=== PATIENT | female | born 1955 | race Caucasian/White ===

== ENCOUNTER 2017-04-29 12:06 | Outpatient (RCR) | payer SELFPAY | END 2017-05-28 23:59 | LOC: NS 12:06 | PROVIDERS: Family Provider Family Medicine; PCP Family Medicine; Visit Provider Specialist | DX: Z68.42 Body mass index [BMI] 45.0-49.9, adult (principal); Z71.3 Dietary counseling and surveillance | CPT/HCPCS: 97802 ==

== ENCOUNTER 2017-06-23 08:59 | Day surgery (SDC) | payer OTHER, SELFPAY ==
[2017-06-23 09:18] VITALS: BP 150/66; PULSE 63; RESP 16; TEMP 37.1; O2SAT 99; BMI 46.3
[2017-06-23] MEDS: Ciprofloxacin 0.3% 2.5ml Bottle 1 DRP (11:30)
--- NOTE | 2017-06-23 11:35 | PCM.DC.EAR ---
Discharge Diet: No Restrictions Discharge Activity: Return to Normal Activity Additional Activity Instructions:: Keep ears dry. Allergies/Adverse Reactions: Allergies No Known Allergies Allergy (Verified 06/20/17 14:52) Medications to take at Discharge Aspirin [Aspirin, Baby] 81 mg PO DAILY@0800 tab.chew 01/20/15 L.acidoph,Paracasei, B.lactis [Probiotic] 1 each PO DAILY 06/20/17 Multivitamin [Daily Multiple Vitamin] 1 each PO DAILY 06/20/17 Primary Care Physician: Igor Velez MD [Primary Care Provider] - Please Follow Up With: Angel Gaming MD - [phone] When: 1-2 weeks.
[2017-06-23 11:38] VITALS: BP 120/58; BP 150/66; PULSE 65; RESP 18; TEMP 36.6; O2SAT 94
[2017-06-23 11:45] VITALS: BP 114/54; BP 150/66; PULSE 64; RESP 16; O2SAT 94
[2017-06-23 11:58] VITALS: BP 125/62; BP 150/66; PULSE 59; RESP 16; O2SAT 99
[2017-06-23 12:10] VITALS: BP 132/79; BP 150/66; PULSE 57; RESP 16; TEMP 36.2; O2SAT 97
[2017-06-23 12:38] VITALS: BP 150/66
--- NOTE | 2017-06-23 12:46 | PCM.OP.BLANK ---
Operative Report Date of Procedure: 06/23/17 Preoperative diagnosis: Chronic serous otitis media Postoperative diagnosis: Same Procedure: Bilateral myringotomy with tympanostomy tube placement Anesthesia: General per Silvina May CRNA Details of procedure: The patient was transported to the operating room and remained on the critical care nurse cart. After the administration of adequate general mask anesthesia the patient was properly positioned, and the microscope was utilized to examine the left ear. Examination revealed retracted drum. Upon myringotomy in the anterior inferior quadrant very little serous fluid was remaining and was evacuated. Ciprofloxacin drops were rinsed through the middle ear and a parasol tube placed. Attention was then directed to the right ear which was examined and treated in similar fashion. In contrast the right ear had more fluid. Upon myringotomy in the anterior inferior aspect this fluid was evacuated. Ciprofloxacin drops were rinsed through the middle ear and a parasol tube placed. Procedure was then terminated. Patient tolerated the procedure well, did not sustain any intraoperative anesthetic or surgical complication, was taken to the PACU where she was noted to be in satisfactory condition. Angel Gaming MD
--- NOTE | 2017-06-23 12:50 | OP.PCM_ITS ---
Operative Report Date of Procedure: 06/23/17 Preoperative diagnosis: Chronic serous otitis media Postoperative diagnosis: Same Procedure: Bilateral myringotomy with tympanostomy tube placement Anesthesia: General per Silvina May CRNA Details of procedure: The patient was transported to the operating room and remained on the care associate cart. After the administration of adequate general mask anesthesia the patient was properly positioned, and the microscope was utilized to examine the left ear. Examination revealed retracted drum. Upon myringotomy in the anterior inferior quadrant very little serous fluid was remaining and was evacuated. Ciprofloxacin drops were rinsed through the middle ear and a parasol tube placed. Attention was then directed to the right ear which was examined and treated in similar fashion. In contrast the right ear had more fluid. Upon myringotomy in the anterior inferior aspect this fluid was evacuated. Ciprofloxacin drops were rinsed through the middle ear and a parasol tube placed. Procedure was then terminated. Patient tolerated the procedure well, did not sustain any intraoperative anesthetic or surgical complication, was taken to the PACU where she was noted to be in satisfactory condition. Angel Gaming MD
== END 2017-06-23 12:50 | disposition home or self-care (01) ==
LOC: SDC 09:02 → AC 09:03
PROVIDERS: Family Provider Family Medicine; PCP Family Medicine; Visit Provider Otolaryngology Otolaryngology/Facial Plastic Surgery
PROC: (CPT 69436; principal; 2017-06-23 11:00)
DX: H65.23 Chronic serous otitis media, bilateral (principal); H69.83 Other specified disorders of Eustachian tube, bilateral; G47.30 Sleep apnea, unspecified; I69.351 Hemiplegia and hemiparesis following cerebral infarction affecting right dominant side; Z86.2 Personal history of diseases of the blood and blood-forming organs and certain disorders involving the immune mechanism; Z78.0 Asymptomatic menopausal state; Z79.82 Long term (current) use of aspirin
CPT/HCPCS: 00126; 69436; J7120; J2405

== ENCOUNTER → 2017-09-26 10:32 | Outpatient (CLI) | payer OTHER, SELFPAY ==
[2017-09-26 11:44] LABS: Free T3 2.7 pg/mL (2.18-3.98); T4 Free Direct 1.06 ng/dL (0.76-1.46); Thyroid Stim Hormone (TSH) 1.98 uIU/mL (0.358-3.74)
[2017-09-28 09:45] LABS: Anti-Thyroglobulin AB < 1.0 IU/mL (0.0-0.9); Thyroglobulin, Serum Qt. 7.3 ng/mL (1.5-38.5); Thyroid Peroxidase AB 14 IU/mL (0-34)
== END ==
PROVIDERS: Family Provider Family Medicine; PCP Family Medicine
DX: E03.9 Hypothyroidism, unspecified (principal)
CPT/HCPCS: 36415; 84432; 84439; 84443; 84481; 86376; 86800

== ENCOUNTER → 2018-03-13 08:00 | Outpatient (CLI) | payer OTHER, SELFPAY ==
[2018-03-13 09:49] LABS: Hemoglobin A1c 7.3 % (4.2-6.3)
[2018-03-13 10:08] LABS: Cholesterol 153 mg/dL (200); Free T3 2.6 pg/mL (2.18-3.98); High Density Lipoprotein 36 mg/dL; T4 Free Direct 1.13 ng/dL (0.76-1.46); Thyroid Stim Hormone (TSH) 1.46 uIU/mL (0.358-3.74); Triglycerides 112 mg/dL; Very Low Density Lipoprotein 22 mg/dL (5-40)
== END ==
PROVIDERS: Family Provider Family Medicine; PCP Family Medicine
DX: E03.9 Hypothyroidism, unspecified (principal); E11.9 Type 2 diabetes mellitus without complications
CPT/HCPCS: 36415; 80061; 83036; 84439; 84443; 84481

== ENCOUNTER → 2018-07-03 | Outpatient (CLI) | payer OTHER, SELFPAY ==
[2018-07-03 07:45] LABS: Absolute Lymphocyte Count 1.95 X10^3/ul (0.83-4.51); Absolute Neutrophil Count 4.4 X10^3/uL (2.0-7.7); Basophil# 0.03 X10^3/uL; Basophil% 0.4 % (0-1); Eosinophils% 2.8 % (0-5); Hematocrit 40.2 % (37-47); Hemoglobin 12.4 g/dl (12.0-15.0); Lymphocyte # 1.95 X10^3/ul (4.0); Lymphocyte % 27.5 % (19-41); Mean Corp Hgb Conc 30.8 g/gl (32-36); Mean Corpuscular Hgb 24.5 pg (27.0-32.0); Mean Corpuscular Volume 79.4 fL (81-99); Mean Platelet Vol. 10.3 fl (6.2-12.0); Monocyte# 0.47 X10^3/uL; Monocyte% 6.6 % (0-10); Neutrophil # 4.44 X10^3/uL (2.7-7.7); Neutrophil % 62.7 % (47-70); Platelet Count 187 K/mm3 (150-450); RBC Distribution Width CV 16.6 % (11.6-14.6); RBC Distribution Width SD 47.7 fl (35.1-43.9); Red Blood Count 5.06 M/mm3 (4.2-5.4); White Blood Count 7.1 K/mm3 (4.4-11.0)
[2018-07-03 07:49] LABS: POSITIVE COUNT NO; POSITIVE DIFFERENTIAL NO; POSITIVE MORPHOLOGY NO
[2018-07-03 07:59] LABS: Hemoglobin A1c 6.7 % (4.2-6.3)
[2018-07-03 08:08] LABS: AST(SGOT) 14 U/L (15-37); Alanine Aminotransfer ALT/SGPT 22 U/L (13-56); Albumin, Serum 3.4 g/dL (3.2-5.0); Alkaline Phosphatase 80 U/L (45-117); Anion Gap 7 (5-15); BUN 25 mg/dL (7-18); BUN/Creat Ratio 26.1 RATIO (10-20); Calcium,Total 8.8 mg/dL (8.5-10.1); Chloride 109 mmol/L (98-107); Cholesterol 159 mg/dL (200); Creatinine, Serum 0.96 mg/dL (0.55-1.02); EST Glomerular Filtration Rate 63 mL/min (>60); Est Glom Filt Rate - Afr Amer 76 mL/min (>60); Globulin 3.5 g/dL (2.2-4.2); Glucose 158 mg/dL (74-106); High Density Lipoprotein 44 mg/dL; Potassium 4.3 mmol/L (3.5-5.1); Protein, Total 6.9 g/dL (6.4-8.2); Sodium Level 141 mmol/L (136-145); Thyroid Stim Hormone (TSH) 2.72 uIU/mL (0.358-3.74); Triglycerides 101 mg/dL; Very Low Density Lipoprotein 20 mg/dL (5-40)
== END | disposition home or self-care (01) ==
LOC: LAB 06:45
PROVIDERS: Family Provider Family Medicine; PCP Family Medicine; Referring Provider Registered Nurse; Visit Provider Registered Nurse
DX: R53.82 Chronic fatigue, unspecified (principal); E66.9 Obesity, unspecified
CPT/HCPCS: 36415; 80053; 80061; 83036; 84443; 85025

== ENCOUNTER → 2018-10-11 | Outpatient (CLI) | payer OTHER, SELFPAY ==
--- NOTE | 2018-10-11 15:30 | EKG12_ITS ---
Test Reason : FAM HX OF HEART DIS. Blood Pressure : / mmHG Vent. Rate : 052 BPM Atrial Rate : 052 BPM P-R Int : 164 ms QRS Dur : 104 ms QT Int : 482 ms P-R-T Axes : 003 -01 007 degrees QTc Int : 448 ms Sinus bradycardia with sinus arrhythmia Otherwise normal ECG Confirmed by NEEMA KRUEGER ([id number]), film and video editor LINO LEON ([id number]) on 10/12/2018 2:14:44 PM Referred By: OUT DOCTOR Confirmed By:NEEMA KRUEGER
[2018-10-11 15:54] LABS: Absolute Lymphocyte Count 2.25 X10^3/uL (0.83-4.51); Absolute Neutrophil Count 5.2 X10^3/uL (2.0-7.7); Basophil# 0.03 X10^3/uL; Basophil% 0.4 % (0-1); Eosinophil# 0.27 X10^3/uL; Eosinophils% 3.3 % (0-5); Hematocrit 41.7 % (37-47); Hemoglobin 12.7 g/dL (12.0-15.0); Lymphocyte # 2.25 X10^3/ul (4.0); Lymphocyte % 27.3 % (19-41); Mean Corp Hgb Conc 30.5 g/dL (32-36); Mean Corpuscular Volume 81.9 fL (81-99); Mean Platelet Vol. 10.2 fl (6.2-12.0); Monocyte# 0.47 X10^3/uL; Monocyte% 5.7 % (0-10); NRBC Flagged by Analyzer 0 % (0-5); Neutrophil # 5.21 X10^3/uL (2.7-7.7); Neutrophil % 63.1 % (47-70); Platelet Count 207 K/mm3 (150-450); RBC Distribution Width CV 16.5 % (11.6-14.6); RBC Distribution Width SD 49.2 fl (35.1-43.9); Red Blood Count 5.09 M/mm3 (4.2-5.4); White Blood Count 8.3 K/mm3 (4.4-11.0)
[2018-10-11 16:39] LABS: Albumin, Serum 3.7 g/dL (3.2-5.0); BUN 21 mg/dL (7-18); BUN/Creat Ratio 21.5 RATIO (10-20); Creatinine, Serum 0.98 mg/dL (0.55-1.02); EST Glomerular Filtration Rate 61 mL/min (>60); Est Glom Filt Rate - Afr Amer 74 mL/min (>60); Glucose 89 mg/dL (74-106); Protein, Total 7.4 g/dL (6.4-8.2)
[2018-10-11 16:40] LABS: AST(SGOT) 12 U/L (15-37); Alanine Aminotransfer ALT/SGPT 25 U/L (13-56); Alkaline Phosphatase 70 U/L (45-117); Anion Gap 7 (5-15); Calcium,Total 9.2 mg/dL (8.5-10.1); Chloride 106 mmol/L (98-107); Globulin 3.7 g/dL (2.2-4.2); Potassium 3.9 mmol/L (3.5-5.1); Sodium Level 141 mmol/L (136-145); Thyroid Stim Hormone (TSH) 1.83 uIU/mL (0.358-3.74)
== END | disposition home or self-care (01) ==
LOC: LAB 15:03
PROVIDERS: Family Provider Family Medicine; PCP Family Medicine
DX: E66.01 Morbid (severe) obesity due to excess calories (principal); Z82.49 Family history of ischemic heart disease and other diseases of the circulatory system
CPT/HCPCS: 36415; 80053; 84443; 85025; 93005

== ENCOUNTER 2021-07-26 18:51 | Observation (INO) | payer OTHER, SELFPAY ==
[2021-07-26 18:51] VITALS: BP 197/87; BP 207/89; PULSE 78; RESP 16; TEMP 36.9; O2SAT 100; BMI 46.4
--- NOTE | 2021-07-26 19:22 | EKG12_ITS ---
Test Reason : CP Blood Pressure : / mmHG Vent. Rate : 066 BPM Atrial Rate : 066 BPM P-R Int : 160 ms QRS Dur : 094 ms QT Int : 410 ms P-R-T Axes : 045 -19 000 degrees QTc Int : 429 ms Normal sinus rhythm with sinus arrhythmia Normal ECG Confirmed by JOSE RAFAEL DEUTSCH, ANNA ([id number]), department editor JENNIE MCADAMS ([id number]) on 07/28/2021 1:17:46 PM Referred By: BB Confirmed By:ANNA MANTILLA MD
--- NOTE | 2021-07-26 19:24 | EDS_ITS ---
HPI History of Present Illness Chief Complaint: Chest Pain Informant: patient and family Onset/Context/Timing Onset: Weeks (1) Activity at onset: rest Timing: Intermittent and Lasts (1-5 min) Quality: Positive for - (grabbing) Location: Right Parasternal Current Severity: Gone Maximum Severity: Severe Worsened By: Nothing; Not Worsened By Breathing Relieved By: Nothing Associated Symptoms: Positive for Nausea and Dyspnea; Negative for Vomiting, Diaphoresis, Cough, Fever, Lightheadedness and Palpitations Narrative Narrative: Patient presenting with episodic chest pain for the last week. She states episodes have mostly been for 1 or 2 minutes, however today earlier it occurred for about 5 minutes and was more severe. During transportation here to the emergency department by private vehicle by her , she had another episode that lasted 3 minutes or so, it is gone now. Episodes were associated with discomfort down her left arm sometimes, but more often discomfort in her upper back, nausea, feeling warm but not sweaty. She has never had any heart problems before. She had a stress test long ago that was negative, because she was having upper abdominal pain and they wanted to rule out cardiac etiology. She has had a history of stroke and takes aspirin since then, she takes no other medications. It left her with mild weakness throughout her right side, she does not require a cane or a walker to get around and does so relatively well. She has chronic edema in her legs, last few days she has had some pain in the right lateral aspect of her lower leg without any changes in the edema. No history of DVT or PE. She has not checked her blood pressure at home at all, and pr esenting here it is very high. [facility] Medical History (Updated 07/26/21 @ 22:[address] Christopher Guzman MD) Diabetes mellitus type 2 in obese Goiter, nontoxic simple Hypomagnesemia Left pontine CVA Morbid obesity Sleep apnea Home Medications aspirin 81 mg PO DAILY@0800 tab.chew 01/20/15 [Rx Last Taken 01/20/15 08:45] Allergy/AdvReac Type Severity Reaction Status Date / Time No Known Allergies Allergy Verified 07/26/21 18:53 Social History Smoking Status: Never smoker ROS ROS ED Constitutional Constitutional ED: Denies chills or fever(s) Eyes Eyes: Denies change in vision or diplopia ENT ENT ED: Denies rhinorrhea or sore throat Cardiovascular Cardiovascular: Reports chest pain; Denies palpitations Respiratory/Chest Respiratory/Chest: Reports dyspnea; Denies cough Gastrointestinal Gastrointestinal: Reports nausea; Denies abdominal pain, diarrhea or vomiting Genitourinary Genitourinary ED: Denies dysuria or hematuria Musculoskeletal Musculoskeletal: Reports back pain; Denies neck pain Integumentary Denies abscess or rash Neurologic Neurologic: Denies headache(s), paresthesias or weakness Psychiatric Psychiatric: Denies anxiety or suicidal thoughts EXAM Physical Exam Const Vital Signs: 07/26/21 18:51 07/26/21 18:57 07/26/21 19:35 Temperature 98.4 F Temperature Source Temporal Pulse Rate 78 59 L Respiratory Rate 16 16 Respiratory Effort Normal Non-Labored Blood Pressure 197/87 H 151/77 H Blood Pressure Mean 123 101 Pulse Ox 100 96 Oxygen Delivery Method Room Air Room Air 07/26/21 21:44 Temperature Temperature Source Pulse Rate 67 Respiratory Rate 18 Respiratory Effort Blood Pressure 145/59 H Blood Pressure Mean 87 Pulse Ox 95 Oxygen Delivery Method Room Air Positive well nourished and well developed General Appearance ED: well developed and NAD Nutritional Appearance: morbidly obese HEENT Reports moist mucous membranes normocephalic and atraumatic Eyes PERRL and EOMs intact bilaterally Neck full ROM and supple Resp normal respiratory effort and clear to auscultation bilaterally Cardio regular rate, regular rhythm and no murmurs GI non-tender and non-distended Auscultation: normoactive bowel sounds Palpation: soft Back/Spine no CVA tenderness General Back: other FROM Extremity normal to inspection and no calf tenderness Extremity Narrative: Negative Homans bilaterally. No palpable cords. General Extremety ED: Yes edema; Negative for pulses abnormal or tenderness General Extremity: edema bilateral lower extremity Details: severe (symmetric w/ signs of chronic stasis dermatitis); Negative for pulses abnormal Neuro oriented x3, CN's II-XII intact bilaterally and no sensory deficits noted Sensorium / Orientation: awake and alert Motor Exam: strength 5/5 throughout Skin no rashes or lesions noted and no wounds Heart Score History: Highly Suspicious ECG: Normal Age: >/= 65 years Risk Factors: 1 or 2 Risk Factors Troponin: </= Normal Limit Score: 5 MDM MDM MDM Narrative Medical decision making narrative: Patient states on reevaluation she had a fleeting episode of chest discomfort but did not tell anybody. She was given labetalol for her very concerning high blood pressure of 207/89. This came down nicely to 145/59. Her initial troponin is negative and the repeat is also the same 2 hours later. This rules out myocardial damage in the recent times, however does not necessarily rule out unstable angina which I am concerned patient may be having. Plan is for inpatient observation. Of note she does have some discomfort in her right lower leg it is laterally, no palpable cords or signs of DVT which I think is unlikely here, and therefore I do not think she has a PE as well because the symptoms are less consistent with that, is intermittent, sound more like unstable angina, especially in conjunction with her blood pressure. Lab Data Attestation: I reviewed the patient's lab results. Labs: Laboratory Results - last 24 hr 07/26/21 07/26/21 07/26/21 19:30 19:30 19:30 WBC 9.8 RBC 5.51 H Hgb 13.8 Hct 44.0 MCV 79.9 L MCH 25.0 L MCHC 31.4 L RDW Std Deviation 48.0 H RDW Coeff of Adalberto 16.9 H Plt Count 226 MPV 10.1 Immature Gran % (Auto) 0.200 Neut % (Auto) 62.1 Lymph % (Auto) 28.5 Mitchell % (Auto) 6.3 Eos % (Auto) 2.4 Baso % (Auto) 0.5 Absolute Neuts (auto) 6.1 Absolute Lymphs (auto) 2.80 Nucleated RBC % 0 APTT 29.3 Sodium 140 Potassium 4.1 Chloride 106 Carbon Dioxide 28.0 Anion Gap 6 BUN 28 H Creatinine 1.07 H Estim Creat Clear Calc 41.46 Est GFR (MDRD) Af Amer 66 Est GFR (MDRD) Non-Af 55 L BUN/Creatinine Ratio 26.2 H Glucose 127 H Calcium 9.5 Troponin I High Sens 4 07/26/21 21:42 WBC RBC Hgb Hct MCV MCH MCHC RDW Std Deviation RDW Coeff of Adalberto Plt Count MPV Immature Gran % (Auto) Neut % (Auto) Lymph % (Auto) Mitchell % (Auto) Eos % (Auto) Baso % (Auto) Absolute Neuts (auto) Absolute Lymphs (auto) Nucleated RBC % APTT Sodium Potassium Chloride Carbon Dioxide Anion Gap BUN Creatinine Estim Creat Clear Calc Est GFR (MDRD) Af Amer Est GFR (MDRD) Non-Af BUN/Creatinine Ratio Glucose Calcium Troponin I High Sens 4 Radiography Diagnostic Testing: Clinical Impression(s) from Imaging Studies Chest X-Ray 07/26/21 19:40 IMPRESSION: Mild cardiomegaly. Prominent right hilum. Recommend comparison to old chest x-ray. If unavailable recommend chest CT without and with contrast if clinically warranted. Electronically Signed: Rob Segovia MD, ARIEL at 20:14 EDT , Rhythm Strip Rhythm Strip: Sinus Rhythm Rate: 70 Ectopy: None EKG Initial EKG: Attestation: I personally reviewed and interpreted this EKG as follows: Interpretation: Sinus Rhythm and No Acute Injury Pattern Discharge Plan Dx/Rx/DC Orders Clinical Impression: Intermittent chest pain, Hypertensive urgency Disposition Disposition: Acute Care Hospital [facility]
[2021-07-26] MEDS: Aspirin 81 MG TAB.CHEW 162 MG PO (19:27)
[2021-07-26] MEDS: Labetalol (Prefilled) 20 MG/4 ML IV (19:27)
[2021-07-26] MEDS: 0.9% Normal Saline 1,000 ML 150 ML IV (19:28)
[2021-07-26 19:35] VITALS: BP 151/77; PULSE 59; RESP 16; O2SAT 96
--- NOTE | 2021-07-26 19:40 | RAD_ITS ---
STUDY: X-RAY CHEST REASON FOR EXAM: Female, 66 years old. chest pain TECHNIQUE: COMPARISON: None. FINDINGS: The lungs are clear and expanded. There is no demonstrated pleural abnormality. Mild cardiomegaly. Normal mediastinum. Prominent right hilum. Normal visualized pulmonary arteries. Normal visualized aortic arch and descending thoracic aorta. Normal visualized thoracic spine. Normal visualized ribs, clavicles, and shoulders. There is no demonstrated abnormality of the visualized soft tissue structures of the upper abdomen. RAD/Chest 1 View (Portable) IMPRESSION: Mild cardiomegaly. Prominent right hilum. Recommend comparison to old chest x-ray. If unavailable recommend chest CT without and with contrast if clinically warranted. Electronically Signed: Rob Segovia MD, ARIEL at 20:14 EDT ,
[2021-07-26 19:44] LABS: Absolute Neutrophil Count 6.1 X10^3/uL (2.0-7.7); Basophil# 0.05 X10^3/uL; Basophil% 0.5 % (0-1); Eosinophil# 0.24 X10^3/uL; Eosinophils% 2.4 % (0-5); Hemoglobin 13.8 g/dL (12.0-15.0); Lymphocyte % 28.5 % (19-41); Mean Corp Hgb Conc 31.4 g/dL (32-36); Mean Corpuscular Volume 79.9 fL (81-99); Mean Platelet Vol. 10.1 fl (6.2-12.0); Monocyte# 0.62 X10^3/uL; Monocyte% 6.3 % (0-10); NRBC Flagged by Analyzer 0 % (0-5); Neutrophil % 62.1 % (47-70); Platelet Count 226 K/mm3 (150-450); RBC Distribution Width CV 16.9 % (11.6-14.6); Red Blood Count 5.51 M/mm3 (4.2-5.4); White Blood Count 9.8 K/mm3 (4.4-11.0)
[2021-07-26 19:50] LABS: Partial Thromboplast Time 29.3 Seconds (24.1-36.2)
[2021-07-26 19:56] LABS: Anion Gap 6 (5-15); BUN 28 mg/dL (7-18); BUN/Creat Ratio 26.2 RATIO (10-20); Calcium,Total 9.5 mg/dL (8.5-10.1); Chloride 106 mmol/L (98-107); Creatinine, Serum 1.07 mg/dL (0.55-1.02); EST Glomerular Filtration Rate 55 mL/min (>60); Est Glom Filt Rate - Afr Amer 66 mL/min (>60); Estimated Creatinine Clearance 41.46 ml/min; Glucose 127 mg/dL (74-106); Potassium 4.1 mmol/L (3.5-5.1); Sodium Level 140 mmol/L (136-145); Troponin-I HS (w/2H Reflex) 4 pg/mL (3.0-54.0)
[2021-07-26 21:34] LABS: Reflex Troponin-HS? (from REC) Y
[2021-07-26 21:44] VITALS: BP 145/59; PULSE 67; RESP 18; O2SAT 95
[2021-07-26 22:27] LABS: Troponin-I HS 4 pg/mL (3.0-54.0)
--- NOTE | 2021-07-26 23:01 | PCM.HP.STD ---
HPI - General General Date of Admission: 07/26/21 HPI Narrative MARIELENA LUTZ, is a 66 F with a significant history of questionable diabetes; morbid obesity; obstructive sleep apnea and right-sided CVA with some residual weakness who presents with worsening substernal intermittent chest pain that began about a week ago. The chest pain always lasted about 1 to 2 minutes and is of lesser severity but on the day of presentation her chest pain lasted longer and it was more severe; even with a severity of 10 on a scale of 1-10. Earlier on the day of presentation her chest pain lasted about 5 minutes and en-route to the hospital her chest pain lasted about 3 minutes. While at the emergency department she also had another episode of brief chest pain. She described her chest pain as squeezing and grabbing. Associated with her symptoms is shortness of breath; nausea without vomiting; and malaise. Of note patient report that about 35 to 40 years ago she had a stress test while a cardiac etiology of an abdominal pain was being ruled out. Also, Patient reports of chronic bilateral leg swelling and a recent right lateral leg pain of severity 4 on a scale of 1-10. Her right lateral leg pain started about 4 to 7 days prior to presentation [facility] Medical History Diabetes mellitus type 2 in obese Goiter, nontoxic simple Hypomagnesemia Left pontine CVA Morbid obesity Sleep apnea Home Medications aspirin 81 mg PO DAILY@0800 tab.chew 01/20/15 [Rx Last Taken 01/20/15 08:45] Allergy/AdvReac Type Severity Reaction Status Date / Time No Known Allergies Allergy Verified 07/26/21 18:53 Family History Other Diabetes Hypertension Surgical History S/P partial hysterectomy Social History Smoking Status: Never smoker ROS ROS Narrative Pertinent positives and pertinent negatives as noted in HPI. All other systems were reviewed and are negative. Vital Signs Vital Signs Vital Signs: 07/26/21 18:51 07/26/21 18:57 07/26/21 19:35 Temperature 98.4 F Temperature Source Temporal Pulse Rate 78 59 L Respiratory Rate 16 16 Respiratory Effort Normal Non-Labored Blood Pressure 197/87 H 151/77 H Blood Pressure Mean 123 101 Pulse Ox 100 96 Oxygen Delivery Method Room Air Room Air 07/26/21 21:44 Temperature Temperature Source Pulse Rate 67 Respiratory Rate 18 Respiratory Effort Blood Pressure 145/59 H Blood Pressure Mean 87 Pulse Ox 95 Oxygen Delivery Method Room Air Weight Weight: 115.212 kg Body Mass Index (BMI) 46.4 Physical Exam Narrative Physical exam: General: Well-nourished, well-developed. Head: Normocephalic, atraumatic, no tenderness Eyes: Vision is grossly intact. EOMI ENT, no trauma, moist mucous membranes, no rhinorrhea Neck: Nontender, full range of motion, no spinal tenderness, deformities, step-off CVS: Regular rate and rhythm. S1-S2 present. No murmur, gallop or rub. Respiratory : clear to auscultation bilaterally, chest wall nontender, no wheezing Abdomen: Soft, nontender, nondistended, normal bowel sounds, no masses : Deferred Back: Nontender, no CVA tenderness, no midline spinal tenderness, deformities, step-offs Extremities: 1 to 2+ of bilateral leg edema. Nontender full range of motion, no trauma Skin: Erythema of bilateral riggs right worse than left. Abrasion on right riggs. Indentation on left riggs. Neuro: Alert, oriented, cranial nerves II through XII grossly intact. Psychiatry: Normal mood. Normal affect. Not depressed. Not anxious. Results Lab / Micro Data Result Diagrams: 07/26/21 19:30 07/26/21 19:30 Labs: Laboratory Results - last 24 hr 07/26/21 19:30: WBC 9.8, RBC 5.51 H, Hgb 13.8, Hct 44.0, MCV 79.9 L, MCH 25.0 L, MCHC 31.4 L, RDW Std Deviation 48.0 H, RDW Coeff of Adalberto 16.9 H, Plt Count 226, MPV 10.1, Immature Gran % (Auto) 0.200, Neut % (Auto) 62.1, Lymph % (Auto) 28.5, Wilkin % (Auto) 6.3, Eos % (Auto) 2.4, Baso % (Auto) 0.5, Absolute Neuts (auto) 6.1, Absolute Lymphs (auto) 2.80, Nucleated RBC % 0 07/26/21 19:30: APTT 29.3 07/26/21 19:30: Sodium 140, Potassium 4.1, Chloride 106, Carbon Dioxide 28.0, Anion Gap 6, BUN 28 H, Creatinine 1.07 H, Estim Creat Clear Calc 41.46, Est GFR (MDRD) Af Amer 66, Est GFR (MDRD) Non-Af 55 L, BUN/Creatinine Ratio 26.2 H, Glucose 127 H, Calcium 9.5, Troponin I High Sens 4 07/26/21 21:42: Troponin I High Sens 4 Rhythm Strip Rhythm Strip: Sinus Rhythm Rate: 70 Ectopy: None Radiology Impression Chest X-Ray 07/26/21 19:40 IMPRESSION: Mild cardiomegaly. Prominent right hilum. Recommend comparison to old chest x-ray. If unavailable recommend chest CT without and with contrast if clinically warranted. Electronically Signed: Rob Segovia MD, ARIEL at 20:14 EDT , Assessment & Plan Assessment/Plan (1) Intermittent chest pain: (2) Hypertensive urgency: (3) Morbid (severe) obesity due to excess calories: PLAN: Intermittent chest pain Place on a monitored bed at progressive care unit Actual CXR image was independently visualized. I agree with radiologist interpretation of mild cardiomegaly and a prominent right hilum. Previous checks x-ray was visualized: Right hilar prominence was not seen. Will follow with urologist recommendation and get a chest CTA. Actual EKG tracing was independently visualized. EKG tracing showed sinus rhythm with sinus arrhythmia without any ST or T wave 6. ASA 81 mg p.o. daily continue SL NTG 0.4 mg prn as needed for chest pain ordered We will check lipid panel. High since he troponin x2 was unremarkable. Serial cardiac enzymes ordered Stat EKG as needed for chest pain Chemical stress test in the AM if the cardiac enzymes are negative. Treadmill stress test not ordered secondary to history of previous CVA with residual right-sided weakness Hypertensive urgency Highest systolic blood pressure at emergency department was 207. Denies previous history of hypertension. Reported last time he saw PCP was over a year ago. Received labetalol at the emergency department As needed hydralazine ordered. Trend blood pressure and adjust blood pressure medications. History of CVA History of CVA 5 to 6 years ago. Reportedly has statin was discontinued because her CVA was thought to be from sleep apnea. Check lipid panel. Continue aspirin. CKD stage II Stable Trend BMP Morbid Obesity : BMI: 42.6 kg/m?. Complicates care. Lifestyle modification recommended. DVT prophylaxis SCD ordered Charges/Coding Visit Charges OBSV E&M: 12898 Initial observation care L3
--- NOTE | 2021-07-26 23:33 | EKG12_ITS ---
Test Reason : CP ADMIT Blood Pressure : / mmHG Vent. Rate : 055 BPM Atrial Rate : 055 BPM P-R Int : 178 ms QRS Dur : 102 ms QT Int : 464 ms P-R-T Axes : -21 -07 002 degrees QTc Int : 443 ms Sinus bradycardia with marked sinus arrhythmia Low voltage QRS Borderline ECG No previous ECGs available Confirmed by JOSE RAFAEL DEUTSCH, ANNA ([id number]), medical editor LINO LENO ([id number]) on 07/29/2021 12:23:02 PM Referred By: Confirmed By:ANNA MANTILLA MD
[2021-07-26 23:34] VITALS: BMI 42.6
[2021-07-26 23:39] VITALS: BP 172/70; PULSE 56; RESP 18; TEMP 36.7; O2SAT 98
[2021-07-26 23:41] VITALS: BP 149/67; PULSE 67; RESP 16; TEMP 36.7; O2SAT 97
[2021-07-26 23:43] VITALS: PULSE 62
[2021-07-27] VITALS (8 sets, daily range): BP systolic 135–160; BP diastolic 66–117; PULSE 52–68; RESP 14–20; TEMP 36.6–37.1; O2SAT 97–99
--- NOTE | 2021-07-27 | CT_ITS ---
STUDY: CTA CHEST REASON FOR EXAM: Female, 66 years old. Abnormal CXR RADIATION DOSAGE (If Supplied By Facility): CTDIvol = ( 12.67 ) mGy, DLP = ( 565.18 ) mGycm TECHNIQUE: The examination was performed with the intravenous administration of IV 100mL Isovue-370. Post-processing of the angiographic images was performed, with multiplanar reformation and 3D reconstruction. Individualized dose optimization techniques were used for this CT. COMPARISON: None. FINDINGS: No filling defect in the pulmonary arteries to suggest pulmonary embolism. Atherosclerosis of the thoracic aorta noted. Calcified density in the right lobe of the thyroid measuring 1.7 cm. No pleural or pericardial effusion. Borderline cardiomegaly. No adenopathy. No pneumothorax. Platelike atelectasis versus linear scars in the right lower lobe. No pulmonary consolidation, mass, or suspicious nodule. A very small hiatal hernia. Sections through the upper abdomen demonstrate evidence of prior gastric lap band surgery. The band is in vertical orientation, suspicious for slippage. Diffuse hepatic steatosis is seen. Multilevel thoracic spondylosis. CT/CTA Chest W/WO Contrast IMPRESSION: No acute finding the chest with no evidence of pulmonary embolism. Vertical orientation of the gastric lap band, raising suspicion for slippage. Clinical correlation recommended Electronically Signed: Lamberto Presley MD at 1:33 EDT ,
[2021-07-27 01:39] LABS: Absolute Lymphocyte Count 2.79 X10^3/uL (0.83-4.51); Absolute Neutrophil Count 5.6 X10^3/uL (2.0-7.7); Basophil# 0.05 X10^3/uL; Basophil% 0.5 % (0-1); Eosinophil# 0.22 X10^3/uL; Eosinophils% 2.4 % (0-5); Hematocrit 40.7 % (37-47); Hemoglobin 12.5 g/dL (12.0-15.0); Lymphocyte # 2.79 X10^3/ul (0.83-4.51); Mean Corp Hgb Conc 30.7 g/dL (32-36); Mean Corpuscular Volume 81.2 fL (81-99); Mean Platelet Vol. 9.9 fl (6.2-12.0); Monocyte% 6.5 % (0-10); NRBC Flagged by Analyzer 0 % (0-5); Neutrophil # 5.62 X10^3/uL (2.7-7.7); Neutrophil % 60.4 % (47-70); Platelet Count 198 K/mm3 (150-450); RBC Distribution Width SD 49.3 fl (35.1-43.9); Red Blood Count 5.01 M/mm3 (4.2-5.4); White Blood Count 9.3 K/mm3 (4.4-11.0)
[2021-07-27 01:56] LABS: Troponin-I HS 4 pg/mL (3.0-54.0)
[2021-07-27 01:58] LABS: Anion Gap 6 (5-15); BUN 27 mg/dL (7-18); BUN/Creat Ratio 27.2 RATIO (10-20); Calcium,Total 8.6 mg/dL (8.5-10.1); Chloride 111 mmol/L (98-107); Cholesterol 140 mg/dL (200); Creatinine, Serum 0.99 mg/dL (0.55-1.02); EST Glomerular Filtration Rate 60 mL/min (>60); Est Glom Filt Rate - Afr Amer 72 mL/min (>60); Estimated Creatinine Clearance 44.81 ml/min; Glucose 137 mg/dL (74-106); High Density Lipoprotein 34 mg/dL; Potassium 4.2 mmol/L (3.5-5.1); Sodium Level 143 mmol/L (136-145); Triglycerides 133 mg/dL; Very Low Density Lipoprotein 27 mg/dL (5-40)
[2021-07-27] MEDS: Aspirin 81 MG TAB.CHEW PO (08:39)
--- NOTE | 2021-07-27 09:28 | STRESSREP ---
Stress Test Report Pharmacologic myocardial perfusion stress test. 66-year-old lady with a history of chest pain pain Stress protocol: Resting KG demonstrates normal sinus rhythm with a rate of 64 bpm normal intervals are noted. 0.4 mg of regadenoson was infused per usual protocol for the rapid venous saline flush injection continuous EKG monitoring was performed. The maximum heart rate attained was 93 bpm which was 60% of max impacted heart rate the maximum workload was 1 metabolic equivalent. At rest there were no ST or T wave changes noted to suggest abnormal flow reserve and at peak infusion nonspecific ST changes were noted with did not meet the criteria for ischemia. No clinical angina was noted. Myocardial perfusion protocol. 14.8 mCi of technetium 99m sestamibi was injected at rest. 0.4 mg of regadenoson was infused per usual protocol. At peak infusion 44.7 mCi of technetium 99m sestamibi was injected stress images were obtained stress and rest images were reconstructed and compared in the short axis vertical long and horizontal long axis. Gated images were also obtained. Perfusion SPECT analysis: Review of the stress images demonstrate normal uptake of tracer noted in all areas of the myocardium. The resting images similarly demonstrate normal uptake of tracer noted in all areas of the myocardium. No areas of reversibility are noted to suggest ischemia and no previous infarct is noted. Gated SPECT analysis: The gated ejection fraction is 67%. Conclusion: Normal pharmacologic myocardial perfusion stress test. Preserved ejection fraction.
[2021-07-27 10:00] LABS: Hemoglobin A1c 6.8 % (3.8-5.6)
[2021-07-27] MEDS: amLODIPine 5 MG Tablet PO (11:00)
--- NOTE | 2021-07-27 11:33 | PCM.DC ---
Discharge Instructions Diet Discharge Diet: 2000 mg Sodium Diet Activity Discharge Activity: Return to Normal Activity Dressing / Incision Call your doctor if you observe: Shortness of breath, Fainting spells, Swelling in the ankles, Chest pain and Increased palpitations (irregular heartbeat) Follow Up Care Please Follow Up With: Igor Velez MD When: 3-5 days Test Results: Test results from this visit will be discussed in further detail at your follow-up appointment, if applicable. Discharge Plan Admission Admit Date/Time: 07/26/21 22:54 Primary Reason for Your Visit: Hypertension, Chest Pain Attending Provider: Kathy Espinosa Primary Care Provider: Igor Velez Consulting Providers: Uli Dave Discharge Orders/Prescriptions Prescriptions: New amlodipine 5 mg Tablet 5 mg PO DAILY 30 Days Qty: 30 RF: 0 Continued aspirin 81 MG tablet,chewable 81 mg PO DAILY@0800 RF: 0 Referrals / Follow Up: Igor Velez MD [Primary Care Provider] - Disposition Disposition (needs filled in before D/C Order can be placed): Home, Self Care
--- NOTE | 2021-07-27 11:39 | PCM.DC.SUM ---
Documented by User: ADRIA Lopez 07/27/21 12:08 Providers Date of Admission: 07/26/21 Primary Care Physician: Dr. Igor Velez MD Reason For Visit: CHEST PAIN Diagnosis Discharge Diagnosis (1) Intermittent chest pain: Status: Acute Code(s): R07.9 - Chest pain, unspecified (2) Hypertensive urgency: Status: Acute Code(s): I16.0 - Hypertensive urgency (3) Morbid (severe) obesity due to excess calories: Status: Acute Code(s): E66.01 - Morbid (severe) obesity due to excess calories Medications at Discharge Home Medications aspirin 81 mg PO DAILY@0800 tab.chew 01/20/15 amlodipine 5 mg PO DAILY 30 Days #30 tab 07/27/21 Hospital Course Operations None Procedures EKG and Nuclear stress test Summary of Care Provided Minutes Spent on Discharge: 35 Hospital Course: Patient is a 66-year-old female who presented with chest pain and elevated blood pressure. Patient is not currently on anything for hypertension. Patient states that the only thing she takes is an aspirin daily. Patient underwent nuclear stress test which was normal and showed an EF of 67%. Patient initiated on amlodipine 5 mg p.o. daily for blood pressure control as patient was hypertensive upon arrival to ER and received 1 dose of IV labetalol. Patient noted to have an elevated hemoglobin A1c at 6.8. Encourage patient to discuss these findings with her PCP when she follows up with him in 3 to 5 days. Patient also encouraged to get a blood pressure monitor to be able to take her blood pressure at home. Physical Exam Const alert, oriented x3 and no apparent distress General Appearance: cooperative HEENT normocephalic and head/scalp atraumatic Eyes conjunctivae normal and no scleral icterus Neck no lymphadenopathy and supple General: trachea midline Resp normal respiratory effort, normal air movement and clear to auscultation bilaterally Cardio regular rate, regular rhythm, S1 normal heart sound, S2 normal heart sound and peripheral pulses 2+ throughout GI normal to inspection, nondistended, normoactive bowel sounds, soft to palpation and non-tender Extremity normal capillary refill and no clubbing, cyanosis or edema General Extremity: no tenderness to palpation of joints or extremities Skin skin turgor normal General Skin Exam: no breakdown Lesions: no lesions Rashes: no rashes Neuro no focal motor deficits and no sensory deficits noted Speech: speech normal Motor Exam: Negative for general weakness Psych affect normal Appearance: appropriate Weight / BMI Weight Weight: 232 lb 15.999 oz Body Mass Index (BMI) 42.6 ABG / Lab / Microbiology Data Result Diagrams: 07/27/21 01:32 07/27/21 01:32 Laboratory: Laboratory Results - last 24 hr 07/26/21 19:30: WBC 9.8, RBC 5.51 H, Hgb 13.8, Hct 44.0, MCV 79.9 L, MCH 25.0 L, MCHC 31.4 L, RDW Std Deviation 48.0 H, RDW Coeff of Adalberto 16.9 H, Plt Count 226, MPV 10.1, Immature Gran % (Auto) 0.200, Neut % (Auto) 62.1, Lymph % (Auto) 28.5, Esmeralda % (Auto) 6.3, Eos % (Auto) 2.4, Baso % (Auto) 0.5, Absolute Neuts (auto) 6.1, Absolute Lymphs (auto) 2.80, Nucleated RBC % 0 07/26/21 19:30: APTT 29.3 07/26/21 19:30: Sodium 140, Potassium 4.1, Chloride 106, Carbon Dioxide 28.0, Anion Gap 6, BUN 28 H, Creatinine 1.07 H, Estim Creat Clear Calc 41.46, Est GFR (MDRD) Af Amer 66, Est GFR (MDRD) Non-Af 55 L, BUN/Creatinine Ratio 26.2 H, Glucose 127 H, Calcium 9.5, Troponin I High Sens 4 07/26/21 21:42: Troponin I High Sens 4 07/27/21 01:32: WBC 9.3, RBC 5.01, Hgb 12.5, Hct 40.7, MCV 81.2, MCH 25.0 L, MCHC 30.7 L, RDW Std Deviation 49.3 H, RDW Coeff of Adalberto 17.0 H, Plt Count 198, MPV 9.9, Immature Gran % (Auto) 0.200, Neut % (Auto) 60.4, Lymph % (Auto) 30.0, Esmeralda % (Auto) 6.5, Eos % (Auto) 2.4, Baso % (Auto) 0.5, Absolute Neuts (auto) 5.6, Absolute Lymphs (auto) 2.79, Nucleated RBC % 0 07/27/21 01:32: Sodium 143, Potassium 4.2, Chloride 111 H, Carbon Dioxide 26.0, Anion Gap 6, BUN 27 H, Creatinine 0.99, Estim Creat Clear Calc 44.81, Est GFR (MDRD) Af Amer 72, Est GFR (MDRD) Non-Af 60, BUN/Creatinine Ratio 27.2 H, Glucose 137 H, Calcium 8.6, Triglycerides 133, Cholesterol 140, LDL Cholesterol 79, VLDL Cholesterol 27, HDL Cholesterol 34 L 07/27/21 01:32: Troponin I High Sens 4 07/27/21 01:32: Hemoglobin A1c 6.8 H Radiography Diagnostic Testing: Radiology Impression Chest X-Ray 07/26/21 19:40 IMPRESSION: Mild cardiomegaly. Prominent right hilum. Recommend comparison to old chest x-ray. If unavailable recommend chest CT without and with contrast if clinically warranted. Electronically Signed: Rob Segovia MD, ARIEL at 20:14 EDT , Chest CTA 07/27/21 00:00 IMPRESSION: No acute finding the chest with no evidence of pulmonary embolism. Vertical orientation of the gastric lap band, raising suspicion for slippage. Clinical correlation recommended Electronically Signed: Lamberto Presley MD at 1:33 EDT , D/C Instructions Discharge Diet: 2000 mg Sodium Diet Call your doctor if you observe: Shortness of breath, Fainting spells, Swelling in the ankles, Chest pain and Increased palpitations (irregular heartbeat) Please Follow Up With: Igor Velez MD When: 3-5 days Meaningful Use Info Meaningful Use Diagnoses (Choose all that apply): None applicable Discharge Plan Admission Admit Date/Time: 07/26/21 22:54 Primary Reason for Your Visit: Hypertension, Chest Pain Attending Provider: Kathy Espinosa Primary Care Provider: Igor Velez Consulting Providers: Uli Dave Discharge Orders/Prescriptions Prescriptions: New amlodipine 5 mg Tablet 5 mg PO DAILY 30 Days Qty: 30 RF: 0 Continued aspirin 81 MG tablet,chewable 81 mg PO DAILY@0800 RF: 0 Referrals / Follow Up: Igor Velez MD [Primary Care Provider] - Disposition Disposition (needs filled in before D/C Order can be placed): Home, Self Care Documented by User: Dr. Kathy Espinosa MD 07/27/21 15:09 Providers Date of Admission: 07/26/21 Reason For Visit: CHEST PAIN Medications at Discharge Home Medications aspirin 81 mg PO DAILY@0800 tab.chew 01/20/15 amlodipine 5 mg PO DAILY 30 Days #30 tab 07/27/21 ABG / Lab / Microbiology Data Result Diagrams: 07/27/21 01:32 07/27/21 01:32 Discharge Plan Admission Admit Date/Time: 07/26/21 22:54 Primary Reason for Your Visit: Hypertension, Chest Pain Attending Provider: Kathy Espinosa Primary Care Provider: Igor Velez Consulting Providers: Uli Dave Discharge Orders/Prescriptions Prescriptions: New amlodipine 5 mg Tablet 5 mg PO DAILY 30 Days Qty: 30 RF: 0 Continued aspirin 81 MG tablet,chewable 81 mg PO DAILY@0800 RF: 0 Referrals / Follow Up: Igor Velez MD [Primary Care Provider] - Disposition Disposition (needs filled in before D/C Order can be placed): Home, Self Care Charges/Coding Addendum Addendum: Patient seen by Jaylene COVINGTON under my supervision Patient is a 66 y/o female with a PMH as outlined who was admitted via the ED with a complaint of chest pain. Chest pain was substernal, started about a week prior to admission, and with no aggravating or relieving factors. She had associated shortness of breath, nausea but no vomiting, and malaise. She was admitted and managed for chest pain to rule out ACS. She did have a CTA which was negative for any evidence of PE or dissection. CXR showed cardiomegaly and prominent right hilum. EKG showed no acute ST changes. She had a stress test on 07/27/2021 which showed no evidence of ischemia and showed EF of 67%. She remained stable, chest pain didnt recur, and she was discharged home on 07/27/2021. She is to follow up with her PCP in 1-2 weeks. OF note, her BP was markedly elevated on admission, so her chest pain could also have been due to hypertensive emergency. She was started on PO amlodipine, and BP improved. She is to follow up with her PCP within one week. Patient seen and examined prior to discharge. She felt much better and had no active complaints. She had an uneventful night and review of systems was otherwise negative. Labs and vitals reviewed. Home meds reviewed and reconciled. O/E: Const alert, oriented x3 and no apparent distress General Appearance: cooperative HEENT normocephalic, head/scalp atraumatic, hearing grossly normal bilaterally and moist oral mucous membranes Eyes PERRL, EOMs intact bilaterally and conjunctivae normal Neck no lymphadenopathy, supple and no JVD Resp normal respiratory effort and clear to auscultation bilaterally Cardio regular rate, regular rhythm, S1 normal heart sound, S2 normal heart sound and no murmurs GI normal to inspection, nondistended, normoactive bowel sounds and soft to palpation Extremity normal to inspection, full ROM and no clubbing, cyanosis or edema Skin no rashes or lesions noted Neuro oriented x3, CN's II-XII intact bilaterally and moves all extremities Sensorium / Orientation: awake and alert Psych affect normal Plan is for discharge home. Rest as per Jaylene Lala CILNICAL SCIENTIST-C's note, which I have reviewed and endorsed Total time spent on care of the patient: 32 mins: I spent 20 mins on care of the patient today. Visit Charges OBSV E&M: 05893 Observation care discharge
== END 2021-07-27 11:33 | disposition home or self-care (01) ==
LOC: ED 22:48 → PCU 23:18
PROVIDERS: Nurse Practitioner Family; Admitting Provider Hospitalist; Emergency Provider Emergency Medicine; PCP Family Medicine; Visit Provider Student in an Organized Health Care Education/Training Program
DX: R07.89 Other chest pain (principal); I69.351 Hemiplegia and hemiparesis following cerebral infarction affecting right dominant side; E11.22 Type 2 diabetes mellitus with diabetic chronic kidney disease; E66.01 Morbid (severe) obesity due to excess calories; Z68.41 Body mass index [BMI] 40.0-44.9, adult; I51.7 Cardiomegaly; Z79.82 Long term (current) use of aspirin; I16.0 Hypertensive urgency; R06.02 Shortness of breath; M79.604 Pain in right leg; R11.0 Nausea; I12.9 Hypertensive chronic kidney disease with stage 1 through stage 4 chronic kidney disease, or unspecified chronic kidney disease; G47.33 Obstructive sleep apnea (adult) (pediatric); N18.2 Chronic kidney disease, stage 2 (mild)
CPT/HCPCS: 36415; 71045; 71275; 78452; 80048; 80061; 83036; 84484; 85025; 85730; 93005; 93017; 94002; 94762; 96361; 96374; 99218; 99251; 99284; A9500; J7030; Q9967; A4216; G0378; G0463; J2785

== ENCOUNTER → 2022-06-18 | Outpatient (CLI) | payer OTHER, SELFPAY | END | disposition home or self-care (01) | PROVIDERS: PCP Family Medicine; Referring Provider Nurse Practitioner Acute Care; Visit Provider Nurse Practitioner Acute Care | DX: G47.30 Sleep apnea, unspecified (principal) | CPT/HCPCS: 95811 ==

== ENCOUNTER → 2022-07-19 | Outpatient (CLI) | payer OTHER, SELFPAY | END | disposition home or self-care (01) | LOC: SL 07:02 | PROVIDERS: PCP Family Medicine; Referring Provider Nurse Practitioner Acute Care; Visit Provider Nurse Practitioner Acute Care | DX: Z00.00 Encounter for general adult medical examination without abnormal findings (principal) ==

== ENCOUNTER → 2023-09-09 | Outpatient (CLI) | payer MEDICARE, SELFPAY ==
--- NOTE | 2023-09-09 16:10 | RAD_ITS ---
STUDY: X-RAY - PELVIS AND LEFT HIP REASON FOR EXAM: Female, 68 years old. OSTEO, PAIN TECHNIQUE: 3 views of the pelvis and hip. COMPARISON: 10/20/2016 FINDINGS: There is a non-specific bowel gas pattern. Normal visualized soft tissue structures. Normal bilateral iliac wings, sacroiliac joints and visualized sacrum. Normal bilateral superior and inferior pubic rami. Normal pubic symphysis. Normal bilateral ischial tuberosities. Normal visualized femoral head. Normal acetabulum. There is mild articular joint space narrowing of the hip. RAD/HIP, UNI W/ Pelvis 2-3 Views IMPRESSION: Mild arthrosis. Electronically Signed: Donn Cornejo MD at 18:59 EDT ,
== END | disposition home or self-care (01) ==
LOC: MTRAD 16:08
PROVIDERS: PCP Family Medicine
DX: M16.12 Unilateral primary osteoarthritis, left hip (principal)
CPT/HCPCS: 73502

== ENCOUNTER 2025-01-12 09:29 | Emergency (ER) | payer MEDICARE, OTHER, SELFPAY ==
[2025-01-12] VITALS (12 sets, daily range): BP systolic 134–187; BP diastolic 52–78; PULSE 48–78; RESP 14–18; TEMP 36.8–37.1; O2SAT 95–100; BMI 44.8
--- NOTE | 2025-01-12 09:45 | EKG12_ITS ---
Test Reason : Blood Pressure : */* mmHG Vent. Rate : 60 BPM Atrial Rate : 60 BPM P-R Int : 178 ms QRS Dur : 94 ms QT Int : 478 ms P-R-T Axes : 72 2 -19 degrees QTcB Int : 478 ms Sinus rhythm with Premature atrial complexes with Aberrant conduction Low voltage QRS Septal infarct , age undetermined Abnormal ECG Confirmed by JOSE RAFAEL DEUTSCH, ANNA ([id number]), assignment desk editor JENNIE MCADAMS ([id number]) on 01/14/2025 9:09:19 AM Referred By: Confirmed By: ANNA MANTILLA MD
--- NOTE | 2025-01-12 09:45 | CT_ITS ---
PROCEDURE: SINUS/FACIAL BONE 01/12/2025 REASON FOR EXAM: FALL TECHNIQUE: Procedure Code: CTSI Modality: CT Procedure: SINUS/FACIAL BONE Coronal and Sagittal reconstruction series were provided. One or more dose reduction techniques were used (e.g., Automated exposure control, adjustment of the mA and/or kV according to patient size, use of iterative reconstruction technique). RADIATION DOSE SUMMARY: CTDlvol: 27.54 mGy DLP: 4479.44 mGycm COMPARISON: None. FINDINGS: Bones: No acute bony abnormalities. Orbits: No acute intraorbital abnormalities. Paranasal sinuses and mastoids: Clear. Soft tissues: Right frontal scalp hematoma CT/Sinus/Facial Bone IMPRESSION: No acute fractures. Right frontal scalp hematoma. Reading Location: [id number]
--- NOTE | 2025-01-12 09:46 | CT_ITS ---
PROCEDURE: SPINE CERVICAL WITHOUT CONTRAS 01/12/2025 REASON FOR EXAM: TRAUMA TECHNIQUE: Procedure Code: CTSPC Modality: CT Procedure: SPINE CERVICAL WITHOUT CONTRAS Coronal and Sagittal reconstruction series were provided. One or more dose reduction techniques were used (e.g., Automated exposure control, adjustment of the mA and/or kV according to patient size, use of iterative reconstruction technique. RADIATION DOSE SUMMARY: CTDlvol: 27.54 mGy DLP: 543.90 mGycm COMPARISON: None. FINDINGS: Alignment: Normal alignment. Vertebrae: Acute bony abnormalities. Soft Tissues: No soft tissue abnormalities. Calcified goiter in the right thyroid lobe. Disc levels: Multilevel degenerate changes predominantly at C4-C5 where there is uncovertebral hypertrophy causing moderate bilateral foramina stenosis. No significant canal stenosis. CT/Spine Cervical without Contras IMPRESSION: No acute injury to the cervical spine. Reading Location: [id number]
--- NOTE | 2025-01-12 09:46 | CT_ITS ---
PROCEDURE: BRAIN/HEAD WITHOUT CONTRAST 01/12/2025 REASON FOR EXAM: TRAUMA TECHNIQUE: Procedure Code: CTBR Modality: CT Procedure: BRAIN/HEAD WITHOUT CONTRAST Coronal and Sagittal reconstruction series were provided. One or more dose reduction techniques were used (e.g., Automated exposure control, adjustment of the mA and/or kV according to patient size, use of iterative reconstruction technique. RADIATION DOSE SUMMARY: CTDlvol: 27.54 mGy DLP: 4479.44 mGycm COMPARISON: None. FINDINGS: Brain: Low density in the periventricular white matter suggests mild chronic small vessel ischemic changes. No acute territorial infarction. No acute intracranial hemorrhage. No mass-effect or midline shift. A calcified right frontal meningioma. CSF Spaces: Unremarkable Sinuses/Mastoids: Clear. Bones: No acute pulmonary disease. Soft tissues: Right frontal scalp hematoma. CT/Brain/Head without Contrast IMPRESSION: No acute intracranial abnormalities. Right frontal scalp hematoma. Reading Location: [id number]
--- NOTE | 2025-01-12 09:46 | CT_ITS ---
PROCEDURE: CT CHEST, ABD, PEL W/CONTRAST 01/12/2025 REASON FOR EXAM: FALL TECHNIQUE: Chest, abdomen and pelvis CT with intravenous contrast. Coronal and Sagittal reconstruction series were provided. One or more dose reduction techniques were used (e.g., Automated exposure control, adjustment of the mA and/or kV according to patient size, use of iterative reconstruction technique. PATIENT PREPARATION: Per protocol CONTRAST: Isovue 370 VOLUME: 97mL RADIATION DOSE SUMMARY: CTDlvol: 27.54 mGy DLP: 4579.44 mGycm COMPARISON: CTA chest 07/27/2021. FINDINGS: CT CHEST: Hardware: Unremarkable Lymph nodes: No lymphadenopathy. Heart and Vasculature: Large cardiomegaly. No aneurysm. Lungs and Airways: Clear. Pleura: No pleural effusion or pneumothorax. Bones: No acute findings. CT ABDOMEN/PELVIS: Liver: Unremarkable. Gallbladder: Unremarkable. No biliary dilation. Spleen: Unremarkable. Pancreas: Unremarkable. Adrenals: Unremarkable. Kidneys: A 1 mm stone at the right ureteropelvic junction causing moderate right hydronephrosis. No left hydronephrosis. Bladder: Unremarkable Reproductive Organs: Unremarkable. Bowel: Gastric band is in place. No bowel obstruction. Colonic diverticulosis. No bowel wall thickening. Appendix: Normal. Lymph nodes: No lymphadenopathy. Vasculature: No aneurysm. Peritoneum / Retroperitoneum: No free air or free fluid. Bones: No acute bony abnormalities. Abdominal wall: A 2.4 cm fat containing umbilical hernia. No evidence of incarceration. CT/CT Chest, Abd, Pel w/Contrast IMPRESSION: No acute injuries. A 1 mm stone at the right ureteropelvic junction causing moderate right hydrone phrosis. Reading Location: [facility]
--- NOTE | 2025-01-12 09:48 | EDS_ITS ---
HPI History of Present Illness Chief Complaint: Fall Narrative Narrative: Patient is a 69-year-old female with past medical history of CVA, type 2 diabetes who presented to the emergency department chief complaint of fall. Patient states that she tried to kick something this morning and fell landing on her right side states that she is lying on the ground and was unable to get up. states that he found her on the ground called EMS to have her brought here for further evaluation management. Patient denies any blood thinners. States that when she fell she did not pass out. [facility] Medical History Acute otitis externa of left ear Morbid obesity Hypomagnesemia Diabetes mellitus type 2 in obese Left pontine CVA Sleep apnea Goiter, nontoxic simple Home Medications Medication Instructions Recorded Last Taken Type aspirin 81 mg chewable tablet 81 mg PO DAILY@0800 12/3001/20/15 08:45 Rx Advanced Blood Pressure Formula PO 06/03/22 Unknown Hi story ondansetron 4 mg disintegrating 4 mg PO Q6H PRN nausea and 01/12/25 Unknown Rx tablet vomiting #20 tabs oxycodone-acetaminophen 5 mg-325 1 tab PO Q6H PRN pain 3 days #12 01/12/25 Unknown Rx mg tablet (Endocet) tabs Allergy/AdvReac Type Severity Reaction Status Date / Time No Known Allergies Allergy Verified 01/12/25 09:41 Family History Other Diabetes Hypertension Surgical History S/P partial hysterectomy Social History Smoking Status: Never smoker alcohol intake: never ROS ROS ED ROS Narrative Constitutional: Denies any headache, lightness, dizziness, fevers, chills Eyes: Denies change in vision double vision Cardiovascular: Denies chest pain Respiratory: Denies shortness of breath Abdomen: Denies abdominal pain : Denies urinary symptoms Neurological: Denies any new numbness, weakness, tingling Musculoskeletal: Complains of right upper extremity pain and right knee pain Skin: Complains of bleeding from her head EXAM Physical Exam Narrative Exam Narrative: General: Patient lying in bed rest comfortably did not appear to be in acute distress Head: Atraumatic, normocephalic Eyes: PERRL bilaterally, EOMI bilaterally, no conjunctival injection noted Neck: Soft, supple, trachea midline Cardiovascular: Regular rate and rhythm Respiratory: Clear to auscultation bilaterally Abdomen: Soft, nondistended Musculoskeletal: Patient is tender to palpation over the right knee, right elbow/right humerus and right shoulder. All other bony prominences palpated joints taken the full range of motion no pain elicited Extremities: Radial pulses +2/4 in the bilateral extremities Neurological: Patient following commands that she was at [facility] year is 2024 Skin: Warm, dry, patient has ecchymosis noted superiorly to her right eye, abrasions noted to her right eyebrow Const Vital Signs: 01/12/25 09:34 01/12/25 10:29 01/12/25 10:29 Temperature 98.3 F Temperature Source Oral Pulse Rate 55 L Pulse Rate [1 (Initial Baseline)] Pulse Rate [2] Pulse Rate [3] Pulse Rate [4] Pulse Rate [5] Respiratory Rate 18 18 Respiratory Rate [1 (Initial Baseline)] Respiratory Rate [2] Respiratory Rate [3] Respiratory Rate [4] Respiratory Rate [5] Respiratory Effort Normal Respiratory Depth Normal Respiratory Pattern Normal Blood Pressure 187/70 H Blood Pressure [1 (Initial Baseline)] Blood Pressure [3] Blood Pressure [4] Blood Pressure [5] Blood Pressure Mean 109 Baseline BP Pulse Ox 100 98 Oxygen Delivery Method Room Air Room Air Room Air Oxygen Delivery Method [1 (Initial Baseline)] Oxygen Delivery Method [2] Oxygen Delivery Method [3] Oxygen Delivery Method [4] Oxygen Delivery Method [5] Oxygen Flow Rate (L/min) Oxygen Flow Rate (L/min) [3] Oxygen Flow Rate (L/min) [5] EtCo2 - Document during CPR and with ROSC EtCo2 - Document during CPR and with ROSC [1 (Initial Baseline)] EtCo2 - Document during CPR and with ROSC [3] EtCo2 - Document during CPR and with ROSC [4] EtCo2 - Document during CPR and with ROSC [5] 01/12/25 11:24 01/12/25 11:24 01/12/25 11:24 Temperature Temperature Source Pulse Rate Pulse Rate [1 (Initial Baseline)] Pulse Rate [2] Pulse Rate [3] Pulse Rate [4] Pulse Rate [5] Respiratory Rate Respiratory Rate [1 (Initial Baseline)] Respiratory Rate [2] Respiratory Rate [3] Respiratory Rate [4] Respiratory Rate [5] Respiratory Effort Respiratory Depth Respiratory Pattern Blood Pressure 134/78 H Blood Pressure [1 (Initial Baseline)] Blood Pressure [3] Blood Pressure [4] Blood Pressure [5] Blood Pressure Mean 96 Baseline BP Pulse Ox Oxygen Delivery Method Room Air Oxygen Delivery Method [1 (Initial Baseline)] Oxygen Delivery Method [2] Oxygen Delivery Method [3] Oxygen Delivery Method [4] Oxygen Delivery Method [5] Oxygen Flow Rate (L/min) Oxygen Flow Rate (L/min) [3] Oxygen Flow Rate (L/min) [5] EtCo2 - Document during CPR and with ROSC 36 EtCo2 - Document during CPR and with ROSC [1 (Initial Baseline)] EtCo2 - Document during CPR and with ROSC [3] EtCo2 - Document during CPR and with ROSC [4] EtCo2 - Document during CPR and with ROSC [5] 01/12/25 11:24 01/12/25 12:12 01/12/25 12:37 Temperature 98.6 F Temperature Source Pulse Rate 48 L 68 Pulse Rate [1 (Initial Baseline)] 65 Pulse Rate [2] 59 L Pulse Rate [3] 55 L Pulse Rate [4] 56 L Pulse Rate [5] 55 L Respiratory Rate 14 16 Respiratory Rate [1 (Initial Baseline)] 18 Respiratory Rate [2] 18 Respiratory Rate [3] 14 Respiratory Rate [4] 18 Respiratory Rate [5] 16 Respiratory Effort Respiratory Depth Respiratory Pattern Blood Pressure 187/62 H 156/53 H Blood Pressure [1 (Initial Baseline)] 187/62 H Blood Pressure [3] 172/64 H Blood Pressure [4] 152/69 H Blood Pressure [5] 151/52 H Blood Pressure Mean Baseline BP 187/62 Pulse Ox 98 100 Oxygen Delivery Method Room Air Nasal Cannula Oxygen Delivery Method [1 (Initial Baseline)] Nasal Cannula Oxygen Delivery Method [2] Nasal Cannula Oxygen Delivery Method [3] Nasal Cannula Oxygen Delivery Method [4] Nasal Cannula Oxygen Delivery Method [5] Room Air Oxygen Flow Rate (L/min) 5 Oxygen Flow Rate (L/min) [3] 5 Oxygen Flow Rate (L/min) [5] 5 EtCo2 - Document during CPR and with ROSC 44 38 EtCo2 - Document during CPR and with ROSC [1 (Initial Baseline)] 40 EtCo2 - Document during CPR and with ROSC [3] 41 EtCo2 - Document during CPR and with ROSC [4] 35 EtCo2 - Document during CPR and with ROSC [5] 40 01/12/25 12:42 01/12/25 12:47 01/12/25 13:00 Temperature Temperature Source Pulse Rate 54 L 70 76 Pulse Rate [1 (Initial Baseline)] Pulse Rate [2] Pulse Rate [3] Pulse Rate [4] Pulse Rate [5] Respiratory Rate 16 18 14 Respiratory Rate [1 (Initial Baseline)] Respiratory Rate [2] Respiratory Rate [3] Respiratory Rate [4] Respiratory Rate [5] Respiratory Effort Respiratory Depth Respiratory Pattern Blood Pressure 159/53 H 169/68 H 167/78 H Blood Pressure [1 (Initial Baseline)] Blood Pressure [3] Blood Pressure [4] Blood Pressure [5] Blood Pressure Mean 107 Baseline BP Pulse Ox 100 98 Oxygen Delivery Method Nasal Cannula Room Air Oxygen Delivery Method [1 (Initial Baseline)] Oxygen Delivery Method [2] Oxygen Delivery Method [3] Oxygen Delivery Method [4] Oxygen Delivery Method [5] Oxygen Flow Rate (L/min) 2 Oxygen Flow Rate (L/min) [3] Oxygen Flow Rate (L/min) [5] EtCo2 - Document during CPR and with ROSC 38 38 EtCo2 - Document during CPR and with ROSC [1 (Initial Baseline)] EtCo2 - Document during CPR and with ROSC [3] EtCo2 - Document during CPR and with ROSC [4] EtCo2 - Document during CPR and with ROSC [5] 01/12/25 14:00 01/12/25 15:00 01/12/25 16:00 Temperature Temperature Source Pulse Rate 74 78 64 Pulse Rate [1 (Initial Baseline)] Pulse Rate [2] Pulse Rate [3] Pulse Rate [4] Pulse Rate [5] Respiratory Rate 14 16 18 Respiratory Rate [1 (Initial Baseline)] Respiratory Rate [2] Respiratory Rate [3] Respiratory Rate [4] Respiratory Rate [5] Respiratory Effort Respiratory Depth Respiratory Pattern Blood Pressure 160/72 H 161/66 H 148/78 H Blood Pressure [1 (Initial Baseline)] Blood Pressure [3] Blood Pressure [4] Blood Pressure [5] Blood Pressure Mean 101 97 101 Baseline BP Pulse Ox 98 98 Oxygen Delivery Method Room Air Room Air Oxygen Delivery Method [1 (Initial Baseline)] Oxygen Delivery Method [2] Oxygen Delivery Method [3] Oxygen Delivery Method [4] Oxygen Delivery Method [5] Oxygen Flow Rate (L/min) Oxygen Flow Rate (L/min) [3] Oxygen Flow Rate (L/min) [5] EtCo2 - Document during CPR and with ROSC EtCo2 - Document during CPR and with ROSC [1 (Initial Baseline)] EtCo2 - Document during CPR and with ROSC [3] EtCo2 - Document during CPR and with ROSC [4] EtCo2 - Document during CPR and with ROSC [5] MDM MDM MDM Narrative Medical decision making narrative: Patient is a 69-year-old female who presented to the emergency department chief complaint of fall earlier this morning. On the differential diagnose includes but limited to intracranial hemorrhage, cervical spine fracture, maxillofacial injury, skin abrasion, humerus fracture, elbow dislocation, wrist fracture, distal femur fracture, tibial plateau fracture. Patient will given IV fluids morphine Zofran and tetanus shot will be updated. . Patient's CBC reviewed showed no evidence of leukocytosis white blood count was 7.4, he was 14.4, platelet count was noted be 200. Patient's INR normal at 1, PT of 13.1, sodium was 137, potassium normal 4, creatinine 0.84. Patient's AST and ALT are 23 and 26 respectively. Patient urinalysis reviewed showed no evidence of infection. Patient CT face showed no acute fractures right frontal scalp hematoma noted. Patient CT brain showed no acute intracranial abnormalities. Patient CT skull spine showed no acute fracture/listhesis of the cervical spine. Patient CT chest 7 pelvis IV contrast reviewed showed no acute injuries. She has a 1 mm stone at the right ureteropelvic junction causing moderate right hydronephrosis. Patient's x-ray of her elbow reviewed showed a posterior ulnar and radial head dislocation with questionable minimal fragmentation generative changes of the right shoulder as well as right hand no fracture or subluxation. Patient's x- ray of her knee reviewed by myself by radiology which showed no acute fracture or dislocation she has small joint effusion noted. Patient's x-ray of her shoulder reviewed which showed no acute fracture or dislocation of the proximal humerus this was reviewed by myself and by radiology. Patient did undergo procedural sedation and we discussed risks and benefits of this and postreduction x-rays were obtained see procedure note for separate details. After reduction in the room I asked the x-ray to obtain a stat x-ray and this s till did not show anatomic alignment and she was still dislocated therefore attempted to reduce again with a another stat lateral x-ray obtained which showed much improved alignment therefore she was then placed in a posterior long-arm splint and formal x-rays were obtained. Patient remained neurovascular intact after splint application. At 4:10 PM x-rays were officially read after multiple phone calls down to radiology. They read this as limited study however anatomic alignment of the radiocapitellar and ulnar trochlear joint spaces but they are abnormally widened cortical irregularity noted in the proximal radius suggesting nondisplaced osteochondral fracture is noted soft tissue swelling and joint effusion noted which is likely causing the widening in my opinion. Setting is limited by positioning and overlapping of the cast material these were reviewed by myself and by radiology. I reach back out to Dr. Cabello for a second time and after the final reads and ensured that he was still good with the plan which he was. I discussed the results with the patient and she was vies rotate Tylenol and I Profen [id number] as well as use the Endocet and Zofran for severe pain. She advised to not operate anything in the influence of the medication/narcotic. She is encouraged return with worsening symptoms or concerns. She is advised to have her sutures removed in approxi-7 days see procedure note for separate details on this as well. Patient and family member/ at bedside is agreeable all course concerns answered she was discharged home in stable condition. Patient tolerated oral challenge. She was advised to not make any life altering decisions since she received anesthesia today. Procedure note Consent: Written consent obtained (see nursing note) Risks and benefits and alternatives were discussed Consent given by: Patient and/or guardian Patient understanding: Patient/guardian states understanding of the procedure being performed Patient consent: The patient/guardian's understanding the procedure matches given consent. Patient identity confirmed: Verbally with the patient and the armband Timeout: Immediately prior to the procedure a timeout was called to clarify the correct patient, procedure, equipment, research support specialist and site/side marked as required. Medication IV: Propofol 110 mg Complications: Tolerated well without complication. No hypoxic episodes. Time: Total intraservice time with the patient was 20 minutes. Procedure note Procedure name: Laceration repair Indication: Reduce risk of infection Location: Right hypothenar eminence linear laceration 1-1/2 cm Preprocedure diagnosis: Laceration Postprocedure diagnosis: Repaired laceration Informed consent was obtained prior to procedure started. Procedure: The appropriate timeout was taken. The area was prepped and draped in usual sterile fashion. Local anesthesia was achieved using 3 cc of lidocaine 1% without epinephrine. Wound was copiously irrigated. 3 4-0 Ethilon interrupted sutures were placed. Estimated blood loss was less than 0.5 mL. Dressing was applied to the area and anticipatory guidance, as well as standard postprocedure care was explained. Return precautions are given. Patient Toller procedure well without any complications. Follow-up visit for suture removal and evaluation of laceration. Lab Data Labs: Laboratory Results - last 24 hr 01/12/25 01/12/25 09:45 11:29 WBC 7.4 RBC 5.45 H Hgb 14.4 Hct 44.8 MCV 82.2 MCH 26.4 L MCHC 32.1 RDW Std Deviation 41.9 RDW Coeff of Adalberto 14.1 Plt Count 200 MPV 10.2 Immature Gran % (Auto) 0.400 Neut % (Auto) 77.8 H Lymph % (Auto) 16.0 L [place] % (Auto) 4.4 Eos % (Auto) 0.9 Baso % (Auto) 0.5 Absolute Neuts (auto) 5.8 Absolute Lymphs (auto) 1.19 Nucleated RBC % 0 PT 13.1 INR 1.0 APTT 25.7 Sodium 137 Potassium 4.0 Chloride 102 Carbon Dioxide 21.1 Anion Gap 14 BUN 21 H Creatinine 0.84 Estim Creat Clear Calc 75.43 Est GFR (MDRD) Non-Af 76 BUN/Creatinine Ratio 24.8 H Glucose 386 H Calcium 9.5 Total Bilirubin 0.69 Direct Bilirubin 0.29 AST 23 ALT 26 Alkaline Phosphatase 82 Total Creatine Kinase 99 Total Protein 6.7 Albumin 4.0 Globulin 2.8 Urine Color Yellow Urine Clarity Clear Urine pH 7.0 Ur Specific [place] 1.005 Urine Protein 15 H Urine Glucose (UA) 1000 H Urine Ketones 15 H Urine Occult Blood Negative Urine Nitrite Negative Urine Bilirubin Negative Urine Urobilinogen Normal Ur Leukocyte Esterase Negative Urine RBC 0 SEEN Urine WBC 0-5 SEEN Ur Squamous Epith Cells 0 SEEN Urine Bacteria 0 SEEN Urine Mucus 0 SEEN Radiography Diagnostic Testing: Clinical Impression(s) from Imaging Studies Facial/Sinus 01/12/25 09:45 IMPRESSION: No acute fractures. Right frontal scalp hematoma. Reading Location: [id number] Brain CT 01/12/25 09:46 IMPRESSION: No acute intracranial abnormalities. Right frontal scalp hematoma. Reading Location: [id number] Cervical Spine CT 01/12/25 09:46 IMPRESSION: No acute injury to the cervical spine. Reading Location: [id number] Chest/Abdomen/Pelvis CT 01/12/25 09:46 IMPRESSION: No acute injuries. A 1 mm stone at the right ureteropelvic junction causing moderate right hydronephrosis. Reading Location: [id number] Elbow X-Ray 01/12/25 10:54 IMPRESSION: 1. Posterior ulnar and radial head dislocation with questionable minimal fragmentation. 2. Degenerative changes of the right shoulder as well as the right hand. No fracture or subluxation. Reading Location: [facility] Femur X-Ray 01/12/25 10:54 IMPRESSION: Moderate tricompartmental osteoarthritic degenerative changes of the right knee with small right knee effusion in addition to mild degenerative changes of the right hip. No fracture or subluxation. Reading Location: [facility] Forearm X-Ray 01/12/25 10:54 IMPRESSION: 1. Posterior ulnar and radial head dislocation with questionable minimal fragmentation. 2. Degenerative changes of the right shoulder as well as the right hand. No fracture or subluxation. Reading Location: [id number] Hand X-Ray 01/12/25 10:54 IMPRESSION: 1. Posterior ulnar and radial head dislocation with questionable minimal fragmentation. 2. Degenerative changes of the right shoulder as well as the right hand. No fracture or subluxation. Reading Location: [facility] Knee X-Ray 01/12/25 10:54 IMPRESSION: Moderate tricompartmental osteoarthritic degenerative changes of the right knee with small right knee effusion in addition to mild degenerative changes of the right hip. No fracture or subluxation. Reading Location: [facility] Shoulder X-Ray 01/12/25 10:54 IMPRESSION: 1. Posterior ulnar and radial head dislocation with questionable minimal fragmentation. 2. Degenerative changes of the right shoulder as well as the right hand. No fracture or subluxation. Reading Location: [facility] Elbow X-Ray 01/12/25 12:20 IMPRESSION: Persistent dislocation of the elbow joints with soft tissue swelling and joint effusion No clearly demonstrated fracture Reading Location: [facility] Elbow X-Ray 01/12/25 12:25 IMPRESSION: Near anatomic alignment with persistent subluxation and widening of the radiocapitellar and ulnar trochlear joint spaces after a 2nd attempt at reduction. Acute minimally displaced osteochondral fracture of the radial head Triceps insertion spur Soft tissue swelling and joint effusion Study is limited, only 1 lateral view obtained Reading Location: [facility] Elbow X-Ray 01/12/25 12:55 IMPRESSION: Limited study shows anatomic alignment of the radiocapitellar and ulnar trochlear joint spaces but they are abnormally widened. Cortical irregularity noted in the proximal radius suggesting a nondisplaced osteochondral fracture is present Soft tissue swelling and joint effusion Study limited by positioning, and overlapping casting material Reading Location: [facility] Procedures Procedural Sedation 1 (Initial Baseline): Consent Signed: Yes Any Problems With Anesthesia: No You/Your family experience fever (hyperthermia) w/anesthesia: No Sedation medication: Propofol Route: IV Maliampati Score: Class III ASA Classification: III Discharge Plan Triage Chief Complaint: Fall ED Provider: Deric Escamilla Dx/Rx/DC Orders Clinical Impression: Closed dislocation of right elbow, Fall, Laceration of hand, right, Knee pain, right, Ecchymosis of right eye Prescriptions: New oxycodone-acetaminophen [Endocet] 5-325 mg tablet 1 tab PO Q6H PRN (Reason: pain) 3 Days Qty: 12 0RF ondansetron 4 mg tablet,disintegrating 4 mg PO Q6H PRN (Reason: nausea and vomiting) Qty: 20 0RF No Action Advanced Blood Pressure Formula PO aspirin 81 MG tablet,chewable 81 mg PO DAILY@0800 0RF Patient Comments: HEART HEALTH/PREVENTION Primary Care Provider: Bernarda Mora Referrals: Bernarda Mora MD [Primary Care Provider, Family Practice] Albert Cabello MD [Med Staff - Active Staff, Orthopedics] Activity Restrictions/Additional Instructions: Follow-up with the orthopedic surgeon they referred to. Return with worsening symptoms or any concerns. Rotate Tylenol and ibuprofen [id number] when you do this you can take something every 3 hours for pain max dose Tylenol in 24 hours 4000 mg max dose of ibuprofen in 24 hours 3200 mg. Use the Endocet and Zofran for severe pain. Do not operate anything under the influence of Endocet it will make you sleepy and drowsy. Follow-up with your doctor with having your sutures removed in approximately 7 days in your hand do not soak these watch out for signs of infection. Print Language: Persian Disposition Disposition: Home, Self Care
[2025-01-12 10:00] LABS: Hematocrit 44.8 % (37-47); Hemoglobin 14.4 g/dL (12.0-15.0); Immature Granulocytes Count 0.030 X10^3/uL (0.0-0.0); Mean Corp Hgb Conc 32.1 g/dL (32-36); Mean Corpuscular Volume 82.2 fL (81-99); Mean Platelet Vol. 10.2 fl (6.2-12.0); NRBC Flagged by Analyzer 0 % (0-5); Platelet Count 200 K/mm3 (150-450); RBC Distribution Width CV 14.1 % (11.6-14.6); RBC Distribution Width SD 41.9 fl (35.1-43.9); Red Blood Count 5.45 M/mm3 (4.2-5.4); White Blood Count 7.4 K/mm3 (4.4-11.0)
[2025-01-12 10:06] LABS: Prothrombin Time (Protime)PT. 13.1 SECONDS (11.7-14.9)
[2025-01-12 10:07] LABS: Partial Thromboplast Time 25.7 Seconds (24.1-36.2)
[2025-01-12] MEDS: 0.9% Normal Saline (1000mL) 1,000 ML 999 ML IV (10:09)
[2025-01-12 10:36] LABS: AST(SGOT) 23 U/L (<=31); Alanine Aminotransfer ALT/SGPT 26 U/L (<=34); Albumin, Serum 4.0 g/dL (3.4-4.8); Alkaline Phosphatase 82 U/L (35-104); Anion Gap 14 (5-15); BUN 21 mg/dL (4-19); BUN/Creat Ratio 24.8 RATIO (10-20); Bilirubin, Direct 0.29 mg/dL (0.00-0.30); CPK Total, Creatine Kinase 99 U/L (24-195); Calcium,Total 9.5 mg/dL (7.6-11.0); Carbon Dioxide 21.1 mmol/L (21.0-32.0); Chloride 102 mmol/L (98-108); Estimated Creatinine Clearance 75.43 ml/min (50-250); Globulin 2.8 g/dL (2.2-4.2); Glucose 386 mg/dL (70-99); Potassium 4.0 mmol/L (3.3-5.1)
--- OUTSIDE RECORDS SUMMARY | 2025-01-12 10:39 | XMS RPT_ITS | CCD ---
Author Organization [facility] Care Team Providers Care Real Estate Rental Agent Name Role Phone RODDY SHARP (ASPHALT ENGINEER) Unavailable Unavailable HOOD, LOLSI (PT) Unavailable Unavailable GRECO, GREGORY S (POSTAL MAIL CARRIER) Unavailable Unavailabl e HOOD, LOLIS (PT) Unavailable Unavailable GRECO, GREGORY S (POSTAL MAIL CARRIER) Unavailable Unavailabl e HOOD, LOLIS (PT) Unavailable Unavailable GRECO, GREGORY S (POSTAL MAIL CARRIER) Unavailable Unavailabl e HOOD, LOLIS (PT) Unavailable Unavailable GRECO, GREGORY S (POSTAL MAIL CARRIER) Unavailable Unavailabl e HOOD, LOLIS (PT) Unavailable Unavailable GRECO, GREGORY S (POSTAL MAIL CARRIER) Unavailable Unavailabl e HOOD, LOLIS (PT) Unavailable Unavailable GRECO, GREGORY S (POSTAL MAIL CARRIER) Unavailable Unavailabl e HOOD, LOLIS (PT) Unavailable Unavailable GRECO, GREGORY S (POSTAL MAIL CARRIER) Unavailable Unavailabl e HOOD, LOLIS (PT) Unavailable Unavailable DILEEP, LATASHA K Unavailable Unavailable HOOD, LOLIS (PT) Unavailable Unavailable DILEEP, LATASHA K Unavailable Unavailable HOOD, LOLIS (PT) Unavailable Unavailable DILEEP, LATASHA K Unavailable Unavailable HOOD, LOLIS (PT) Unavailable Unavailable DILEEP, LATASHA K Unavailable Unavailable NORMAN, JACQUE J Unavailable Unavailable NORMAN, JACQUE J Unavailable Unavailable NORMAN, JACQUE J Unavailable Unavailable Maxi ZAMUDIO (PA-C) Unavailable Unavail able Dr. Igor Velez Primary Care Provider [phone] Dr. Igor Velez Referring Provider LASHAWN Hart Attending Provider [phone] Hortensia POSTAL MAIL CARRIER, POSTAL MAIL CARRIER-C Marlene Attending Provider [phone] Dr. Igor Velez Primary Care Provider Dr. Igor Velez Referring Provider Dr. Bernarda Mora MD Primary Care Provider Dr. Bernarda Mora MD Referring Provider Marlene Christie Attending Provider Hortensia DUARTE, Marlene Attending Unavailable Bernarda Mora Referring Unavailable Bernarda Mora Primary Care Unavailable Bernarda Mora Primary Care Unavailable Costa Hart Attending Unavailable Bernarda Mora Referring Unavailable Allergies Allergy Classification Reported Allergen(s) Allergy Type Date of Onset Reaction(s) Facility (1 source) Sulfonamides (Antibiotic); Translations: [SULFA (SULFONAMIDE ANTIBIOTICS)] Propensity to adverse reactions to drug (disorder) 7 [facility] Repository (1 source) RAGWEED; Translations: [RAGWEED] Propensity to adverse reactions to drug (disorder) 7 [facility] Repository Medications Current Medications Medication Drug Class(es) Dates Sig (Normalized) Sig (Original) Advanced Blood Pressure Formula (3 sources) Start: 06-03-2022 Advanced Blood Pressure Formula Active PO June 03, 2022 12:00am aspirin 81 mg chewable tablet (3 sources) Platelet Aggregation Inhibitor, Nonsteroidal Anti-inflammatory Drug Start: 01-20-2015 take 1 tablet by mouth once daily Aspirin 81 MG tablet,chewable Active 81 mg PO DAILY@0800 0 January 20, 2015 1:00am Completed/Discontinued Medications Medication Drug Class(es) Dates Sig (Normalized) Sig (Original) amLODIPine 5 mg oral tablet (3 sources) Dihydropyridine Calcium Channel Francine Start: 07-27-2021 End: 06-03-2022 take 1 tablet by mouth once daily Amlodipine 5 mg Tablet Discontinued 5 mg PO DAILY 30 30 0 July 27, 2021 12:00am June 03, 2022 1:06pm amoxicillin 875 mg / clavulanate 125 mg oral tablet (3 sources) Penicillin-class Antibacterial Start: 03-19-2022 End: 03-29-2022 Amoxicillin-Pot Clavulanate 875-125 mg tablet Discontinued 1 {tbl} PO Q12H 20 10 0 March 19, 2022 1:00am 2022 1:00am March 29, 2022 1:03am Acute sinusitis, unspecified Start: 03-19-2022 End: 03-29-2022 take 1 tablet by mouth every twelve hours Amoxicillin-Pot Clavulanate Discontinued 1 TABLET PO Q12H 20 March 19, 2022 1:00am March 29, 2022 1:03am hydrocortisone 10 mg/ml / neomycin 3.5 mg/ml / polymyxin b [id number] unt/ml otic suspension (8 sources) Aminoglycoside Antibacterial, Polymyxin-class Antibacterial, Corticosteroid Start: 01-19-2024 End: 01-29-2024 Licsknhl-Hyaynlnav-Rj 3.5-10,000-1 mg/mL-unit/mL-% drops,suspension Discontinued 3 NMA OTIC Q4H 10 10 January 19, 2024 1:00am January 28, 2024 1:00am January 29, 2024 1:09am apply to (cotton) wick; replace wick every 24 hours Start: 01-11-2023 End: 01-21-2023 Lqlthnlz-Ipdkwbmoj-Nq 3.5-10 ,000-1 mg/mL-unit/mL-% solution Discontinued 4 NMA OTIC THREE TIMES A DAY 10 January 11, 2023 1:00am January 20, 2023 1:00am January 21, 2023 1:05am To affected ear as instructed today. Start: 03-19-2022 End: 03-29-2022 Wbkzhasb-Xdexffqjg-Vw 3.5-10 ,000-1 mg/mL-unit/mL-% drops,suspension Discontinued 3 NMA OTIC Q4H 10 10 March 19, 2022 1:00am 2022 1:00am March 29, 2022 1:03am apply to (cotton) wick; replace wick every 24 hours Start: 03-19-2022 End: 03-29-2022 Eoodiexg-Mixahkwls-Wa Discon tinued 3 DRP OTIC Q4H 10 10 March 19, 2022 1:00am March 29, 2022 1:03am apply to (cotton) wick; replace wick every 24 hours Start: 10-08-2021 End: 10-18-2021 Ezcmsaar-Blooiwasr-Go 3.5-10 ,000-1 mg/mL-unit/mL-% drops,suspension Discontinued 3 NMA OTIC Q4H 10 10 0 October 08, 2021 12:00am October 17, 2021 12:00am October 18, 2021 12:03am apply to (cotton) wick; replace wick every 24 hours Start: 10-08-2021 End: 10-18-2021 Wwyvsrgv-Gkmeubasf-Xf Discon tinued 3 DRP OTIC Q4H 10 October 08, 2021 12:00am October 18, 2021 12:03am apply to (cotton) wick; replace wick every 24 hours zolpidem tartrate 5 mg oral tablet (3 sources) gamma-Aminobutyric Acid-ergic Agonist Start: 01-20-2015 End: 02-03-2015 take 1 tablet by mouth at bedtime as needed Zolpidem 5 MG tablet Discontinued 5 mg PO AT BEDTIME NEEDED as needed for INSOMNIA 0 0 January 20, 2015 1:00am February 03, 2015 9:37am Problems Active Problems Problem Classification Problem Date Documented Date Episodic/Chronic Acute cerebrovascular disease (3 sources) Cerebrovascular accident; Translations: [Cerebral infarction, unspecified] 07-26-2021 Chronic Cardiac dysrhythmias (5 sources) Irregular heart beat; Translations: [Cardiac arrhythmia, unspecified] 06-03-2022 Chronic Diabetes mellitus with complications (3 sources) Type 2 diabetes mellitus in obese; Translations: [Type 2 diabetes mellitus with other specified complication] 07-26-2021 Chronic Disorders of lipid metabolism (1 source) Mixed hyperlipidemia; Translations: [Mixed hyperlipidemia] Onset: 03-16-2017 Chronic Hypertension with complications and secondary hypertension (3 sources) Hypertensive urgency ; Translations: [Hypertensive urgency] 08-04-2021 Chronic Nonspecific chest pain (3 sources) Chest pain; Translations: [Chest pain, unspecified] 07-26-2021 Episodic Other connective tissue disease (3 sources) Muscle weakness; Translations: [Muscle weakness (generalized)] 06-23-2017 Episodic Other ear and sense organ disorders (3 sources) Otitis externa; Translations: [Unspecified otitis externa, bilateral] 10-08-2021 Chronic Other ear and sense organ disorders (3 sources) Hearing loss; Translations: [Unspecified hearing loss, unspecified ear] 06-23-2017 Chronic Other ear and sense organ disorders (1 source) Unspecified otitis externa, bilateral; Translations: [Infective otitis externa, unspecified] 03-19-2022 Chronic Other ear and sense organ disorders (1 source) Acute otitis externa; Translations: [Unspecified acute noninfective otitis externa, left ear] 01-11-2023 Episodic Other nervous system disorders (3 sources) Dysarthria; Translations: [Dysarthria and anarthria] 06-23-2017 Episodic Other nervous system disorders (3 sources) Numbness of face; Translations: [Anesthesia of skin] 06-23-2017 Episodic Other nutritional; endocrine; and metabolic disorders (5 sources) Morbid obesity; Translations: [Morbid (severe) obesity due to excess calories] 07-26-2021 Chronic Other nutritional; endocrine; and metabolic disorders (3 sources) Hypomagnesemia; Translations: [Hypomagnesemia] 07-26-2021 Chronic Other nutritional; endocrine; and metabolic disorders (2 sources) Morbid (severe) obesity due to excess calories; Translations: [Morbid obesity] 06-03-2022 Chronic Other nutritional; endocrine; and metabolic disorders (1 source) Obesity caused by energy imbalance; Translations: [Morbid (severe) obesity due to excess calories] 07-26-2021 Chronic Other nutritional; endocrine; and metabolic disorders (1 source) Obesity; Translations: [Obesity, unspecified] 10-26-2023 Chronic Residual codes; unclassified (3 sources) Sleep apnea; Translations: [Sleep apnea, unspecified] 06-03-2022 Chronic Comment on above: AHI 30, CPAP 11 cmH2 O Residual codes; unclassified (2 sources) Sleep apnea, unspecified; Translations: [Unspecified sleep apnea] 06-03-2022 Chronic Thyroid disorders (3 sources) Simple goiter; 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] 07-26-2021 Chronic Unclassified (1 source) Unknown / UNK(Unknown) Onset: 03-16-2017 Past or Other Problems Problem Classification Problem Date Documented Da te Episodic/Chronic Chronic obstructive pulmonary disease and bronchiectasis (1 source) Bronchitis, not specified as acute or chronic; Translations: [Bronchitis, not specified as acute or chronic] Onset: 03-16-2017 Episodic Diabetes mellitus without complication (1 source) Hyperglycemia, unspecified; Translations: [Hyperglycemia, unspecified] Onset: 03-16-2017 Episodic Other connective tissue disease (1 source) Pain in right leg; Translations: [Pain in right leg] Onset: 12-06-2016 Episodic Other hematologic conditions (1 source) Personal history of diseases of the blood and blood-forming organs and certain disorders involving the immune mechanism; Translations: [Personal history of diseases of the blood and blood-forming organs and certain disorders involving the immune mechanism] Onset: 03-16-2017 Episodic Results Test Name Value Interpretation Reference Range Facility Pulmonary Visit Reporton Pulmonary Visit Report [facility] [address] [place] [address] OFFICE VISIT Date of Service: 11/12/24 MR#: [id number] Acct: [id number] Name: MARIELENA LUTZ Rep #: [id number] : 1955 Provider: ADRIA Bazan Age/Sex: 69/F Location: [facility] Status: Signed Assessment and Plan Assessment and Plan (1) Sleep apnea: Status: Chronic Qualifiers: Sleep apnea type: obstructive Qualified Code(s): G47.33 - Obstructive sleep apnea (adult) (pediatric) Comment: AHI 30, CPAP 11 cmH2O Plan: She is using and benefiting from Pap therapy. No indication for titration study at this time. Contact the office for any new or worsening symptoms in the meantime. Follow-up in 1 year. (2) Obesity: Status: Chronic Qualifiers: Obesity type: due to excess calories Obesity classification: adult class 3 (BMI >= 40) Serious obesity comorbidity presence: with serious comorbidity Body mass index: BMI 40.0-44.9 Qualified Code(s): E66.01 - Morbid (severe) obesity due to excess calories; Z68.41 - Body mass index [BMI] 40.0-44.9, adult Plan: Complicates exam, plan, care and prognosis. Continue to encourage weight loss. Plan Details Additional Comments: This note was generated with [employer] software. It may contain incorrect words, spelling, and punctuation that were not noted in checking the note before signing. Follow Up: 1 Year HPI 1 Y FU Chief Complaint: Sleep apnea HPI Comments Details: This patient presents to the office today for follow-up of her obstructive sleep apnea. She is ambulatory and on room air. She has not recently been seen in the ED or urgent care for any respiratory illness. She has not required any antibiotics or prednisone for any breathing problems. If you recall, she is a lifelong never smoker. She denies any difficulty with shortness of breath. She denies any cough, sputum production or hemoptysis. She denies any wheezing, chest tightness, chest pain or palpitations. She has not had any fever, chills or body aches. She reports waking up feeling rested refreshed with the use of her Pap device. She denies any difficulty with nocturia. She is not requiring naps. She is not nodding off to sleep unintentionally. She denies dry mouth or morning headaches. Compliance report for the past 30 days shows 100% compliance with average use of 8 hours and 59 minutes per night. Current setting is CPAP 11 cmH2O with residual AHI 1.4 events per hour. Leaks do not appear to be problematic. 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 Teacher Required: No DME Vendor: [employer] Accompanied by: Self Allergies No Known Allergies Allergy (Verified 11/12/24 08:43) Medications ???Medication ???Instructions ???Recorded ???Confirmed ???Type aspirin 81 mg chewable tablet 81 mg PO DAILY@0800 01/20/1511/12 Rx Advanced Blood Pressure Formula PO 06/03/22 11/12/24 History Have you fallen in the past year?: No [facility] Medical History Acute otitis externa of left ear Morbid obesity Hypomagnesemia Diabetes mellitus type 2 in obese Left pontine CVA Sleep apnea Goiter, nontoxic simple Surgical History S/P partial hysterectomy Family History Other Diabetes Hypertension Social History Smoking Status: Never smoker alcohol intake: never Review of Systems Resp Respiratory: Yes as per HPI Exam Const Constitutional: Positive conversant, cooperative, in no acute respiratory distress, healthy appearing, well developed, well nourished, good hygiene and obese Head Head: Yes normocephalic, Yes atraumatic and No cyanosis of lips/distal nose Eyes Eye: Positive clear conjunctiva; Negative nystagmus Ears Ear: Positive hard of hearing and external ears normal Nose Nose: Yes external nose normal Mouth Mouth: Positive oral mucosae normal Neck Neck: Positive normal visual inspection, thick neck, full ROM and trachea midline Chest Wall Chest: Positive normal inspection of the chest and symmetric chest movement; Negative increased A/P diameter Resp lung sounds: Positive clear to auscultation, good air exchange, normal expiratory time and normal respira (more content not included)... Normal [facility] Urgent Care Visit Reporton 1 03-20-2023 Urgent Care Visit Report [facility] [address], [address] [place] [address] OFFICE VISIT Date of Service: 01/19/24 MR#: [id number] Acct: [id number] Name: MARIELENA LUTZ Rep #: [id number] : 1955 Provider: LASHAWN Venegas Age/Sex: 68/F Location: [facility] Status: Signed Intake Vital Signs 10/26/23 08:26 01/19/24 10:47 Height 5 ft 2 in 5 ft 2 in Weight: 234 lb BMI 42.7 BP 139/60 H 118/72 Blood Pressure Location Rt brachial Lt brachial Position Sitting Sitting Respiration 20 H 15 Pulse 77 62 Pulse Source Monitor NIBP Temp 97.2 F L 98.0 F Temp Source Oral Pulse Oximetry (%) 94 98 Oxygen Delivery Method room air room air Intake Visit Reasons: EAR PAIN Chief Complaint: Ear pain Preschool Substitute Teacher Required: No Is patient in pain?: No Allergies No Known Allergies Allergy (Verified 10/26/23 14:27) Is last menstrual period known: No Post menopausal: No Patient : No Have you fallen in the past year?: No Nurse's Note: pt is here due to ear pain and thinks double ear infection, is plugged up. [facility] Medical History (Updated 10/26/23 @ 15:40 by Marlene Bazan POSTAL MAIL CARRIER, POSTAL MAIL CARRIER-C) Acute otitis externa of left ear Morbid obesity Hypomagnesemia Diabetes mellitus type 2 in obese Left pontine CVA Sleep apnea Goiter, nontoxic simple Surgical History S/P partial hysterectomy Family History Other Diabetes Hypertension Social History Smoking Status: Never smoker alcohol intake: never HPI HPI Chief Complaint: Ear pain Details: MARIELENA LUTZ, is a 68 F who presents to the office today for complaint of bilateral ear pain. Patient feels like her ear is plugged. She states this started several days ago. Patient does wear hearing aids however has not been able to get a hearing aid into her right ear. No fever, chills, sweats. No other associated symptoms or alleviating/aggravating factors. ROS Const Constitutional: No other (As above) Exam Const General: cooperative and healthy appearing [facility] Head: normocephalic and atraumatic Ears: hearing grossly normal bilaterally and EAC abnormal erythema bilaterally, edema bilaterally and EAC tenderness bilaterally Nose: external nose normal Face and sinus: normal facial exam and face symmetric Mouth: oral mucosae normal Throat: posterior oropharynx normal Skin General: no rashes or lesions noted Neuro General: patient alert Psych Appearance: grossly normal Mental Status: mental status grossly normal Coding Level of Care Code Off vis,est,level 3 Diagnoses Bilateral otitis externa H60.93 Assessment and Plan Assessment and Plan (1) Bilateral otitis externa: Status: Acute Plan: Eardrops as prescribed today. Encouraged to get plenty of rest, drink lots of clear liquids, and use Tylenol or Ibuprofen (unless contraindicated) for comfort. Patient also educated on other symptomatic management techniques. To be seen in 7-10 days if no improvement; sooner if worsening of symptoms. Patient advised of potential red flags and when appropriate to report to the ED. Patient verbalized understanding and agreement with all the above. Medications: New hexmvvzt-agvhleqqw-JH 3.5-10,000-1 mg/mL-unit/mL-% apply to (cotton) wick; replace wick every 24 hours 3 drps otic (ear) Q4H 10 mL 0RF 10 days Clinical Quality Measures Falls Risk Screening/Assistive Devices Have you fallen in the past year?: No 01/19/24 1147 Date Costa Solis Signature: Date (if applicable) CC: Normal [facility] PROGRESSon 05-02-2017 PROGRESS HNO ID: [id number] thor: Lolis (Pt) Melodyervice: (none)Author Type: Physical TherapistType: Progress NotesFiled: 05/02/2017 6:17 PMNote Text:[facility]ER[facility]PHYSICAL THERAPY DISCONTINUANCE OF CAREPlan of Care Period:First Visit Date 11/22/2016Last Visit Date: 03/15/2016Therapy Program: Patient did not return for follow up care as planned.Please refer to last visit note for interventions provided for thisepisode of care.Assessment:Unable to formally assess goal achievement due to non-compliance withtherapy plan of care.Reason for Discontinuation of Care: Patient has not returned to therapy orscheduled additional follow-up appointments.Lolis Hood, PT [facility] CNOVon 03-24-2017 CNOV Office Visit (FAMPWS) -------MARIELENA LUTZ ([id number]) 1955 F CHTDate Time Provider Department03/24/17 9:40 AM Maxi ZAMUDIO) SARAH During your visit today, we recorded the following information about you: Temperature Pulse Respiration Blood pressure 99.4 degrees 64/minute 20/minute 132/74 Weight 111.6 kgM Romeo Zamudio PA-C 03/24/2017 11:00 AM Kjhbyd24 year old female with c/o cough excessive, frequent sputum, yellow green towhite. Wheezing intermittently. Hx bronchitis in past. No pneumonia. No hxasthma. Ears plugged/ full. A little drainage/ crusty yellow from right ear.Last week had ear ache: Dr. Gaming examined and told fluid behind ear. Told totalk Mucinex and Afrin: seemed to open head. Using Afrin twice a day for last 5days. Was seen previously by Dr. Sow 03/16/17 with 5 weeks of illness at thattime was started on doxycycline, one day remaining. Has seen ENT prior to thatand on levaquin for OM. Some seasonal allergy. Mild trouble hearing. Unable towear right hearing aide due to whistling.CXR 03/16/17 NAD.HISTORIESFAMILY HISTORYProblem Relation Age of Onset- Diabetes MotherPAST MEDICAL HISTORYDiagnosis Date- Anemia 2011 due to abnormal vaginal bleeding from fibroids. required transfusion- HLD (hyperlipidemia)- Hyperglycemia- MANI (obstructive sleep apnea)- Stroke (HCC)PAST SURGICAL HISTORYProcedure Laterality Date- INCISION EARDRUM,ASPIR,GEN ANESTH 1988 Myringotomy/tubes- VAGINAL HYSTERECTOMY 2011 Hysterectomy still has her ovaries done for irregualr bleedingSocial History Marital status: Spouse name: Years of education: Number of children:Social History Main Topics Smoking status: Never Smoker Smokeless status: Never UsedACTIVE PROBLEM LISTPrimary Osteoarthritis of Right KneeOsa (Obstructive Sleep Apnea)Stroke (Hcc)HyperglycemiaHld (Hyperlipidemia)Current Outpatient Prescriptions:multivitamin tablet Take 1 tablet by mouth once daily. Disp: Rfl:GLUC/CHND/OM3/DHA/EPA/F JOHANNA/STR (GLUCOSAMINE CHONDROITIN PLUS ORAL) Take bymouth. Disp: Rfl:doxycycline monohydrate (MONODOX) 100 mg capsule Take 1 capsule by mouth twicedaily. Disp: 20 capsule Rfl: 0aspirin, enteric coated (ASPIRIN, ENTERIC COATED) 81 mg EC tablet Take 81 mg bymouth once daily. Disp: Rfl:No current facility-administered medications for this visit.TETANUS due on 1967MAMMOGRAM due on 1996HEPATITIS C SCREENING due on 2000COLORECTAL CANCER SCREENING,SEE MODIFIER due on 2006EXAM:BP 132/74 Pulse 64 Temp 37.4 ?C (99.4 ?F) (Tympanic) Resp 20 Wt 111.6kg (246 lb) SpO2 95% BMI 48.04 kg/d5Pmywljmz obese adult woman in no acute distress. Alert and oriented allspheres. Normal affect and cognition. Speech normal. No deficits to learning orcomprehension.Skin warm, dry, pink to lips and nailbeds. Normal turgor.Respirations regular and unlabored. Harsh wheezing cough.HEENT WNL. Hearing aide left. TM's: right with white sclerosis, possible moistdebri, clear fluid in ear canal. Left bulging with opaque appearance to TM.Neither insufflate. Nose and oropharynx free from injection or lesion. Nocervical lymph nodes. Thyroid non-tender, no massesLungs: auscultated for diffuse expiratory wheezes scattered throughout bothlungs borjas. Cough easily triggered. No rales. No dullness.Extrem: no clubbing, cyanosis, edema. Extremities are warm and pink with promptcapillary refill.ASSESSMENT/PLAN:1. Acute bronchitis, unspecified organism - ICD9: 466.0, ICD10: J20.9 (primarydiagnosis)- PREDNISONE 10 MG TABLET- BENZONATATE 100 MG CAPSULE2. Bilateral chronic serous otitis media - ICD9: 381.10, ICD10: H65.23- PREDNISONE 10 MG TABLET3. Acute otitis externa of right ear, unspecified type - ICD9: 380.10, ICD10:H60.501- OFLOXACIN 0.3 % EAR DROPS- PREDNISONE 10 MG TABLETHas f/u with Dr. Romano. Discussed Afrin and rebound. Check ENT on stopping andweaning.M LUCIEN Kessler PA-C 03/24/2017 11:00 AM SignedGet plenty of rest.Force fluids daily with water and juices.Nasal saline spray may help to keep nose open and moist.Cool mist humidifier.May use OTC Tylenol or Ibuprofen as direct for discomfort.For sore throat, warm salt water gargles, Chlorseptic spray, lozenges or otherOTC sore throat remedies may help.Ear infections can cause fluid to accumulate in the middle ear. This may makeyour hearing muffled until the fluid reabsorbs. Sometimes this may take a fewweeks, If you have hearing problems that persist longer than a few weeks, callthe office to be rechecked.Acute BronchitisWhat is acute bronchitis?Acute bronchitis is an infection of the bronchial (say: ?fnqpa-php-euo?) tree.The bronchial tree is made up of the tubes that carry air into your lungs. Whenthese tubes get infected, they swell and mucus (thick fluid) forms inside them.This makes it hard for you to breathe. You may cough up mucus and wheeze (makea whistling sound when you breathe).What causes acute bronchitis?Acute bronchitis is almost always caused by viruses that attack the lining ofthe bronchial tree and cause infection. As your body fights back against theseviruses, more swelling occurs and more mucus is made. It takes time for yourbody to kill the viruses and heal the damage to your bronchial tubes.In most cases, the same viruses that cause colds cause acute bronchitis.Research has shown that bacterial infection is a much less common cause ofbronchitis than we used to think. Very rarely, an infection caused by a funguscan cause acute bronchitis.How do people get acute bronchitis?The viruses that cause acute bronchitis are sprayed into the air or ontopeople?s hands when they cough. You can get acute bronchitis if you breathe inthese viruses. You can also get it if you touch a hand that is coated with theviruses.If you smoke or are around damaging fumes (such as those in certain kinds offactories), you are more likely to get acute bronchitis and to have it longer.This is because your bronchial tree is already damaged.How is acute bronchitis treated?Most cases of acute bronchitis will go away on their own after a few days or aweek. It's a good idea to get plenty of rest, drink lots of noncaffeinatedfluids (for example, water and fruit juices) and increase the humidity in yourenvironment.Because acute bronchitis is usually caused by viruses, antibiotics (medicinesthat kill bacteria) usually do not help. Even if you cough up mucus that iscolored or thick, antibiotics probably won?t help you get better any faster.If you smoke, you should cut down on the number of cigarettes you smoke, orstop smoking altogether. This will help your bronchial tree heal faster.For some people with acute bronchitis, doctors prescribe medicines that areusually used to treat asthma. These medicines can help open the bronchial tubesand clear out mucus. They are usually given with an inhaler. An inhaler spraysthe medicine right into the bronchial tree. Your doctor will decide if thistreatment is right for you.How long will the cough from acute bronchitis last? You should call your doctor if:You continue to wheeze and cough for more than 2 weeks, especially at night orwhen you are active.You continue to cough for more than 2 weeks and sometimes have a bad-tastingfluid come up into your mouth.You have a cough, you feel very sick and weak, and you have a high fever thatdoesn?t go down.You cough up blood.You have trouble breathing when you lie down.Your feet swell.Sometimes the cough from acute bronchitis lasts for several weeks or months.Usually this happens because the bronchial tree is taking a long time to heal.However, a cough that doesn?t go away may be a sign of another problem, likeasthma or pneumonia.How can I keep from getting acute bronchitis again?One of the best ways to keep from getting acute bronchitis is to wash yourhands often to get rid of any viruses.If you smoke, the best defense against acute bronchitis is to quit. Smokingdamages your bronchial tree and makes it easier for viruses to cause infection.Smoking also slows down the healing, so it takes longer for you to get well.Reviewed/Updated: 03/05Created: 06/28This handout provides a general overview on this topic and may not apply toeveryone. To find out if this handout applies to you and to get moreinformation on this subject, talk to your family doctor.Copyright ? 2237-2597 [place] [employer] PhysiciansPermission is granted to print and photocopy this material for nonprofiteducational uses.Written permission is required for all other uses, including electronic uses.You must stop using Afrin (Oxymetolazine) nasal spray. This medication causesrebound congestion. Pick one nostril and use the spray only on that side forone week, allowing the other side to wean from themedication, then stop theAfrin altogether.If symptoms fail to improve in 5-7 days, fever ANDgt; 100.5F, general worsening,or other concerning symptoms, call the office: [phone], ext.[phone].Referring Provider: SELF [200]Allergies As of Date: 03/24/2017 Noted Allergy ReactionRAGWEED 11/15/2016 9 - ItchingSULFA (SULFONAMIDE ANTIBIOTICS) 11/15/2016 4 - HivesDate Reviewed: 03/24/2017Reviewed by: Twyla Norris LPN - Fully AssessedReason for Visit: Cough [28] Cmt: dry non-productive Blood Pressure [15] Cmt: check last visit BP was elevatedPrimary Visit Diagnosis:Acute bronchitis, unspecified organism [J20.9] Other Visit Diagnoses:Bilateral chronic serous otitis media [H65.23] Acute otitis externa of right ear, unspecified type [H60.501]Order(s):ofloxacin (FLOXIN) 0.3 % otic solutionUse 5 Drops in both ears once daily for 14 days.Disp: 4 mLRfl: 0 predniSONE (DELTASONE) 10 mg tabletTAKE BY MOUTH (4) TABS FOR (3) DAYS THEN (3) TABS FOR (3) DAYS THEN (2) TABS FOR (3) DAYS THEN (1) TAB FOR (3) DAYSDisp: 30 tabletRfl: 0 benzonatate (TESSALON PERLE) 100 mg capsuleTake 2 capsules by mouth three times daily as needed.Disp: 30 capsuleRfl: 1Prescriptions as of 03/24/2017 Sig: MULTIVITAMIN TABLET Take 1 tablet by mouth once d* GLUCOSAMINE CHONDROITIN PLUS * Take by mouth. DOXYCYCLINE MONOHYDRATE 100 M* Take 1 capsule by mouth twice* ASPIRIN 81 MG TABLET,DELAYED * Take 81 mg by mouth once laila* OFLOXACIN 0.3 % EAR DROPS Use 5 Drops in both ears once* PREDNISONE 10 MG TABLET TAKE BY MOUTH (4) TABS FOR (3* BENZONATATE 100 MG CAPSULE Take 2 capsules by mouth thre*Problem List As Of Date 03/24/2017 Noted Resolved Right leg pain [M79.604] INVALID FOR*03/16/2017 Primary osteoarthritis of right knee [M17.11] INVALID FOR* Pain in right knee [M25.561] INVALID FOR*03/16/2017 MANI (obstructive sleep apnea) [G47.33] INVALID FOR* More... Stroke (HCC) [I63.9] Hyperglycemia [R73.9] HLD (hyperlipidemia) [E78.5] Other instructions from your clinician: Get plenty of rest. Force fluids daily with water and juices. Nasal saline spray may help to keep nose open and moist. Cool mist humidifier. May use OTC Tylenol or Ibuprofen as direct for discomfort. For sore throat, warm salt water gargles, Chlorseptic spray, lozenges or other OTC sore throat remedies may help. Ear infections can cause fluid to accumulate in the middle ear. This may make your hearing muffled until the fluid reabsorbs. Sometimes this may take a few weeks, If you have hearing problems that persist longer than a few weeks, call the office to be rechecked. Acute Bronchitis What is acute bronchitis? Acute bronchitis is an infection of the bronchial (say: ?axauo-ssx-dpk?) tree. The bronchial tree is made up of the tubes that carry air into your lungs. When these tubes get infected, they swell and mucus (thick fluid) forms inside them. This makes it hard for you to breathe. You may cough up mucus and wheeze (make a whistling sound when you breathe). What causes acute bronchitis? Acute bronchitis is almost always caused by viruses that attack the lining of the bronchial tree and cause infection. As your body fights back against these viruses, more swelling occurs and more mucus is made. It takes time for your body to kill the viruses and heal the damage to your bronchial tubes. In most cases, the same viruses that cause colds cause acute bronchitis. Research has shown that bacterial infection is a much less common cause of bronchitis than we used to think. Very rarely, an infection caused by a fungus can cause acute bronchitis. How do people get acute bronchitis? The viruses that cause acute bronchitis are sprayed into the air or onto people?s hands when they cough. You can get acute bronchitis if you breathe in these viruses. You can also get it if you touch a hand that is coated with the viruses. If you smoke or are around damaging fumes (such as those in certain kinds of factories), you are more likely to get acute bronchitis and to have it longer. This is because your bronchial tree is already damaged. How is acute bronchitis treated? Most cases of acute bronchitis will go away on their own after a few days or a week. It's a good idea to get plenty of rest, drink lots of noncaffeinated fluids (for example, water and fruit juices) and increase the humidity in your environment. Because acute bronchitis is usually caused by viruses, antibiotics (medicines that kill bacteria) usually do not help. Even if you cough up mucus that is colored or thick, antibiotics probably won?t help you get better any faster. If you smoke, you should cut down on the number of cigarettes you smoke, or stop smoking altogether. This will help your bronchial tree heal faster. For some people with acute bronchitis, doctors prescribe medicines that are usually used to treat asthma. These medicines can help open the bronchial tubes and clear out mucus. They are usually given with an inhaler. An inhaler sprays the medicine right into the bronchial tree. Your doctor will decide if this treatment is right for you. How long will the cough from acute bronchitis last? You should call your doctor if: You continue to wheeze and cough for more than 2 weeks, especially at night or when you are active. You continue to cough for more than 2 weeks and sometimes have a bad-tasting fluid come up into your mouth. You have a cough, you feel very sick and weak, and you have a high fever that doesn?t go down. You cough up blood. You have trouble breathing when you lie down. Your feet swell. Sometimes the cough from acute bronchitis lasts for several weeks or months. Usually this happens because the bronchial tree is taking a long time to heal. However, a cough that doesn?t go away may be a sign of another problem, like asthma or pneumonia. How can I keep from getting acute bronchitis again? One of the best ways to keep from getting acute bronchitis is to wash your hands often to get rid of any viruses. If you smoke, the best defense against acute bronchitis is to quit. Smoking damages your bronchial tree and makes it easier for viruses to cause infection. Smoking also slows down the healing, so it takes longer for you to get well. Reviewed/Updated: 03/05 Created: 06/28 This handout provides a general overview on this topic and may not apply to everyone. To find out if this handout applies to you and to get more information on this subject, talk to your family doctor. Copyright ? 9824-2710 [employer] Permission is granted to print and photocopy this material for nonprofit educational uses. Written permission is required for all other uses, including electronic uses. You must stop using Afrin (Oxymetolazine) nasal spray. This medication causes rebound congestion. Pick one nostril and use the spray only on that side for one week, allowing the other side to wean from themedication, then stop the Afrin altogether. If symptoms fail to improve in 5-7 days, fever > 100.5F, general worsening, or other concerning symptoms, call the office: [phone], ext.[phone].Prescriptions ordered this encounter Disp Refills Start End OFLOXACIN 0.3 % EAR DROPS 4 mL 0 03/24/2017 04/07/2017 Route: BOTH EARS Sig: Use 5 Drops in both ears once daily for 14 days. PREDNISONE 10 MG TABLET 30 t* 0 03/24/2017 Sig: TAKE BY MOUTH (4) TABS FOR (3) DAYS THEN (3) TABS FOR (3) DAYS THEN (2) TABS FOR (3) DAYS THEN (1) TAB FOR (3) DAYS BENZONATATE 100 MG CAPSULE 30 c* 1 03/24/2017 Route: ORAL Sig: Take 2 capsules by mouth three times daily as needed. Status:Closed by Maxi ZAMUDIO PA-C on 03/24/17 [facility] PROGRESSon 03-24-2017 PROGRESS HNO ID: [id number] thor: Maxi Walters (Sharri) Wilbertoervice: (none)Author Type: Physician AssistantType: Progress NotesFiled: 03/24/2017 11:00 AMNote Text:61 year old female with c/o cough excessive, frequent sputum, yellow greento white. Wheezing intermittently. Hx bronchitis in past. No pneumonia. Nohx asthma. Ears plugged/ full. A little drainage/ crusty yellow from rightear. Last week had ear ache: Dr. Gaming examined and told fluid behindear. Told to talk Mucinex and Afrin: seemed to open head. Using Afrintwice a day for last 5 days. Was seen previously by Dr. Sow 03/16/17 with5 weeks of illness at that time was started on doxycycline, one dayremaining. Has seen ENT prior to that and on levaquin for OM. Someseasonal allergy. Mild trouble hearing. Unable to wear right hearing aidedue to whistling.CXR 03/16/17 NAD.HISTORIESFAMILY HISTORYProblem Relation Age of Onset- Diabetes MotherPAST MEDICAL HISTORYDiagnosis Date- Anemia 2011 due to abnormal vaginal bleeding from fibroids. required transfusion- HLD (hyperlipidemia)- Hyperglycemia- MANI (obstructive sleep apnea)- Stroke (HCC)PAST SURGICAL HISTORYProcedure Laterality Date- INCISION EARDRUM,ASPIR,GEN ANESTH 1988 Myringotomy/tubes- VAGINAL HYSTERECTOMY 2011 Hysterectomy still has her ovaries done for irregualr bleedingSocial History Marital status: Spouse name: Years of education: Number of children:Social History Main Topics Smoking status: Never Smoker Smokeless status: Never UsedACTIVE PROBLEM LISTPrimary Osteoarthritis of Right KneeOsa (Obstructive Sleep Apnea)Stroke (Hcc)HyperglycemiaHld (Hyperlipidemia)Current Outpatient Prescriptions:multivitamin tablet Take 1 tablet by mouth once daily. Disp: Rfl:GLUC/CHND/OM3/DHA/EPA/F JOHANNA/STR (GLUCOSAMINE CHONDROITIN PLUS ORAL) Take bymouth. Disp: Rfl:doxycycline monohydrate (MONODOX) 100 mg capsule Take 1 capsule by mouthtwice daily. Disp: 20 capsule Rfl: 0aspirin, enteric coated (ASPIRIN, ENTERIC COATED) 81 mg EC tablet Take 81mg by mouth once daily. Disp: Rfl:No current facility-administered medications for this visit.TETANUS due on 1967MAMMOGRAM due on 1996HEPATITIS C SCREENING due on 2000COLORECTAL CANCER SCREENING,SEE MODIFIER due on 2006EXAM:BP 132/74 Pulse 64 Temp 37.4 ?C (99.4 ?F) (Tympanic) Resp 20 Wt111.6 kg (246 lb) SpO2 95% BMI 48.04 kg/x5Ivrooaah obese adult woman in no acute distress. Alert and oriented allspheres. Normal affect and cognition. Speech normal. No deficits tolearning or comprehension.Skin warm, dry, pink to lips and nailbeds. Normal turgor.Respirations regular and unlabored. Harsh wheezing cough.HEENT WNL. Hearing aide left. TM's: right with white sclerosis, possiblemoist debri, clear fluid in ear canal. Left bulging with opaque appearanceto TM. Neither insufflate. Nose and oropharynx free from injection orlesion. No cervical lymph nodes. Thyroid non-tender, no massesLungs: auscultated for diffuse expiratory wheezes scattered throughoutboth lungs borjas. Cough easily triggered. No rales. No dullness.Extrem: no clubbing, cyanosis, edema. Extremities are warm and pink withprompt capillary refill.ASSESSMENT/PLAN:1. Acute bronchitis, unspecified organism - ICD9: 466.0, ICD10: J20.9(primary diagnosis)- PREDNISONE 10 MG TABLET- BENZONATATE 100 MG CAPSULE2. Bilateral chronic serous otitis media - ICD9: 381.10, ICD10: H65.23- PREDNISONE 10 MG TABLET3. Acute otitis externa of right ear, unspecified type - ICD9: 380.10,ICD10: H60.501- OFLOXACIN 0.3 % EAR DROPS- PREDNISONE 10 MG TABLETHas f/u with Dr. Romano. Discussed Afrin and rebound. Check ENT onstopping and weaning.M Romeo Zamudio PA-C [facility] CBC and Differentialon 03-16 Abs Baso 0.07 k/uL Normal <0.11 [facility] Comment on above: Performed By: #### C BCDIF, CMP, LIPB, HBA1C ####[facility] [address] [place], [place] [phone] Abs [place] 0.41 k/uL Normal <0.87 [facility] Comment on above: Performed By: #### C BCDIF, CMP, LIPB, HBA1C ####[facility] [address] [place], [place] [phone] Abs Neut 4.36 k/uL Normal 1.45-7.50 [facility] Comment on above: Performed By: #### C BCDIF, CMP, LIPB, HBA1C ####[place] [address] [address] [place], [place] [phone] Basophils/100 WBC Auto (Bld) 0.9 % [facility] Comment on above: Performed By: #### C BCDIF, CMP, LIPB, HBA1C ####[place] [address] [address] [place] [phone] DTYPE Auto Diff [facility] Comment on above: Performed By: #### C BCDIF, CMP, LIPB, HBA1C ####[place] [address] [address] [place] [phone] Eosinophils 0.46 10*3/uL High <0.46 [facility] Comment on above: Performed By: #### C BCDIF, CMP, LIPB, HBA1C ####[place] [address] [address] [place] [phone] Eosinophils/100 leukocytes 6.1 % [facility] Comment on above: Performed By: #### C BCDIF, CMP, LIPB, HBA1C ####[place] [address] [address] [place] [phone] Erythrocyte distribution width Auto Ratio (RBC) 16.8 % High 11.5-15.0 [facility] Comment on above: Performed By: #### C BCDIF, CMP, LIPB, HBA1C ####[place] [address] [address] [place] [phone] Erythrocytes (RBC) 5.21 10*6/uL High 3.90-5.20 [facility] Comment on above: Performed By: #### C BCDIF, CMP, LIPB, HBA1C ####[place] [address] [address] [place] [phone] Erythrocytes (RBC) 10*6/uL Normal <0.01 [facility] Comment on above: Performed By: #### C BCDIF, CMP, LIPB, HBA1C ####[place] [address] [address] [place] [phone] Erythrocytes (RBC) 0.0 /100 WBC Normal 0 [facility] Comment on above: Performed By: #### C BCDIF, CMP, LIPB, HBA1C ####[place] [address] [address] [place] [phone] Hematocrit (HCT) 43.6 % Normal 36.0-46.0 [facility] Comment on above: Performed By: #### C BCDIF, CMP, LIPB, HBA1C ####[place] [address] [address] [place] [phone] Hemoglobin mass conc (Bld) 13.1 g/dL Normal 11.5-15.5 [facility] Comment on above: Performed By: #### C BCDIF, CMP, LIPB, HBA1C ####[address] [phone] Lymphocytes 2.20 10*3/uL Normal 1.00-4.00 [facility] Comment on above: Performed By: #### C BCDIF, CMP, LIPB, HBA1C ####[place] [address] [address] [place] [phone] Lymphocytes/100 leukocytes 29.3 % [facility] Comment on above: Performed By: #### C BCDIF, CMP, LIPB, HBA1C ####[place] [address] [address] [place] [phone] MCH 25.1 pG Low 26.0-34.0 [facility] Comment on above: Performed By: #### C BCDIF, CMP, LIPB, HBA1C ####[place] [address] [address] [place] [phone] MCHC mass conc (RBC) 30.0 g/dL Low 30.5-36.0 [facility] Comment on above: Performed By: #### C BCDIF, CMP, LIPB, HBA1C ####[facility] [place], [place] [phone] MCV 83.7 fL Normal 80.0-100.0 [facility] Comment on above: Performed By: #### C BCDIF, CMP, LIPB, HBA1C ####[place] [address] [address] [place], [place] [phone] Monocytes/100 leukocytes 5.5 % [facility] Comment on above: Performed By: #### C BCDIF, CMP, LIPB, HBA1C ####[place] [address] [address] [place], [place] [phone] Neutrophils/100 WBC Auto (Bld) 58.2 % [facility] Comment on above: Performed By: #### C BCDIF, CMP, LIPB, HBA1C ####[place] [address] [address] [place], [place] [phone] Platelet mean volume (PMV) 11.1 fL Normal 9.0-12.7 [facility] Comment on above: Performed By: #### C BCDIF, CMP, LIPB, HBA1C ####[place] [address] [address] [place], [place] [phone] Platelets 209 10*3/uL Normal 150-400 [facility] Comment on above: Performed By: #### C BCDIF, CMP, LIPB, HBA1C ####[facility] [place], [place] [phone] WBC (Leukocytes) 7.50 10*3/uL Normal 3.70-11.00 [facility] Comment on above: Performed By: #### C BCDIF, CMP, LIPB, HBA1C ####[facility] [place], [place] [phone] CNCOon 03-16-2017 Erythrocyte distribution width Auto Ratio (RBC) Letter Mireya Sow MD [facility] [address] [place] [address] Clinic #: [id number]/17/2018Dear Ms. Lutz, I have received the results of your recent tests.The results of your X-Ray tests were either normal or within the acceptablerange.We can discuss this at your next visit.Please do not hesitate to contact me with any questions.Sincerely,Jacque Sow MD [facility] Departmentelectronically signed to expedite mailing [facility] CNOVon 03-16-2017 CNOV Office Visit (FAMPWS) -------MARIELENA LUTZ ([id number]) 1955 F [facility] Time Provider Department03/16/17 12:20 PM [facility] During your visit today, we recorded the following information about you: Temperature Pulse Respiration Blood pressure 99.1 degrees 60/minute 16/minute 152/84 Weight Height 111.6 kg 1.524 Meg Eli LPN 03/16/2017 12:52 PM SignedCurrently seeing [facility] for right knee pain and in PT for it now. Dueto history of stroke Dr Shields at ortho feels high surgical risk. Patient isworking on getting weight down to hopefully have surgery done for possible kneereplacement. Did have weight down prior to her fall in June that caused her kneepain and wasn't able to exercise like she was.Sees [facility] yearly. Seen there 03/02/17 and given Levaquin 500 mg for 10days for right ear infection. Right ear is no better and now feels that leftmay be infected too.History of stroke that was caused by untreated sleep apnea. Now uses bipapmachine with oxygen for sleep.Jacque Sow MD 03/16/2017 1:36 PM SignedPatient presents with:Establish Care: previous Dr Haider Esquivel: Patient presents today for office visit for Getting established/physical.URI: has had a cold for five weeks.Saw ent for ear ache and placed on levaquin.Coughing and congestion.No fever.No shortness of breath.No sore throat.Noted drainage from her right ear a few days ago.Has hearing aidsKnee: has been doing physical therapy. Is doing better. Wears a brace prn.Had seen urgent care here and [facility].NEURO: had a cva two years ago. Had weakness on right side. Did therapy andaccupuncture. Placed on asa.She was on metformin and lipitor in the past. They were stopped by neuro.Has not had any labs done since April.Sugars have been stable.Still has occasional mild memory loss. Has some minimal weakness.Working on weight and diet.MEDICATIONS:Current Outpatient Prescriptions:multivitamin tablet Take 1 tablet by mouth once daily.GLUC/CHND/OM3/DHA/EPA /FISH/STR (GLUCOSAMINE CHONDROITIN PLUS ORAL) Take bymouth.aspirin, enteric coated (ASPIRIN, ENTERIC COATED) 81 mg EC tablet Take 81 mg bymouth once daily.No current facility-administered medications for this visit.ALLERGIES:ALLERGIESAl lergen Reactions- Ragweed Itching- Sulfa (Sulfonamide * HivesPAST MEDICAL HISTORYDiagnosis Date- HLD (hyperlipidemia)- Hyperglycemia- MANI (obstructive sleep apnea)- Stroke (HCC)PAST SURGICAL HISTORYProcedure Laterality Date- INCISION EARDRUM,ASPIR,GEN ANESTH 1988 Myringotomy/tubes- VAGINAL HYSTERECTOMY 2011 Hysterectomy still has her ovaries done for irregualr bleeding No family history on file. Social History Marital status: Spouse name: Years of education: Number of children:Social History Main Topics Smoking status: Never Smoker Smokeless status: Never UsedReviewed current medications, allergies, past medical history, surgicalhistory, family history and social history today.REVIEW OF SYSTEMSPAIN ASSESSMENT: CURRENTLY HAVING PAIN; Knee. Using glucosamine.GENERAL: No weight loss, malaise or feversCARDIOVASCULAR: Negative for chest pain, leg swelling, hypertension, CHF orpalpitationsGI: No nausea, vomiting, or diarrheaGU: No history of dysuria, frequency or incontinenceGYN: Negative for abnormal vaginal bleeding, abnormal vaginal dischargeSKIN: Negative for lesions, rash, and itchingAll other reviewed and negative other than HPI.HEALTH MAINTENANCE:Reviewed health maintenance issues today and recommended the following indetail.MAMMOGRAM-had thermo imaging in 2012 or 14. Was done in [place]. RecommendedHEPATITIS C SCREENING due on 2000LIPID SCREEN due on 2001DIABETES SCREEN due on 2001COLORECTAL CANCER SCREENING,SEE MODIFIER-recommended. Willing to do ifobt.VITALS:BP 152/84 Pulse 60 Temp 37.3 ?C (99.1 ?F) (Tympanic) Resp 16 Ht 152.4cm (5') Wt 111.6 kg (246 lb) BMI 48.04 kg/m2Last 4 Encounter Wt Readings: Date: Wt: 03/16/2017 111.6 kg (246 lb) 11/15/2016 113.9 kg (251 lb 3.2 oz)PHYSICAL EXAMINATION:General appearance: Well appearing, alert, in no acute distress, well-hydrated,well nourished.Skin: Skin color, texture, turgor normal, no suspicious rashes or lesionsHead: Normocephalic, no masses, lesions, tenderness or abnormalitiesEyes: Anicteric sclera. Pupils are equally round and reactive to light.Extraocular movements are intact.Ears: left tm is clear. Right obscured by pus. I suspicion it is perforated OMNose/Sinuses: Nares normal, septum midline, mucosa normal, no drainage or sinustendernessOropharynx: Lips, mucosa, and tongue normal, teeth and gums normal, oropharynxnormalNeck: Supple, no adenopathy; thyroid symmetric, normal size, no bruitsLungs: Lungs clear to auscultation. No wheezing, rhonchi, ralesHeart: RRR without murmur, gallop, or rubs. No ectopyAbdomen: Normal abdominal exam, Abdomen soft, non-tender. Bowel sounds normal.No masses, organomegalyExtremities: No deformities, edema, skin discoloration, clubbing or cyanosis.Good capillary refill.ASSESSMENT/PLAN:1. Routine physical examination - ICD9: V70.0, ICD10: Z00.00 (primary diagnosis)- Follow up for annual exam in one year.- Continue to work on diet.2. MANI (obstructive sleep apnea) - ICD9: 327.23, ICD10: G47.33- continue treatment.3. Cerebrovascular accident (CVA), unspecified mechanism (HCC) - ICD9: 434.91,ICD10: I63.9- check labs. Continue asa a day.4. Hyperglycemia - ICD9: 790.29, ICD10: R73.9- follow progress- HGB A1C5. Mixed hyperlipidemia - ICD9: 272.2, ICD10: E78.2- to be determined upon return of lab results- Encouraged following a low fat, low cholesterol diet.- COMP METABOLIC PANEL- LIPID PANEL BASIC6. Bilateral hearing loss, unspecified hearing loss type - ICD9: 389.9, ICD10:H91.93- wear hearing aides7. Acute otitis media, right - ICD9: 382.9, ICD10: H66.91- doxycycline. Recheck ears in two weeks.8. Bronchitis - ICD9: 490, ICD10: J40- Discussed risks and benefits of new medication with the patient. Advised themto call if any side effects or questions.- Call if symptoms worsen at all or if not better in one to two weeks- XR CHEST 2V FRONTAL/LAT- DOXYCYCLINE MONOHYDRATE 100 MG CAPSULE9. Screening for colon cancer - ICD9: V76.51, ICD10: Z12.11- FECAL OCCULT BLOOD TEST10. History of anemia - ICD9: V12.3, ICD10: Z86.2- CBC + DIFFReed Gibson MD 03/16/2017 1:28 PM SignedWe would like to thank you for choosing to have us care for your medical needs.We are constantly working to try and make your office experience a good one andhave developed new options for your medical care.We now offer OPEN ACCESS SCHEDULING in our office. Our office works a littledifferent because we have a medical team that works together that includes , Robbie Zamudio PA, and our nursing staff. Open access means that you canchoose to come in for routine visits or acute visits with our office five daysa week, without calling first or scheduling an appointment ahead of time. Thisallows you to be seen when you want to be seen by just stopping at the frontdesk on arrival. It also allows you to be taken care of by the same medicalteam each and every time you have an issue.This service is ONLY for patients of Dr. Sow and Robbie Zamudio and, usually, ourwait times are not different from our regular office visits. We also still alsohave scheduled office visits available for those who do not wish to be able towalk in to be seen.Open access hours are: Tuesday 8 am-6 pm Tuesday 8 am-4 pm Tuesday 8 am-4 pm 8 am-6 pm Tuesday 8 am-4 pmPlease remember that we are also available by phone at [phone]. You canalso contact our office directly by using the ANDquot;MESSAGE MY DOCTORANDquot; tabon your my chart for non emergent questions or issues.Referring Provider: SELF [200]Allergies As of Date: 03/16/2017 Noted Allergy ReactionRAGWEED 11/15/2016 9 - ItchingSULFA (SULFONAMIDE ANTIBIOTICS) 11/15/2016 4 - HivesDate Reviewed: 03/16/2017Reviewed by: Luzmaria Eli LPN - Fully AssessedRejacey for Visit: Establish Care [42] Cmt: previous Dr Haider Gaines For Visit History RecordedPrimary Visit Diagnosis:Routine physical examination [Z00.00] Other Visit Diagnoses:MANI (obstructive sleep apnea) [G47.33] Cerebrovascular accident (CVA), unspecified mechanism (HCC) [I63.9] Hyperglycemia [R73.9] Mixed hyperlipidemia [E78.2] Bilateral hearing loss, unspecified hearing loss type [H91.93] Acute otitis media, right [H66.91] Bronchitis [J40] Screening for colon cancer [Z12.11] History of anemia [Z86.2]Order(s):FECAL OCCULT BLOOD TEST [SQIFOBT] Order #: [id number] FUTURE XR CHEST 2V FRONTAL/LAT [3384006] Order #: [id number] FUTURE doxycycline monohydrate (MONODOX) 100 mg capsuleTake 1 capsule by mouth twice daily.Disp: 20 capsuleRfl: 0 CBC + DIFF [SQCBCDIF] Order #: [id number] FUTURE COMP METABOLIC PANEL [SQCMP] Order #: [id number] FUTURE LIPID PANEL BASIC [SQLIPB] Order #: [id number] FUTURE HGB A1C [KEIPO3F] Order #: [id number] FUTUREPrescriptions as of 03/16/2017 Sig: MULTIVITAMIN TABLET Take 1 tablet by mouth once d* GLUCOSAMINE CHONDROITIN PLUS * Take by mouth. ASPIRIN 81 MG TABLET,DELAYED * Take 81 mg by mouth once laila* DOXYCYCLINE MONOHYDRATE 100 M* Take 1 capsule by mouth twice*Problem List As Of Date 03/16/2017 Noted Resolved Right leg pain [M79.604] INVALID FOR*03/16/2017 Primary osteoarthritis of right knee [M17.11] INVALID FOR* Pain in right knee [M25.561] INVALID FOR*03/16/2017 MANI (obstructive sleep apnea) [G47.33] INVALID FOR* More... Stroke (HCC) [I63.9] Hyperglycemia [R73.9] HLD (hyperlipidemia) [E78.5] Other instructions from your clinician: We would like to thank you for choosing to have us care for your medical needs. We are constantly working to try and make your office experience a good one and have developed new options for your medical care. We now offer OPEN ACCESS SCHEDULING in our office. Our office works a little different because we have a medical team that works together that includes Dr. Sow, Robbie HARDIN, and our nursing staff. Open access means that you can choose to come in for routine visits or acute visits with our office five days a week, without calling first or scheduling an appointment ahead of time. This allows you to be seen when you want to be seen by just stopping at the front end alignment specialist on arrival. It also allows you to be taken care of by the same medical team each and every time you have an issue. This service is ONLY for patients of Dr. Sow and Robbie Zamudio and, usually, our wait times are not different from our regular office visits. We also still also have scheduled office visits available for those who do not wish to be able to walk in to be seen. Open access hours are: Tuesday 8 am-6 pm Tuesday 8 am-4 pm Tuesday 8 am-4 pm 8 am-6 pm Tuesday 8 am-4 pm Please remember that we are also available by phone at [phone]. You can also contact our office directly by using the "MESSAGE MY DOCTOR" tab on your my chart for non emergent questions or issues.Visit Notes:>> Luzmaria Eli LPN TueMar 16, 2017 12:33 PM Status: SignedCurrently seeing [facility] for right knee pain and in PT for it now.Due to history of stroke Dr Shields at ortho feels high surgical risk.Patient is working on getting weight down to hopefully have surgery donefor possible knee replacement. Did have weight down prior to her fall inMay that caused her knee pain and wasn't able to exercise like she was.Sees [facility] yearly. Seen there 03/02/17 and given Levaquin 500 mg for10 days for right ear infection. Right ear is no better and now feels thatleft may be infected too.History of stroke that was caused by untreated sleep apnea. Now uses bipapmachine with oxygen for sleep.Prescriptions ordered this encounter Disp Refills Start End DOXYCYCLINE MONOHYDRATE 100 MG CAPSU* 20 c* 0 03/16/2017 Route: ORAL Sig: Take 1 capsule by mouth twice daily.Medications Discontinued During This Encounter methylPREDNISolone (MEDROL, ISELA,) 4 * 1 Pa* 0 11/15/2016 03/16/2017 Sig: As Instructed per package Disc: Course of therapy completedDisposition: Return in about 2 weeks (around 03/30/2017).Follow-up and Disposition History RecordedEncounter Number: [id number] Status:Closed by JACQUE SOW MD on 03/16/17 [facility] Comp Metabolic Panelon 03-16 Alanine aminotransferase (ALT) 19 U/L Normal 7-38 [facility] Comment on above: Performed By: #### C BCDIF, CMP, LIPB, HBA1C ####[facility] [address] [place], [place] [phone] Albumin 4.1 g/dL Normal 3.9-4.9 [facility] Comment on above: Performed By: #### C BCDIF, CMP, LIPB, HBA1C ####[facility] [address] [place], [place] [phone] Alkaline phosphatase (ALP) 64 U/L Normal 32-117 [facility] Comment on above: Performed By: #### C BCDIF, CMP, LIPB, HBA1C ####[facility] [address] [place], [place] [phone] Anion gap 16 mmol/L Normal 9-18 [facility] Comment on above: Performed By: #### C BCDIF, CMP, LIPB, HBA1C ####[facility] [place] [phone] Aspartate aminotransferase (AST) 21 U/L Normal 13-35 [facility] Comment on above: Performed By: #### C BCDIF, CMP, LIPB, HBA1C ####[place] [phone] Bilirubin (total) 0.8 mg/dL Normal 0.2-1.3 [facility] Comment on above: Performed By: #### C BCDIF, CMP, LIPB, HBA1C ####[place] [address] [address] [place] [phone] Calcium 9.2 mg/dL Normal 8.5-10.2 [facility] Comment on above: Performed By: #### C BCDIF, CMP, LIPB, HBA1C ####[place] [address] [address] [place] [phone] Chloride 102 mmol/L Normal 97-105 [facility] Comment on above: Performed By: #### C BCDIF, CMP, LIPB, HBA1C ####[place] [address] [address] [place] [phone] CO2 23 mmol/L Normal 22-30 [facility] Comment on above: Performed By: #### C BCDIF, CMP, LIPB, HBA1C ####[place] [address]CD[address] [place] [phone] Creatinine 0.91 mg/dL Normal 0.58-0.96 [facility] Comment on above: Performed By: #### C BCDIF, CMP, LIPB, HBA1C ####[place] [address] [place] [phone] eGFR (non-black) mL/min/{1.73_m2} Normal [facility] Comment on above: Result Comment: eGFR (Estimated GFR) Units of measure: mL/min/1.73 meters squaredeGFR is derived from the reexpressed MDRD Study equation using the following parameters: serum creatinine, age, gender and race. The creatinine assay has been calibrated to be traceable to IDMS.An eGFR <60 mL/min/1.73m2 for >3 months is consistent with chronic kidney disease. Refer to KDOQI guidelines for clinical interpretation.In patients with unstable renal function, e.g. those with acute kidney injury, the eGFR may not accurately reflect actual GFR. Performed By: #### C BCDIF, CMP, LIPB, HBA1C ####[facility], [place] [phone] Glucose mass conc 96 mg/dL Normal 74-99 [facility] Comment on above: Result Comment: The [place] Diabetes Association (ADA) provides guidance for cutoff values for fasting glucose and random glucose. The ADA defines fasting as no caloric intake for at least 8 hours. Fasting plasma glucose results between 100 to 125 mg/dL indicate increased risk for diabetes (prediabetes).Fasting plasma glucose results greater than or equal to 126 mg/dL meet the criteria for diagnosis of diabetes. In the absence of unequivocal hyperglycemia, results should be confirmed by repeat testing. In a patient with classic symptoms of hyperglycemia or hyperglycemic crisis, random plasma glucose results greater than or equal to 200 mg/dL meet the criteria for diagnosis of diabetes.Reference: Standards of Medical Care in Diabetes 2016, [place] Diabetes Association. Diabetes Care. 2016.39(Suppl 1). Performed By: #### C BCDIF, CMP, LIPB, HBA1C ####[facility] [place], [place] [phone] Potassium molar conc 3.8 mmol/L Normal 3.7-5.1 [facility] Comment on above: Performed By: #### C BCDIF, CMP, LIPB, HBA1C ####[facility] [place], [place] [phone] Protein 7.1 g/dL Normal 6.3-8.0 [facility] Comment on above: Performed By: #### C BCDIF, CMP, LIPB, HBA1C ####[place] [address] [place], [place] [phone] Sodium 141 mmol/L Normal 136-144 [facility] Comment on above: Performed By: #### C BCDIF, CMP, LIPB, HBA1C ####[address] [phone] Urea nitrogen 17 mg/dL Normal 7-21 [facility] Comment on above: Performed By: #### C BCDIF, CMP, LIPB, HBA1C ####[address] [phone] Hemoglobin A1con 03-16-2017 Glucose mass conc 128 mg/dL Normal [facility] Comment on above: Result Comment: eAG: (Estimated average glucose) is a calculated value from HgbA1c and is retail account representative of the average blood glucose level in the last 2-3 month period. Performed By: #### C BCDIF, CMP, LIPB, HBA1C ####[address] [phone] Hemoglobin A1c/Hemoglobin.tota l mass fraction (Bld) 6.1 % High 4.3-5.6 [facility] Comment on above: Performed By: #### C BCDIF, CMP, LIPB, HBA1C ####[place] [id number] [place], [place] [phone] Lipid Panel, [place] 018 Cholesterol 152 mg/dL Normal <200 [facility] Comment on above: Result Comment: <200 mg/dL, Desirable 200-239 mg/dL, Borderline high>239 mg/dL, High Performed By: #### C BCDIF, CMP, LIPB, HBA1C ####[place] [address] [place], [place] [phone] Fasting Time 17 hrs Normal [facility] Comment on above: Performed By: #### C BCDIF, CMP, LIPB, HBA1C ####[facility] [address] [place], [place] [phone] HDL Cholesterol 35 mg/dL Low >39 [facility] Comment on above: Result Comment: 40-5 9 mg/dL, Acceptable>59 mg/dL, High: Negative risk factor for coronary heart disease<40 mg/dL, Low: Positive risk factor for coronary heart disease Performed By: #### C BCDIF, CMP, LIPB, HBA1C ####[facility], [place] [phone] LDL Cholesterol 95 mg/dL Normal <100 [facility] Comment on above: Result Comment: <100 mg/dL, Optimal 100-129 mg/dL, Near optimal/above optimal 130-159 mg/dL, Borderline high 160-189 mg/dL, High>189 mg/dL, Very highSecondary prevention optimal LDL Cholesterol levels are recommended to be < 70 mg/dL Performed By: #### C BCDIF, CMP, LIPB, HBA1C ####[address] [phone] LDL:HDL Ratio 2.71 High <2.54 [facility] Comment on above: Result Comment: [place] candi:1. National Cholesterol Education Program ATP III Guideline At-A-Glance Quick Desk Reference: National Heart, Lung, and Blood [place]. National Institutes of Health. 2001: NIH Publication No. 01-3305.2. An International Atherosclerosis Society position paper: global recommendations for the management of dyslipidemia: executive summary, Atherosclerosis. 2014: 232(2):410-413. Performed By: #### C BCDIF, CMP, LIPB, HBA1C ####[place] [address] [place], [place] [phone] Non HDL Cholesterol 117 mg/dL Normal <130 [facility] Comment on above: Result Comment: <130 mg/dL, Optimal 130-159 mg/dL, Near optimal/above optimal 160-189 mg/dL, Borderline high 190-219 mg/dL, High>219 mg/dL, Very highSecondary prevention optimal non HDL Cholesterol levels are recommended to be < 100 mg/dL Performed By: #### C BCDIF, CMP, LIPB, HBA1C ####[address] [phone] TC:HDL Ratio 4.34 Normal <5.10 [facility] Comment on above: Performed By: #### C BCDIF, CMP, LIPB, HBA1C ####[address] [phone] Triglyceride 109 mg/dL Normal <150 [facility] Comment on above: Result Comment: <150 mg/dL, Normal 150-199 mg/dL, Borderline high 200-499 mg/dL, High>499 mg/dL, Very high Performed By: #### C BCDIF, CMP, LIPB, HBA1C ####[place] [id number] [place], [place] [phone] VLDL Cholesterol 22 mg/dL Normal <30 [facility] Comment on above: Performed By: #### C BCDIF, CMP, LIPB, HBA1C ####[address] [phone] PROGRESSon 03-16-2017 PROGRESS HNO ID: [id number] thor: Chantelle Rodriguez () Mohan Billy: (none)Author Type: TechnicianType: Progress NotesFiled: 03/16/2017 1:54 PMNote Text: Radiology Service Progress NotePATIENT NAME: Marielena LutzMRN: [id number] OF SERVICE: March 16, 2017TIME: 1:42 PMPATIENT IDENTITY VERIFICATION COMPLETED USING TWO (2) METHODS: Patientconfirmed name verbally and Date of .PATIENT GENDER DATA: Female. status: : NoBreastfeeding status: NO.PATIENT RELEVANT IMPLANT DATA REVIEWED: Not ApplicableRADIOLOGY DEPARTMENT: General X-ray: Exam(s) Completed: Chest X-RayPERIPHERAL IV DATA: Not applicableSIGNED BY: RT CaliMarch 16, 2017 1:42 PM [facility] PROGRESS HNO ID: [id number] thor: Jacque Mcgee: (none)Author Type: PhysicianType: Progress NotesFiled: 03/16/2017 1:36 PMNote Text:Patient presents with:Establish Care: previous Dr Haider Esquivel: Patient presents today for office visit for Gettingestablished/physical .URI: has had a cold for five weeks.Saw ent for ear ache and placed on levaquin.Coughing and congestion.No fever.No shortness of breath.No sore throat.Noted drainage from her right ear a few days ago.Has hearing aidsKnee: has been doing physical therapy. Is doing better. Wears a brace prn.Had seen urgent care here and [facility].NEURO: had a cva two years ago. Had weakness on right side. Did therapyand accupuncture. Placed on asa.She was on metformin and lipitor in the past. They were stopped by neuro.Has not had any labs done since April.Sugars have been stable.Still has occasional mild memory loss. Has some minimal weakness.Working on weight and diet.MEDICATIONS:Current Outpatient Prescriptions:multivitamin tablet Take 1 tablet by mouth once daily.GLUC/CHND/OM3/DHA/EPA /FISH/STR (GLUCOSAMINE CHONDROITIN PLUS ORAL) Take bymouth.aspirin, enteric coated (ASPIRIN, ENTERIC COATED) 81 mg EC tablet Take 81mg by mouth once daily.No current facility-administered medications for this visit.ALLERGIES:ALLERGIESAl lergen Reactions- Ragweed Itching- Sulfa (Sulfonamide * HivesPAST MEDICAL HISTORYDiagnosis Date- HLD (hyperlipidemia)- Hyperglycemia- MANI (obstructive sleep apnea)- Stroke (HCC)PAST SURGICAL HISTORYProcedure Laterality Date- INCISION EARDRUM,ASPIR,GEN ANESTH 1988 Myringotomy/tubes- VAGINAL HYSTERECTOMY 2011 Hysterectomy still has her ovaries done for irregualr bleeding No family history on file. Social History Marital status: Spouse name: Years of education: Number of children:Social History Main Topics Smoking status: Never Smoker Smokeless status: Never UsedReviewed current medications, allergies, past medical history, surgicalhistory, family history and social history today.REVIEW OF SYSTEMSPAIN ASSESSMENT: CURRENTLY HAVING PAIN; Knee. Using glucosamine.GENERAL: No weight loss, malaise or feversCARDIOVASCULAR: Negative for chest pain, leg swelling, hypertension, CHFor palpitationsGI: No nausea, vomiting, or diarrheaGU: No history of dysuria, frequency or incontinenceGYN: Negative for abnormal vaginal bleeding, abnormal vaginal dischargeSKIN: Negative for lesions, rash, and itchingAll other reviewed and negative other than HPI.HEALTH MAINTENANCE:Reviewed health maintenance issues today and recommended the following indetail.MAMMOGRAM-had thermo imaging in 2012 or 14. Was done in [place].RecommendedHEPATIT IS C SCREENING due on 2000LIPID SCREEN due on 2001DIABETES SCREEN due on 2001COLORECTAL CANCER SCREENING,SEE MODIFIER-recommended. Willing to do ifobt.VITALS:BP 152/84 Pulse 60 Temp 37.3 ?C (99.1 ?F) (Tympanic) Resp 16 Ht152.4 cm (5') Wt 111.6 kg (246 lb) BMI 48.04 kg/m2Last 4 Encounter Wt Readings: Date: Wt: 03/16/2017 111.6 kg (246 lb) 11/15/2016 113.9 kg (251 lb 3.2 oz)PHYSICAL EXAMINATION:General appearance: Well appearing, alert, in no acute distress,well-hydrated, well nourished.Skin: Skin color, texture, turgor normal, no suspicious rashes or lesionsHead: Normocephalic, no masses, lesions, tenderness or abnormalitiesEyes: Anicteric sclera. Pupils are equally round and reactive to light.Extraocular movements are intact.Ears: left tm is clear. Right obscured by pus. I suspicion it isperforated OMNose/Sinuses: Nares normal, septum midline, mucosa normal, no drainage orsinus tendernessOropharynx: Lips, mucosa, and tongue normal, teeth and gums normal,oropharynx normalNeck: Supple, no adenopathy; thyroid symmetric, normal size, no bruitsLungs: Lungs clear to auscultation. No wheezing, rhonchi, ralesHeart: RRR without murmur, gallop, or rubs. No ectopyAbdomen: Normal abdominal exam, Abdomen soft, non-tender. Bowel soundsnormal. No masses, organomegalyExtremities: No deformities, edema, skin discoloration, clubbing orcyanosis. Good capillary refill.ASSESSMENT/PLAN:1. Routine physical examination - ICD9: V70.0, ICD10: Z00.00 (primarydiagnosis)- Follow up for annual exam in one year.- Continue to work on diet.2. MANI (obstructive sleep apnea) - ICD9: 327.23, ICD10: G47.33- continue treatment.3. Cerebrovascular accident (CVA), unspecified mechanism (HCC) - ICD9:434.91, ICD10: I63.9- check labs. Continue asa a day.4. Hyperglycemia - ICD9: 790.29, ICD10: R73.9- follow progress- HGB A1C5. Mixed hyperlipidemia - ICD9: 272.2, ICD10: E78.2- to be determined upon return of lab results- Encouraged following a low fat, low cholesterol diet.- COMP METABOLIC PANEL- LIPID PANEL BASIC6. Bilateral hearing loss, unspecified hearing loss type - ICD9: 389.9,ICD10: H91.93- wear hearing aides7. Acute otitis media, right - ICD9: 382.9, ICD10: H66.91- doxycycline. Recheck ears in two weeks.8. Bronchitis - ICD9: 490, ICD10: J40- Discussed risks and benefits of new medication with the patient. Advisedthem to call if any side effects or questions.- Call if symptoms worsen at all or if not better in one to two weeks- XR CHEST 2V FRONTAL/LAT- DOXYCYCLINE MONOHYDRATE 100 MG CAPSULE9. Screening for colon cancer - ICD9: V76.51, ICD10: Z12.11- FECAL OCCULT BLOOD TEST10. History of anemia - ICD9: V12.3, ICD10: Z86.2- CBC + DIFFWilliam Inna Sow MD [facility] XR CHEST 2V FRONTAL/LATon XR CHEST 2V FRONTAL/LAT * * *Final Report* * *DATE OF EXAM: Mar 16 2017 2:01PM WOX [id number] - XR CHEST 2V FRONTAL/LAT / REASON: Bronchitis, not specified as acute or chronic * * * * Physician Interpretation * * * * XR CHEST 2V FRONTAL/LATINDICATION: Bronchitis, not specified as acute or chronic /61 years/FemaleRESULT:The heart size is normal. The lung borjas are clear of infiltrate. No mediastinal or hilar adenopathy. The costophrenic angles are clear. The bony structures are intact.IMPRESSION:no active cardiopulmonary disease/Hand Filer Balance Wheel: CHARLEEN Transcribe Date/Time: Mar 16 2017 2:17PDictated by : AMADO VELIZ MDThis examination was interpreted and the report reviewed and electronically signed by: AMADO VELIZ MD on Mar 16 2017 2:18PM [id number] [facility] CNTHERAPYon 03-15-2017 CNTHERAPY OT/PT/Speech Visit (PTWS) -----MARIELENA LUTZ ([id number]) 1955 F CHTDate Time Provider Department03/15/17 7:30 AM LOLIS HOOD (PT) PTWSEncounter Number: [id number] Time Provider Department [place]03/15/2017 7:30 AM [id number], LISA (PT) PTWS [facility]: Physical Therapy [503] PT Discharge [752]Reason For Visit History RecordedPrimary Visit Diagnosis:Primary osteoarthritis of right knee [M17.11] Other Visit Diagnosis:Chronic pain of right knee [M25.561, G89.29]Allergies As of Date: 03/15/2017 Noted Allergy ReactionRAGWEED 11/15/2016 9 - ItchingSULFA (SULFONAMIDE ANTIBIOTICS) 11/15/2016 4 - HivesDate Reviewed: 11/15/2016Reviewed by: Gregory Anton (Retail Grocer) SUMIT Luna - Fully AssessedPrescriptions as of 03/15/2017 Sig: ASPIRIN 81 MG TABLET,DELAYED * Take 81 mg by mouth once laila*X METHYLPREDNISOLONE 4 MG TABLE* As Instructed per packageProgress Notes:Lolis Hood, PT 03/15/2017 11:35 AM SignedEpisode Visit Count: 11Therapist That Will Oversee The Plan Of Care: Lolis HoodREHABILITATION AND SPORTS THERAPYPHYSICAL THERAPY TREATMENT NOTEASSESSMENT: Marielena Lutz demonstrated improvements in knee pain andtolerance to exs. Able to increase reps of leg lifts and resistance withhamstring curls and TKE. The patient will continue to benefit from continuedskilled physical therapy for progression of exs for strengtheningPLAN FOR NEXT VISIT: Increase reps of leg press as able. Plan of care updateSUBJECTIVE: Pt notes that her knee is settled down from stepping into truck.Back to orthopedist and states that she is to continue. PT and exercise andreturn as neededPain Score: 04/09Pain Location: Knee - RightDescription: AchingFrequency: ContinuousPost Treatment Pain Score: 05/07Post Treatment Pain Description: AchingOBJECTIVE MEASURES WITH LEVEL OF FUNCTION:Pt ambulates with no gait deviation todayTREATMENT:Therapeutic Exercise:1: purple rep band hamstring curls right 2x102: purple rep band TKE 2x103: leg press 40# bilateral 2x104: quad set with 1/2 bolster under knee 2x105: scifit stepper seat 12 for 7 min 15 sec6: SLR 1# 2x127: standing hip abduction 1# [id number] Intervention: Patient was educated in proper exercise technique andpurpose for exercises.Skilled judgment was provided in selection of appropriate interventions.Correct performance of therapeutic exercises was facilitated with verbal andvisual cuing.Billing:[facility]: Therapeutic Exercise ([id number]): 1:1 time: 40 minutes (3 units:38-52 mins)Total time: 40 minutesDarcy Gregory PT 05/02/2017 6:17 PM Signed[facility] THERAPYPHYSICAL THERAPY DISCONTINUANCE OF CAREPlan of Care Period:First Visit Date 11/22/2016Last Visit Date: 03/15/2016Therapy Program: Patient did not return for follow up care as planned. Pleaserefer to last visit note for interventions provided for this episode of care.Assessment:Unable to formally assess goal achievement due to non-compliance with therapyplan of care.Reason for Discontinuation of Care: Patient has not returned to therapy orscheduled additional follow-up appointments.Lolis Hood PT - [facility] PROGRESSon 03-15-2017 PROGRESS HNO ID: [id number] thor: Lolis (Pt) NavjotonService: (none)Author Type: Physical TherapistType: Progress NotesFiled: 03/15/2017 11:35 AMNote Text:Episode Visit Count: 11Therapist That Will Oversee The Plan Of Care: Lolis HoodREHABILITATION AND SPORTS THERAPYPHYSICAL THERAPY TREATMENT NOTEASSESSMENT: Marielena Lutz demonstrated improvements in knee pain andtolerance to exs. Able to increase reps of leg lifts and resistance withhamstring curls and TKE. The patient will continue to benefit fromcontinued skilled physical therapy for progression of exs forstrengtheningPLAN FOR NEXT VISIT: Increase reps of leg press as able. Plan of care updateSUBJECTIVE: Pt notes that her knee is settled down from stepping intotruck. Back to orthopedist and states that she is to continue. PT andexercise and return as neededPain Score: 2/10Pain Location: Knee - RightDescription: AchingFrequency: ContinuousPost Treatment Pain Score: 3/10Post Treatment Pain Description: AchingOBJECTIVE MEASURES WITH LEVEL OF FUNCTION:Pt ambulates with no gait deviation todayTREATMENT:Therapeutic Exercise:1: purple rep band hamstring curls right 2x102: purple rep band TKE 2x103: leg press 40# bilateral 2x104: quad set with 1/2 bolster under knee 2x105: scifit stepper seat 12 for 7 min 15 sec6: SLR 1# 2x127: standing hip abduction 1# [id number] Intervention: Patient was educated in proper exercise techniqueand purpose for exercises.Skilled judgment was provided in selection of appropriate interventions.Correct performance of therapeutic exercises was facilitated with verbaland visual cuing.Billing:[facility]: Therapeutic Exercise (37343): 1:1 time: 40 minutes (3units: 38-52 mins)Total time: 40 minutesLiLUIS ANTONIO [facility] CNTHERAPYon 03-04-2017 CNTHERAPY OT/PT/Speech Visit (PTWS) -----MARIELENA LUTZ ([id number]) 1955 F CHTDate Time Provider Department03/04/17 7:00 AM LOLIS HOOD (PT) PTWSEncounter Number: [id number] Time Provider Department [place]03/04/2017 7:00 AM [id number], LISA (PT) [facility] for Visit: Physical Therapy [503]Primary Visit Diagnosis:Primary osteoarthritis of right knee [M17.11] Other Visit Diagnosis:Chronic pain of right knee [M25.561, G89.29]Allergies As of Date: 03/04/2017 Noted Allergy ReactionRAGWEED 11/15/2016 9 - ItchingSULFA (SULFONAMIDE ANTIBIOTICS) 11/15/2016 4 - HivesDate Reviewed: 11/15/2016Reviewed by: Gregory Anton ([employer]ail [employer]) SUMIT Luna - Fully AssessedPrescriptions as of 03/04/2017 Sig: ASPIRIN 81 MG TABLET,DELAYED * Take 81 mg by mouth once laila* METHYLPREDNISOLONE 4 MG TABLE* As Instructed per packageProgress Notes:Lolis Hood PT 03/04/2017 7:43 AM SignedEpisode Visit Count: 10Therapist That Will Oversee The Plan Of Care: Lolis HoodPatient Identified by Name and Date of : YesREHABILITATION AND SPORTS THERAPYPHYSICAL THERAPY TREATMENT NOTEASSESSMENT: Marielena Lutz demonstrated increased pain in knee from steppingup into high truck but was able to tolerate exs better with some increased timeon scifit, decreased pain with extension and Pt remarked that leg press andscifit " felt good" The patient will continue to benefit from continuedskilled physical therapy for advancement of strengthening exsPLAN FOR NEXT VISIT:Continue to advance reps of exs as ableSUBJECTIVE: Pt notes that she is doing exs and her leg gets tired and sorePain Score: 5/10Pain Location: Knee - RightDescription: AchingFrequency: ContinuousPost Treatment Pain Score: 3/10Post Treatment Pain Description: AchingOBJECTIVE MEASURES WITH LEVEL OF FUNCTION: Pt ambulates with no gait deviation todayTREATMENT:Therapeutic Exercise:1: blue rep band hamstring curls right 2x102: blue rep band TKE 2x123: leg press 40# bilateral 2x104: quad set with 1/2 bolster under knee 2x105: scifit stepper seat 12 for 7 min 30 sec6: SLR 1# 2x107: standing hip abduction 1# [id number] Intervention: Patient was educated in proper exercise technique andpurpose for exercises.Skilled judgment was provided in selection of appropriate interventions.Correct performance of therapeutic exercises was facilitated with verbal andvisual cuing.Billing:[facility]: Therapeutic Exercise (44227): 1:1 time: 40 minutes (3 units:38-52 mins)Total time: 40 minutesLolis Hood PT - [facility] PROGRESSon 03-04-2017 PROGRESS HNO ID: [id number] thor: Lolis (Pt) NavjotonService: (none)Author Type: Physical TherapistType: Progress NotesFiled: 03/04/2017 7:43 AMNote Text:Episode Visit Count: 10Therapist That Will Oversee The Plan Of Care: Lolis HoodPatient Identified by Name and Date of : YesREHABILITATION AND SPORTS THERAPYPHYSICAL THERAPY TREATMENT NOTEASSESSMENT: Marielena Lutz demonstrated increased pain in knee fromstepping up into high truck but was able to tolerate exs better with someincreased time on scifit, decreased pain with extension and Pt remarkedthat leg press and scifit " felt good" The patient will continue tobenefit from continued skilled physical therapy for advancement ofstrengthening exsPLAN FOR NEXT VISIT:Continue to advance reps of exs as ableSUBJECTIVE: Pt notes that she is doing exs and her leg gets tired and sorePain Score: 5/10Pain Location: Knee - RightDescription: AchingFrequency: ContinuousPost Treatment Pain Score: 3/10Post Treatment Pain Description: AchingOBJECTIVE MEASURES WITH LEVEL OF FUNCTION: Pt ambulates with no gait deviation todayTREATMENT:Therapeutic Exercise:1: blue rep band hamstring curls right 2x102: blue rep band TKE 2x123: leg press 40# bilateral 2x104: quad set with 1/2 bolster under knee 2x105: scifit stepper seat 12 for 7 min 30 sec6: SLR 1# 2x107: standing hip abduction 1# [id number] Intervention: Patient was educated in proper exercise techniqueand purpose for exercises.Skilled judgment was provided in selection of appropriate interventions.Correct performance of therapeutic exercises was facilitated with verbaland visual cuing.Billing:[facility]: Therapeutic Exercise (23218): 1:1 time: 40 minutes (3units: 38-52 mins)Total time: 40 minutesLolis Hood PT [facility] CNTHERAPYon 02-23-2017 CNTHERAPY OT/PT/Speech Visit (PTWS) -----MARIELENA LUTZ ([id number]) 1955 F CHAngelitoDarosangela Time Provider Syydzksntg32/27/17 7:30 AM LOLIS HOOD (PT) [facility]WSDel[facility] Hospitaler Number: [id number] Time Provider Department Oybgkz8602/23/2017 7:30 AM [id number], LISA (PT) [facility]Reason for Visit: Physical Therapy [503]Primary Visit Diagnosis:Primary osteoarthritis of right knee [M17.11] Other Visit Diagnosis:Chronic pain of right knee [M25.561, G89.29]Allergies As of Date: 02/23/2017 Noted Allergy ReactionRAGWEED 11/15/2016 9 - ItchingSULFA (SULFONAMIDE ANTIBIOTICS) 11/15/2016 4 - HivesDate Reviewed: 11/15/2016Reviewed by: Gregory Anton ([employer]cer) SUMIT uLna - Fully AssessedPrescriptions as of 02/23/2017 Sig: ASPIRIN 81 MG TABLET,DELAYED * Take 81 mg by mouth once laila* METHYLPREDNISOLONE 4 MG TABLE* As Instructed per packageProgress Notes:Lolis Hood, PT 02/23/2017 8:24 AM SignedEpisode Visit Count: 9Therapist That Will Oversee The Plan Of Care: Lolis HoodPatient Identified by Name and Date of : YesREHABILITATION AND SPORTS THERAPYPHYSICAL THERAPY TREATMENT NOTEASSESSMENT: Marielena Lutz demonstrated improvements in tolerance to all exsand able to add leg press and increase weight for standing leg lifts Thepatient will continue to benefit from continued skilled physical therapy forprogression of exs for ROM and strengthening of right kneePLAN FOR NEXT VISIT:Will assess delayed response of ex and increase if possibleSUBJECTIVE:Pt notes that she is still doing well. Working on pool exs, walking andstrengthening with home program.Pain Score: 2/10Pain Location: Knee - RightDescription: AchingFrequency: ContinuousPost Treatment Pain Score: 4/10Post Treatment Pain Description: AchingOBJECTIVE MEASURES WITH LEVEL OF FUNCTION:Gait AssessmentGait Deviations Right Lower Extremity: (near normal gait)TREATMENT:Therapeutic Exercise:1: blue rep band hamstring curls right 2x102: blue rep band TKE 2x103: leg press 40# bilateral 2x104: quad set with 1/2 bolster under knee 2x105: scifit stepper seat 12 for 6 min.6: SLR 1# 2x107: standing hip abduction 1# [id number] Intervention: Patient was educated in proper exercise technique andpurpose for exercises.Skilled judgment was provided in selection of appropriate interventions.Correct performance of therapeutic exercises was facilitated with verbal andvisual cuing.Billing:[facility]: Therapeutic Exercise ([id number]): 1:1 time: 40 minutes (3 units:38-52 mins)Total time: 40 minutesLolis Hood PT - [facility] PROGRESSon 02-23-2017 PROGRESS HNO ID: [id number] thor: Lolis (Pt) Melodyervice: (none)Author Type: Physical TherapistType: Progress NotesFiled: 02/23/2017 8:24 AMNote Text:Episode Visit Count: 9Therapist That Will Oversee The Plan Of Care: Lolis HoodPatient Identified by Name and Date of : YesREHABILITATION AND SPORTS THERAPYPHYSICAL THERAPY TREATMENT NOTEASSESSMENT: Marielena Lutz demonstrated improvements in tolerance toall exs and able to add leg press and increase weight for standing leglifts The patient will continue to benefit from continued skilledphysical therapy for progression of exs for ROM and strengthening ofright kneePLAN FOR NEXT VISIT:Will assess delayed response of ex and increase if possibleSUBJECTIVE:Pt notes that she is still doing well. Working on pool exs, walking andstrengthening with home program.Pain Score: 2/10Pain Location: Knee - RightDescription: AchingFrequency: ContinuousPost Treatment Pain Score: 4/10Post Treatment Pain Description: AchingOBJECTIVE MEASURES WITH LEVEL OF FUNCTION:Gait AssessmentGait Deviations Right Lower Extremity: (near normal gait)TREATMENT:Therapeutic Exercise:1: blue rep band hamstring curls right 2x102: blue rep band TKE 2x103: leg press 40# bilateral 2x104: quad set with 1/2 bolster under knee 2x105: scifit stepper seat 12 for 6 min.6: SLR 1# 2x107: standing hip abduction 1# [id number] Intervention: Patient was educated in proper exercise techniqueand purpose for exercises.Skilled judgment was provided in selection of appropriate interventions.Correct performance of therapeutic exercises was facilitated with verbaland visual cuing.Billing:[facility]: Therapeutic Exercise ([id number]): 1:1 time: 40 minutes (3units: 38-52 mins)Total time: 40 minutesLolis Hood PT [facility] CNTHERAPYon 02-15-2017 CNTHERAPY OT/PT/Speech Visit (PTWS) -----MARIELENA LUTZ ([id number]) 1955 F CHTDate Time Provider Unmksycpdv55/19/17 10:30 AM LOLIS HOOD (PT) PTWSEncounter Number: [id number] Time Provider Department Xerwbr4902/15/2017 10:30 AM [id number], LISA (PT) [facility]Reason for Visit: PT Progress Note [1826]Reason For Visit History RecordedPrimary Visit Diagnosis:Right leg pain [M79.604] Other Visit Diagnoses:Primary osteoarthritis of right knee [M17.11] Chronic pain of right knee [M25.561, G89.29]Allergies As of Date: 02/15/2017 Noted Allergy ReactionRAGWEED 11/15/2016 9 - ItchingSULFA (SULFONAMIDE ANTIBIOTICS) 11/15/2016 4 - HivesDate Reviewed: 11/15/2016Reviewed by: Gregory Anton ([employer]ail [employer]cer) SUMIT Luna - Fully AssessedPrescriptions as of 02/15/2017 Sig: ASPIRIN 81 MG TABLET,DELAYED * Take 81 mg by mouth once laila* METHYLPREDNISOLONE 4 MG TABLE* As Instructed per packageProgress Notes:Lolis Hood PT 02/15/2017 12:30 PM SignedEpisode Visit Count: 8Therapist That Will Oversee The Plan Of Care: Lolis HoodPatient Identified by Name and Date of : YesREHABILITATION AND SPORTS THERAPYPHYSICAL THERAPY PROGRESS REPORTPLAN OF CARE UPDATE:Assessment: Marielena Lutz exhibits improvements in ROM, pain and gait. Shereceived cortisone injection with benefit. Orthopedist felt she needed to loseweight and strengthen her leg. . She continues to be limited with walking,stair negotiation and physical activities. She is progressing as expectedtowards her therapy goals as demonstrated by: home exercise program compliance,pain levels, documented subjective information on progress and documentedobjective information regarding strength, range of motion and overall function.She will benefit from continued skilled therapy requiring advancment ofstrengthening exs in order to further improve function and pain.Functional gains: Improved gait qualityImproved tolerance for functional activitiesImproved quality of movementIncreased ROMIncreased strengthIndependence in home exercise program/ achieved.Patient will decrease pain to 5/10 with functional activities to allow patientto improve ambulation and standing tolerance for ADLs./ achieved new goal of decrease of pain to 2/10 with on increase with walkingPatient will increase active ROM of right knee to 0-110 to allow pt to improvedperformance of ADLs and to normalize gait mechanics / gait pattern / notacheived.Patient will increase strength of right LE to 4+/5 to allow for return to priorfunctional status, normalized gait mechanics, perform ADLs and negotiatestairs./ partially achievedNormal gait./ partially achievedReciprocal stair negotiation/ not achieved.Planned Interventions, Frequency, and Duration: 3x/week, 4 weeksPatient to be seen for Therapeutic exercise;ModalitiesUltrasou ndPLAN FOR NEXT VISIT: Will increase ex reps as able. Trial of leg pressSUBJECTIVE: Pt states had cortisone injection 2 weeks ago. States that painis alot better. states [place] physician felt she needed to strengthen. Has beentrying to walk and also does pool exs 3-4 days a week to try to lose weight.Pain Score: 2/10Pain Location: Knee - RightDescription: AchingFrequency: ContinuousPost Treatment Pain Score: 4Post Treatment Pain Description: AchingOBJECTIVE MEASURES WITH LEVEL OF FUNCTION:Gait AssessmentGait Deviations Right Lower Extremity: Stance time decreasedLE AROMR Knee Extension: -6 DegreesR Knee Flexion: 100 DegreesL Knee Extension: -5 DegreesL Knee Flexion: 117 DegreesFunctional StrengthStairs: ( unable to perform reciprocal stair climbing)TREATMENT:Therapeu tic Exercise:1: blue rep band hamstring curls right 3x102: blue rep band TKE 2x103: Standing SLR 2x104: supine quad set with towel roll 1x105: scifit stepper seat 12 for 5 min.Skilled Intervention: Patient was educated in proper exercise technique andpurpose for exercises.Skilled judgment was provided in selection of appropriate interventions.Provided written instruction for home exercise program to facilitate properperformance and compliance.Correct performance of therapeutic exercises was facilitated with verbal andvisual cuing.Billing:[facility]: Therapeutic Exercise ([id number]): 1:1 time: 45 minutes (3 units:38-52 mins)Total time: 45 minutesLolis Hood PT - [facility] PROGRESSon 02-15-2017 PROGRESS HNO ID: [id number] thor: Lolis Ga) Melodyervice: (none)Author Type: Physical TherapistType: Progress NotesFiled: 02/15/2017 12:30 PMNote Text:Episode Visit Count: 8Therapist That Will Oversee The Plan Of Care: Lolis HoodPatient Identified by Name and Date of : YesREHABILITATION AND SPORTS THERAPYPHYSICAL THERAPY PROGRESS REPORTPLAN OF CARE UPDATE:Assessment: Marielena Lutz exhibits improvements in ROM, pain andgait. She received cortisone injection with benefit. Orthopedist felt sheneeded to lose weight and strengthen her leg. . She continues to belimited with walking, stair negotiation and physical activities. She isprogressing as expected towards her therapy goals as demonstrated by: homeexercise program compliance, pain levels, documented subjectiveinformation on progress and documented objective information regardingstrength, range of motion and overall function. She will benefit fromcontinued skilled therapy requiring advancment of strengthening exs inorder to further improve function and pain.Functional gains: Improved gait qualityImproved tolerance for functional activitiesImproved quality of movementIncreased ROMIncreased strengthIndependence in home exercise program/ achieved.Patient will decrease pain to 5/10 with functional activities to allowpatient to improve ambulation and standing tolerance for ADLs./ achieved new goal of decrease of pain to 2/10 with on increase with walkingPatient will increase active ROM of right knee to 0-110 to allow pt toimproved performance of ADLs and to normalize gait mechanics / gaitpattern / not acheived.Patient will increase strength of right LE to 4+/5 to allow for return toprior functional status, normalized gait mechanics, perform ADLs andnegotiate stairs./ partially achievedNormal gait./ partially achievedReciprocal stair negotiation/ not achieved.Planned Interventions, Frequency, and Duration: 3x/week, 4 weeksPatient to be seen for Therapeutic exercise;ModalitiesUltrasou ndPLAN FOR NEXT VISIT: Will increase ex reps as able. Trial of leg pressSUBJECTIVE: Pt states had cortisone injection 2 weeks ago. States thatpain is alot better. states [place] physician felt she needed to strengthen.Has been trying to walk and also does pool exs 3-4 days a week to try tolose weight.Pain Score: 2/10Pain Location: Knee - RightDescription: AchingFrequency: ContinuousPost Treatment Pain Score: 4Post Treatment Pain Description: AchingOBJECTIVE MEASURES WITH LEVEL OF FUNCTION:Gait AssessmentGait Deviations Right Lower Extremity: Stance time decreasedLE AROMR Knee Extension: -6 DegreesR Knee Flexion: 100 DegreesL Knee Extension: -5 DegreesL Knee Flexion: 117 DegreesFunctional StrengthStairs: ( unable to perform reciprocal stair climbing)TREATMENT:Therapeu tic Exercise:1: blue rep band hamstring curls right 3x102: blue rep band TKE 2x103: Standing SLR 2x104: supine quad set with towel roll 1x105: scifit stepper seat 12 for 5 min.Skilled Intervention: Patient was educated in proper exercise techniqueand purpose for exercises.Skilled judgment was provided in selection of appropriate interventions.Provided written instruction for home exercise program to facilitateproper performance and compliance.Correct performance of therapeutic exercises was facilitated with verbaland visual cuing.Billing:[facility]: Therapeutic Exercise ([id number]): 1:1 time: 45 minutes (3units: 38-52 mins)Total time: 45 minutesLolis Hood PT [facility] CNTHERAPYon 01-10-2017 CNTHERAPY OT/PT/Speech Visit (PTWS) -----MARIELENA LUTZ ([id number]) 1955 F CHTDate Time Provider Bcmbompbud96/13/17 2:45 PM LOLIS HOOD (PT) PTWSEncounter Number: [id number] Time Provider Department Wnmjvl8201/10/2017 2:45 PM [id number], LISA (PT) [facility]Reason for Visit: Physical Therapy [503]Primary Visit Diagnosis:Right leg pain [M79.604]Allergies As of Date: 01/10/2017 Noted Allergy ReactionRAGWEED 11/15/2016 9 - ItchingSULFA (SULFONAMIDE ANTIBIOTICS) 11/15/2016 4 - HivesDate Reviewed: 11/15/2016Reviewed by: Gregory Anton (Retail Grocer) SUMIT Luna - Fully AssessedPrescriptions as of 01/10/2017 Sig: ASPIRIN 81 MG TABLET,DELAYED * Take 81 mg by mouth once laila* METHYLPREDNISOLONE 4 MG TABLE* As Instructed per packageProgress Notes:Lolis Hood, LUIS ANTONIO 01/10/2017 6:32 PM SignedREHABILITATION AND SPORTS THERAPYPHYSICAL THERAPY TREATMENT NOTEASSESSMENT: Marielena Lutz demonstrated difficulty with knee flexion andextension, gait and mobility. She is noted to still have decreased pain withlumbar extension but increased pain with end range movements of knee. She isscheduled for MRI of the knee this week as ordered from her chiropractor. Stillwith some component of lumbar radiculopathy but also localized knee dysfunction.The patient will continue to benefit from continued skilled physical therapy forprogression of exs as deemed appropriatePLAN:Plan for next visit: Will continue with ultrsound if helpful, possibly add TKE.core stabilizationSUBJECTIVE: Pt reports that she was on vacation to [place] [place]. Tried towalk one day with increased pain. Had to spend the next day in hotel d/t painthroughtout LEPain Score: 6/10Pain Location: Knee - RightDescription: Aching;SharpFrequency: ContinuousPost Treatment Pain Score: 5/10Post Treatment Pain Description: AchingOBJECTIVE MEASURES WITH LEVEL OF FUNCTION:Gait AssessmentGait Deviations Right Lower Extremity: Weight bearing decreased ( decreased kneeflexion)TREATMENT:Thera peutic Exercise:1: blue rep band hamstring curls right 3x102: purple rep band trunk extension 3x103: prone prop x2 min4: prone press ups [id number] Intervention: Patient was educated in proper exercise technique andpurpose for exercises.Skilled judgment was provided in selection of appropriate interventions.Correct performance of therapeutic exercises was facilitated with verbal andvisual cuing.Modalities:Ultrasound See flowsheet for details regarding treatment. Skilled Intervention: Properadministration and selection of modality based on clinical presentation,deficits, and needs. Patient response monitored throughout treatment.Billing:[facility]: Therapeutic Exercise ([id number]): 1:1 time:20 min (1 units: 8-22mins)Modalities Ultrasound ([id number]) 1:1 time: 10 minutes1 unit: 8-22 minsTotal time: 30 minutesLolis Hood PT - [facility] PROGRESSon 01-10-2017 PROGRESS HNO ID: [id number] thor: Lolis (Pt) NavjotonService: (none)Author Type: Physical TherapistType: Progress NotesFiled: 01/10/2017 6:32 PMNote Text:REHABILITATION AND SPORTS THERAPYPHYSICAL THERAPY TREATMENT NOTEASSESSMENT: Marielena Lutz demonstrated difficulty with knee flexionand extension, gait and mobility. She is noted to still have decreasedpain with lumbar extension but increased pain with end range movements ofknee. She is scheduled [facility] Still with some component of lumbar radiculopathy but alsolocalized knee dysfunction. The patient will continue to benefit fromcontinued skilled physical therapy for progression of exs as deemedappropriatePLAN:Plan for next visit: Will continue with ultrsound if helpful, possibly addTKE. core stabilizationSUBJECTIVE: Pt reports that she was on vacation to [place].Tried to walk one day with increased pain. Had to spend the next day inhotel d/t pain throughtout LEPain Score: 6/10Pain Location: Knee - RightDescription: Aching;SharpFrequency: ContinuousPost Treatment Pain Score: 5/10Post Treatment Pain Description: AchingOBJECTIVE MEASURES WITH LEVEL OF FUNCTION:Gait AssessmentGait Deviations Right Lower Extremity: Weight bearing decreased (decreased knee flexion)TREATMENT:Therapeut ic Exercise:1: blue rep band hamstring curls right 3x102: purple rep band trunk extension 3x103: prone prop x2 min4: prone press ups [id number] Intervention: Patient was educated in proper exercise techniqueand purpose for exercises.Skilled judgment was provided in selection of appropriate interventions.Correct performance of therapeutic exercises was facilitated with verbaland visual cuing.Modalities:Ultrasound See flowsheet for details regarding treatment. Skilled Intervention:Proper administration and selection of modality based on clinicalpresentation, deficits, and needs. Patient response monitored throughouttreatment.Billing :[facility]: Therapeutic Exercise ([id number]): 1:1 time:20 min (1 units:8-22 mins)Modalities Ultrasound ([id number]) 1:1 time: 10 minutes1 unit: 8-22 minsTotal time: 30 minutesLolis Hood [facility] 12-20-2016 CNTHERAPY OT/PT/Speech Visit (PTWS) -----MARIELENA LUTZ ([id number]) 1955 F CHTDate Time Provider Snwartetkp25/23/17 2:00 PM LOLIS HOOD (PT) PTWSEncounter Number: [id number] Time Provider Department Gdladl0612/20/2016 2:00 PM [id number], LISA (PT) [facility] for Visit: PT Progress Note [[id number]]Reason For Visit History RecordedPrimary Visit Diagnosis:Right leg pain [M79.604]Allergies As of Date: 12/20/2016 Noted Allergy ReactionRAGWEED 11/15/2016 9 - ItchingSULFA (SULFONAMIDE ANTIBIOTICS) 11/15/2016 4 - HivesDate Reviewed: 11/15/2016Reviewed by: Gregory Anton ([employer]ail [employer]cer) SUMIT Luna - Fully AssessedPrescriptions as of 12/20/2016 Sig: ASPIRIN 81 MG TABLET,DELAYED * Take 81 mg by mouth once laila* METHYLPREDNISOLONE 4 MG TABLE* As Instructed per packageProgress Notes:Lolis Hood PT 12/20/2016 5:49 PM Signed[facility]PH[facility]ICAL THERAPY PROGRESS REPORTGENERAL RECORD INFORMATION:CURRENT VISIT NUMBER: 6 of 9 visits per current plan of careONSET:fall in June 20161st:11/22/16Cert Date:NATHERAPISTS NAME: Lolis Hood PTINSURANCE TYPE: Payor: AULTCARE / Plan: AULTCARE / Product Type:Indemnity /REFERRING PROVIDER: Gregory Luna ([employer]ail [employer]), *Relevant information: worse in August with pain in leg., in the car going forvacation sitting for 1 1/2 hours, could not get out of car entire leg from thighto calf area painful, unable to lift leg it was so painful . Fall involvedtwisting and hit right side. Has been walking without bending knee since thattimePLAN OF CARE: 11/22/2016Patient identified by name and date: YesPLAN OF CARE: Updated 12/20/2016SUBJECTIVE:Pt notes that since has had catching in right knee with giving way ofthe knee, States pain and limitation of knee flexion again. Has been still doingexs but no changePatient rating of condition: better since start of treatment but not as good aslast weekPain: Yes: Knee right; Intensity: 6.0/10. Pain is described as aching/ sharp attimes with catching. Duration of pain is constant.Patient Reported Outcome Measures: See PT/OT Health Status belowOBJECTIVE MEASURES WITH LEVEL OF FUNCTION:ROM:Lumbar: Flexion: Minimal limitationExtension: not tested, prone prop still with less painKnee: Right: 15-102 degreesLeft: 0-120 degreesStrength:Hip: Right hip: flexion: 3-/5Left hip: flexion: 5/5Knee: Right knee: flexion:5/5 with painextension: 3-/5Left knee: flexion: 5/5extension: 5/5Functional Strength: Difficulty with walking and stairsSpecial Tests: Still less leg sx with prone lying but anterior knee pain withactive extension with palpable pop. Pain with patellar mobilization proximal todistal but not side to side. Medial jt line tenderness and less lateral jt linetendernessFunction/Gait : Pt ambulates with moderate gait deviation of no knee flexiondecreased swing on right, decreased stance time rightTREATMENT:Therapeutic Exercise:supine right SLR 2x10, SAQ 2x10 prone lying x1 min with decreased pain in thigh x3 scifit stepper seat 11 partial range for 4 min, slow alysha heel slides for knee flexion 1x5 patellar mobilization side to side 2x10 lacrosse ball soft tissue mobilization to quad region Skilled Intervention: Patient was educated in proper exercise technique andpurpose for exercises.Skilled judgment was provided in selection of appropriate interventions/advancement of exs.Provided verbal instruction for home exercise program to facilitate properperformance and compliance. Add patellar mobilizationCorrect performance of therapeutic exercises was facilitated with verbal andvisual cuing.Modalities: Ultrasound: Body region treated: right knee medial and lateral.Patient position: seated Parameters: 50% mode, 1.3 w/cm2, 1 MHZ, 10minutes.Skilled Intervention: Proper administration and selection of modality based onclinical presentation, deficits, and needs. Patient response monitoredthroughout treatment.Post Treatment Pain/Symptoms: " a little better"PLAN OF CARE UPDATE:Assessment: Pt doing better until Thurs. Pt with catching and giving way ofright knee. Pain in medial greater than lateral and painful active extension.Trial of ultrasound with some improvement and overall improved flexion of kneeand mobility. Feel current sx of knee more true knee then related to nerve painof the lumbar regionFunctional gains: Increased independence with HEPIncreased ROMIncreased strengthGoals for Episode of Care Updated: 12/20/2016Independence in home exercise program.Patient will decrease pain to 5/10 with functional activities to allow patientto improve ambulation and standing tolerance for ADLs.Patient will increase active ROM of right knee to 0-120 to allow pt toimproved performance of ADLs and to normalize gait mechanics / gait pattern .Patient will increase strength of right LE to 4+/5 to allow for return to priorfunctional status, normalized gait mechanics, perform ADLs and negotiate stairs.Normal gait.Reciprocal stair negotiation.Planned Interventions, Frequency, and Duration: Follow up for two visit(s) perweek for four weeks for Gait training , HEP, Modalities and Therapeutic exerciseBilling:[facility]: Therapeutic Exercise ([id number]): 1:1 time: 30 minutes (2units: 23-37 mins)Modalities Ultrasound ([id number]) 1:1 time: 10 minutes1 unit: 8-22 minsTotal time: 40 minutesLolis Hood PT - [facility] PROGRESSon 12-20-2016 PROGRESS HNO ID: [id number] thor: Lolis (Pt) NavjotonService: (none)Author Type: Physical TherapistType: Progress NotesFiled: 12/20/2016 5:49 PMNote Text:[facility]PHYSICAL THERAPY PROGRESS REPORTGENERAL RECORD INFORMATION:CURRENT VISIT NUMBER: 6 of 9 visits per current plan of careONSET:fall in June 20161st:11/22/16Cert Date:NATHERAPISTS NAME: Lolis Hood PTINSURANCE TYPE: Payor: AULTCARE / Plan: AULTCARE / ProductType: Indemnity /REFERRING PROVIDER: Gregory Luna ([employer]cer), *Relevant information: worse in August with pain in leg., in the car goingfor vacation sitting for 1 1/2 hours, could not get out of car entire legfrom thigh to calf area painful, unable to lift leg it was so painful .Fall involved twisting and hit right side. Has been walking withoutbending knee since that timePLAN OF CARE: 11/22/2016Patient identified by name and date: YesPLAN OF CARE: Updated 12/20/2016SUBJECTIVE:Pt notes that since has had catching in right knee with givingway of the knee, States pain and limitation of knee flexion again. Hasbeen still doing exs but no changePatient rating of condition: better since start of treatment but not asgood as last weekPain: Yes: Knee right; Intensity: 6.0/10. Pain is described as aching/sharp at times with catching. Duration of pain is constant.Patient Reported Outcome Measures: See PT/OT Health Status belowOBJECTIVE MEASURES WITH LEVEL OF FUNCTION:ROM:Lumbar: Flexion: Minimal limitationExtension: not tested, prone prop still with less painKnee: Right: 15-102 degreesLeft: 0-120 degreesStrength:Hip: Right hip: flexion: 3-/5Left hip: flexion: 5/5Knee: Right knee: flexion:5/5 with painextension: 3-/5Left knee: flexion: 5/5extension: 5/5Functional Strength: Difficulty with walking and stairsSpecial Tests: Still less leg sx with prone lying but anterior knee painwith active extension with palpable pop. Pain with patellar mobilizationproximal to distal but not side to side. Medial jt line tenderness andless lateral jt line tendernessFunction/Gait: Pt ambulates with moderate gait deviation of no kneeflexion decreased swing on right, decreased stance time rightTREATMENT:Therapeutic Exercise:supine right SLR 2x10, SAQ 2x10 prone lying x1 min with decreased pain in thigh x3 scifit stepper seat 11 partial range for 4 min, slow alysha heel slides for knee flexion 1x5 patellar mobilization side to side 2x10 lacrosse ball soft tissue mobilization to quad region Skilled Intervention: Patient was educated in proper exercisetechnique and purpose for exercises.Skilled judgment was provided in selection of appropriate interventions/advancement of exs.Provided verbal instruction for home exercise program to facilitate properperformance and compliance. Add patellar mobilizationCorrect performance of therapeutic exercises was facilitated with verbaland visual cuing.Modalities: Ultrasound: Body region treated: right knee medial andlateral. Patient position: seated Parameters: 50% mode, 1.3 w/cm2, 1MHZ, 10minutes. Skilled Intervention: Proper administration andselection of modality based on clinical presentation, deficits, and needs. Patient response monitored throughout treatment.Post Treatment Pain/Symptoms: " a little better"PLAN OF CARE UPDATE:Assessment: Pt doing better until Thurs. Pt with catching and giving wayof right knee. Pain in medial greater than lateral and painful activeextension. Trial of ultrasound with some improvement and overall improvedflexion of knee and mobility. Feel current sx of knee more true knee thenrelated to nerve pain of the lumbar regionFunctional gains: Increased independence with HEPIncreased ROMIncreased strengthGoals for Episode of Care Updated: 12/20/2016Independence in home exercise program.Patient will decrease pain to 5/10 with functional activities to allowpatient to improve ambulation and standing tolerance for ADLs.Patient will increase active ROM of right knee to 0-120 to allow pt toimproved performance of ADLs and to normalize gait mechanics / gaitpattern .Patient will increase strength of right LE to 4+/5 to allow for return toprior functional status, normalized gait mechanics, perform ADLs andnegotiate stairs.Normal gait.Reciprocal stair negotiation.Planned Interventions, Frequency, and Duration: Follow up for twovisit(s) per week for four weeks for Gait training , HEP, Modalities andTherapeutic exerciseBilling:[facility]: Therapeutic Exercise ([id number]): 1:1 time: 30minutes (2 units: 23-37 mins)Modalities Ultrasound ([id number]) 1:1 time: 10 minutes1 unit: 8-22 minsTotal time: 40 minutesLolis Hood PT [facility] CNTHERAPYon 12-13-2016 CNTHERAPY OT/PT/Speech Visit (PTWS) -----MARIELENA LUTZ ([id number]) 1955 [facility] Qlaeawfxtr76/16/17 8:00 AM LOLIS HOOD (PT) PTWSEncounter Number: [id number] Time Provider Department Supbuq0612/13/2016 8:00 AM [id number], LISA (PT) [facility]Reason for Visit: Physical Therapy [503]Primary Visit Diagnosis:Right leg pain [M79.604]Allergies As of Date: 12/13/2016 Noted Allergy ReactionRAGWEED 11/15/2016 9 - ItchingSULFA (SULFONAMIDE ANTIBIOTICS) 11/15/2016 4 - HivesDate Reviewed: 11/15/2016Reviewed by: Gregory Anton ([employer]) SUMIT Luna - Fully AssessedPrescriptions as of 12/13/2016 Sig: ASPIRIN 81 MG TABLET,DELAYED * Take 81 mg by mouth once laila* METHYLPREDNISOLONE 4 MG TABLE* As Instructed per packageProgress Notes:Lolis Hood PT 12/13/2016 10:11 AM Signed[facility]PHYSICAL THERAPY TREATMENT NOTEGENERAL RECORD INFORMATIONCURRENT VISIT NUMBER: 5 of 9 visits per current plan of careONSET:fall in June 20161st:11/22/16Cert Date:NATHERAPISTS NAME: Lolis Hood PTINSURANCE TYPE: Payor: AULTCARE / Plan: AULTCARE / Product Type:Indemnity /REFERRING PROVIDER: Gregory Luna ([employer]), *Relevant information: worse in August with pain in leg., in the car going forvacation sitting for 1 1/2 hours, could not get out of car entire leg from thighto calf area painful, unable to lift leg it was so painful . Fall involvedtwisting and hit right side. Has been walking without bending knee since thattimePLAN OF CARE: 11/22/2016Patient identified by name and date: YesSUBJECTIVE: Pt reports that she continues to improve. Feels that she is about75% improved currently. Exs at home going ok. Pain/Symptom(s):Yes: Thigh right; Intensity:4.0/10. Pain is described asaching. Duration of pain is constant.OBJECTIVE MEASURES WITH LEVEL OF FUNCTION: [facility] without cane and minimal gait deviation. Supine knee 90degrees actively with ease.TREATMENT: Therapeutic Exercise: standing left trunk lateral flexion`x10 reps seated purple rep band trunk extension 3x10, standing right hip SLR 2x10, standing right hip abduction 2x10 hamstring stretch with foot on floor 15 sec x5 gentle prone prop lumbar x30 secondsx3 prone lying x1 min with decreased pain in thigh x3 standing step stretch for knee flexion 1x10 deferred scifit stepper seat 11 partial range for 4 min, slow alysha Skilled Intervention: Patient was educated in proper exercise technique andpurpose for exercises.Skilled judgment was provided in selection of appropriate interventions/advancement of exs.Provided verbal instruction for home exercise program to facilitate properperformance and compliance. Increase reps of exs as able. Advance to purple repband for trunk extensionCorrect performance of therapeutic exercises was facilitated with verbal andvisual cuing.Educated patient on rationale for performing exercises in regards to decreasingpainPost Treatment Pain/Symptom(s): not quantifiedASSESSMENT: Pt continues to improve with less guarding and pain with gait andtransfers. Sitting easily with knees flexed. Still with some soreness after PTsession so did not advance exs further. Good tolerance to home exsPLAN: Follow up for two visit(s) per week for Gait training , HEP, Manualtherapy, Modalities, Therapeutic exercise and Traction . Consider additionallumbar and knee exs as toleratedBilling:[facility]: Therapeutic Exercise ([id number]): 1:1 time: 30 minutes (2units: 23-37 mins)Total time: 30 minutesLisa Sana PT - [facility] PROGRESSon 12-13-2016 PROGRESS HNO ID: [id number] thor: Lolis (Pt) GarrisonService: (none)Author Type: Physical TherapistType: Progress NotesFiled: 12/13/2016 10:11 AMNote Text:[facility] TH[facility]PHYSICAL THERAPY TREATMENT NOTEGENERAL RECORD INFORMATIONCURRENT VISIT NUMBER: 5 of 9 visits per current plan of careONSET:fall in June 20161st:11/22/16Cert Date:NATHERAPISTS NAME: Lolis Hood, PTINSURANCE TYPE: Payor: AULTCARE / Plan: AULTCARE / ProductType: Indemnity /REFERRING PROVIDER: Gregory Luna ([employer]), *Relevant information: worse in August with pain in leg., in the car goingfor vacation sitting for 1 1/2 hours, could not get out of car entire legfrom thigh to calf area painful, unable to lift leg it was so painful .Fall involved twisting and hit right side. Has been walking withoutbending knee since that timePLAN OF CARE: 11/22/2016Patient identified by name and date: YesSUBJECTIVE: Pt reports that she continues to improve. Feels that she isabout 75% improved currently. Exs at home going ok. Pain/Symptom(s):Yes: Thigh right; Intensity:4.0/10. Pain is described asaching. Duration of pain is constant.OBJECTIVE MEASURES WITH LEVEL OF FUNCTION: Pt ambulates to dept without cane and minimal gait deviation. Supineknee 90 degrees actively with ease.TREATMENT: Therapeutic Exercise: standing left trunk lateral flexion`x10 reps seated purple rep band trunk extension 3x10, standing right hip SLR 2x10, standing right hip abduction 2x10 hamstring stretch with foot on floor 15 sec x5 gentle prone prop lumbar x30 secondsx3 prone lying x1 min with decreased pain in thigh x3 standing step stretch for knee flexion 1x10 deferred scifit stepper seat 11 partial range for 4 min, slow alysha Skilled Intervention: Patient was educated in proper exercisetechnique and purpose for exercises.Skilled judgment was provided in selection of appropriate interventions/advancement of exs.Provided verbal instruction for home exercise program to facilitate properperformance and compliance. Increase reps of exs as able. Advance topurple rep band for trunk extensionCorrect performance of therapeutic exercises was facilitated with verbaland visual cuing.Educated patient on rationale for performing exercises in regards todecreasing painPost Treatment Pain/Symptom(s): not quantifiedASSESSMENT: Pt continues to improve with less guarding and pain withgait and transfers. Sitting easily with knees flexed. Still with somesoreness after PT session so did not advance exs further. Good toleranceto home exsPLAN: Follow up for two visit(s) per week for Gait training , HEP, Manualtherapy, Modalities, Therapeutic exercise and Traction . Consideradditional lumbar and knee exs as toleratedBilling:[facility]: Therapeutic Exercise ([id number]): 1:1 time: 30minutes (2 units: 23-37 mins)Total time: 30 minutesLolis Hood PT [facility] CNTHERAPYon 12-06-2016 CNTHERAPY OT/PT/Speech Visit (PTWS) -----MARIELENA LUTZ ([id number]) 1955 F CHTDate Time Provider Fvmfguqkvg56/9/17 3:30 PM LOLIS HOOD (PT) PTWSEncounter Number: [id number] Time Provider Department Otjgxk8212/06/2016 3:30 PM [id number], LISA (PT) [facility]Reason for Visit: Physical Therapy [503]Primary Visit Diagnosis:Right leg pain [M79.604]Allergies As of Date: 12/06/2016 Noted Allergy ReactionRAGWEED 11/15/2016 9 - ItchingSULFA (SULFONAMIDE ANTIBIOTICS) 11/15/2016 4 - HivesDate Reviewed: 11/15/2016Reviewed by: Gregory Anton ([employer]cer) SUMIT Luna - Fully AssessedPrescriptions as of 12/06/2016 Sig: ASPIRIN 81 MG TABLET,DELAYED * Take 81 mg by mouth once laila* METHYLPREDNISOLONE 4 MG TABLE* As Instructed per packageProgress Notes:Lolis Hood PT 12/06/2016 5:08 PM Signed[facility]PHYSICAL THERAPY TREATMENT NOTEGENERAL RECORD INFORMATIONCURRENT VISIT NUMBER: 4 of 9 visits per current plan of careONSET:fall in June 20161st:11/22/16Cert Date:NATHERAPISTS NAME: Lolis Hood, PTINSURANCE TYPE: Payor: AULTCARE / Plan: AULTCARE / Product Type:Indemnity /REFERRING PROVIDER: Gregory Luna (Retail [employer]cer), *Relevant information: worse in August with pain in leg., in the car going forvacation sitting for 1 1/2 hours, could not get out of car entire leg from thighto calf area painful, unable to lift leg it was so painful . Fall involvedtwisting and hit right side. Has been walking without bending knee since thattimePLAN OF CARE: 11/22/2016Patient identified by name and date: YesSUBJECTIVE: Pt notes that she was sore for about a day and 1/2 after lastvisit. Overall feels she is becoming more mobile and forgot her cane at a storetoday but will go back to pick it up Pain/Symptom(s):Yes: Thigh right;Intensity:5.0/10. Pain is described as aching. Duration of pain is constant.some grabbing and sharpOBJECTIVE MEASURES WITH LEVEL OF FUNCTION: none taken todayTREATMENT: Therapeutic Exercise: standing left trunk lateral flexion`x10 reps seated green rep band trunk [id number], deferred standing right hip SLR 2x10, deferred standing right hip abduction 2x10 deferred trial of manual belt traction 30 sec x3 with increased pain so discontinued hamstring stretch with foot on floor 30 sec x5 gentle prone prop lumbar x30 secondsx3 prone lying x1 min with decreased pain in thigh x3 standing step stretch for knee flexion 1x10 deferred scifit stepper seat 11 partial range for 4 min, slow alysha standing lumbar extension with increased pain in calf during , no worse asresult Skilled Intervention: Patient was educated in proper exercise technique andpurpose for exercises.Skilled judgment was provided in selection of appropriate interventions/advancement of exs.Provided verbal instruction for home exercise program to facilitate properperformance and compliance. Pt to increase leg lifts to 2x12, hip flexion andabduction, increase freq of prone lying, increase lumbar extension with repband to 12 at home 2-3 setsCorrect performance of therapeutic exercises was facilitated with verbal andvisual cuing.Educated patient on rationale for performing exercises in regards to decreasingpainPost Treatment Pain/Symptom(s): a little more sore"ASSESSMENT: Pt doing better with increased alysha and knee flexion withgait. Pt noted to have most centralized pain with prone lying . Trial of belttraction and standing extension without success of centralization. Pt remainsmotivatedPLAN: Follow up for two visit(s) per week for four weeks for Gait training ,HEP, Manual therapy, Modalities, Therapeutic exercise and Traction . Mayconsider ultrasound to lumbar regionBilling:[facility]: Therapeutic Exercise ([id number]): 1:1 time: 35 minutes (2units: 23-37 mins)Total time: 35 minutesLolis Hood PT - [facility] PROGRESSon 12-06-2016 PROGRESS HNO ID: [id number] thor: Lolis (Pt) NavjotonService: (none)Author Type: Physical TherapistType: Progress NotesFiled: 12/06/2016 5:08 PMNote Text:[facility]PHYSICAL THERAPY TREATMENT NOTEGENERAL RECORD INFORMATIONCURRENT VISIT NUMBER: 4 of 9 visits per current plan of careONSET:fall in June 20161st:11/22/16Cert Date:NATHERAPISTS NAME: Lolis Hood PTINSURANCE TYPE: Payor: AULTCARE / Plan: AULTCARE / ProductType: Indemnity /REFERRING PROVIDER: Gregory Luna (Retail [employer]cer), *Relevant information: worse in August with pain in leg., in the car goingfor vacation sitting for 1 1/2 hours, could not get out of car entire legfrom thigh to calf area painful, unable to lift leg it was so painful .Fall involved twisting and hit right side. Has been walking withoutbending knee since that timePLAN OF CARE: 11/22/2016Patient identified by name and date: YesSUBJECTIVE: Pt notes that she was sore for about a day and 1/2 afterlast visit. Overall feels she is becoming more mobile and forgot her caneat a store today but will go back to pick it up Pain/Symptom(s):Yes:Thigh right; Intensity:5.0/10. Pain is described as aching. Duration ofpain is constant. some grabbing and sharpOBJECTIVE MEASURES WITH LEVEL OF FUNCTION: none taken todayTREATMENT: Therapeutic Exercise: standing left trunk lateral flexion`x10 reps seated green rep band trunk [id number], deferred standing right hip SLR 2x10, deferred standing right hip abduction 2x10 deferred trial of manual belt traction 30 sec x3 with increased pain sodiscontinued hamstring stretch with foot on floor 30 sec x5 gentle prone prop lumbar x30 secondsx3 prone lying x1 min with decreased pain in thigh x3 standing step stretch for knee flexion 1x10 deferred scifit stepper seat 11 partial range for 4 min, slow alysha standing lumbar extension with increased pain in calf during , no worseas result Skilled Intervention: Patient was educated in proper exercise techniqueand purpose for exercises.Skilled judgment was provided in selection of appropriate interventions/advancement of exs.Provided verbal instruction for home exercise program to facilitate properperformance and compliance. Pt to increase leg lifts to 2x12, hipflexion and abduction, increase freq of prone lying, increase lumbarextension with rep band to 12 at home 2-3 setsCorrect performance of therapeutic exercises was facilitated with verbaland visual cuing.Educated patient on rationale for performing exercises in regards todecreasing painPost Treatment Pain/Symptom(s): " a little more sore"ASSESSMENT: Pt doing better with increased alysha and knee flexionwith gait. Pt noted to have most centralized pain with prone lying . Trialof belt traction and standing extension without success of centralization.Pt remains motivatedPLAN: Follow up for two visit(s) per week for four weeks for Gait training, HEP, Manual therapy, Modalities, Therapeutic exercise and Traction . Mayconsider ultrasound to lumbar regionBilling:[facility]: Therapeutic Exercise ([id number]): 1:1 time: 35minutes (2 units: 23-37 mins)Total time: 35 minutesLolis Hood PT [facility]THERAPY[facility] 12-03-2016 CNTHERAPY OT/PT/Speech Visit (PTWS) -----MARIELENA LUTZ ([id number]) 1955 F CHTDate Time Provider Qdbepbyhfy57/6/17 10:00 AM LOLIS HOOD (PT) PTWSEncounter Number: [id number] Time Provider Department Fmogor1212/03/2016 10:00 AM [id number], LISA (PT) [facility] for Visit: Physical Therapy [503]Primary Visit Diagnosis:Right leg pain [M79.604]Allergies As of Date: 12/03/2016 Noted Allergy ReactionRAGWEED 11/15/2016 9 - ItchingSULFA (SULFONAMIDE ANTIBIOTICS) 11/15/2016 4 - HivesDate Reviewed: 11/15/2016Reviewed by: Gregory Anton (Retail [employer]cer) SUMIT Luna - Fully AssessedPrescriptions as of 12/03/2016 Sig: ASPIRIN 81 MG TABLET,DELAYED * Take 81 mg by mouth once laila* METHYLPREDNISOLONE 4 MG TABLE* As Instructed per packageProgress Notes:Lolis Hood PT 12/03/2016 10:48 AM SignedAK[facility] THER[facility]PHYSICAL THERAPY TREATMENT NOTEGENERAL RECORD INFORMATIONCURRENT VISIT NUMBER: 3 of 9 visits per current plan of careONSET:fall in June 20161st:11/22/16Cert Date:NATHERAPISTS NAME: Lolis Hood PTINSURANCE TYPE: Payor: AULTCARE / Plan: AULTCARE / Product Type:Indemnity /REFERRING PROVIDER: Gregory Luna (Retail [employer]cer), *Relevant information: worse in August with pain in leg., in the car going forvacation sitting for 1 1/2 hours, could not get out of car entire leg from thighto calf area painful, unable to lift leg it was so painful . Fall involvedtwisting and hit right side. Has been walking without bending knee since thattimePLAN OF CARE: 11/22/2016Patient identified by name and date: YesSUBJECTIVE: Pt states that new exs have been ok. Does state some sorenesslasting one day after last session Pain/Symptom(s):Yes: Thigh right; Intensity:5-6.0/10. Pain is described asaching. Duration of pain is constant. some grabbing and sharpOBJECTIVE MEASURES WITH LEVEL OF FUNCTION: Pt knee flexion greater 90 degrees, and extension to near zero degrees Cues needed for gait with st. cane and instruction for proper height of st.caneTREATMENT: Therapeutic Exercise: standing left trunk lateral flexion 2x10 reps seated green rep band trunk [id number], standing right hip SLR 2x10 standing right hip abduction 2x10 use of lacrosse ball for soft tissue stretching to quad and I-T band region x5min while sitting hamstring stretch with foot on floor 30 sec x5 gentle prone prop lumbar x30 seconds prone lying x2 min with decreased pain in thigh standing step stretch for knee flexion 1x10 scifit stepper seat 11 partial range for 4 min, slow alysha Skilled Intervention: Patient was educated in proper exercise technique andpurpose for exercises.Skilled judgment was provided in selection of appropriate interventions/advancement of exs.Provided verbal instruction for home exercise program to facilitate properperformance and compliance. Pt to increase leg lifts to 2x10, hip flexion andabduction, increase freq of prone lying, and add step stretch for knee flexionCorrect performance of therapeutic exercises was facilitated with verbal andvisual cuing.Educated patient on rationale for performing exercises in regards to decreasingpainPost Treatment Pain/Symptom(s): a little more sore"ASSESSMENT: Pt continues to note some functional improvements and improvedmobility. Some soreness after therapy but tolerating home exs ok. Slightlyincreased knee ROM. Most relief with prone lying and left sidebending to performfrequently during the day.PLAN: Follow up for two visit(s) per week for four weeks for Gait training ,HEP, Manual therapy, Modalities, Therapeutic exercise and Traction . Mayconsider ultrasound to lumbar region or trial for belt tractionBilling:[facility]: Therapeutic Exercise ([id number]): 1:1 time: 40 minutes (3units: 38-52 mins)Total time: 40 minutesLisa Hood PT - [facility] PROGRESSon 12-03-2016 PROGRESS HNO ID: [id number] thor: Lolis SolorzanoPtKrishna MorfinonService: (none)Author Type: Physical TherapistType: Progress NotesFiled: 12/03/2016 10:48 AMNote Text:[facility] TH[facility]PHYSICAL THERAPY TREATMENT NOTEGENERAL RECORD INFORMATIONCURRENT VISIT NUMBER: 3 of 9 visits per current plan of careONSET:fall in June 20161st:11/22/16Cert Date:NATHERAPISTS NAME: Lolis Hood PTINSURANCE TYPE: Payor: AULTCARE / Plan: AULTCARE / ProductType: Indemnity /REFERRING PROVIDER: Gregory Luna (Retail [employer]cer), *Relevant information: worse in August with pain in leg., in the car goingfor vacation sitting for 1 1/2 hours, could not get out of car entire legfrom thigh to calf area painful, unable to lift leg it was so painful .Fall involved twisting and hit right side. Has been walking withoutbending knee since that timePLAN OF CARE: 11/22/2016Patient identified by name and date: YesSUBJECTIVE: Pt states that new exs have been ok. Does state somesoreness lasting one day after last session Pain/Symptom(s):Yes: Thigh right; Intensity:5-6.0/10. Pain is describedas aching. Duration of pain is constant. some grabbing and sharpOBJECTIVE MEASURES WITH LEVEL OF FUNCTION: Pt knee flexion greater 90 degrees, and extension to near zero degrees Cues needed for gait with st. cane and instruction for proper height ofst. caneTREATMENT: Therapeutic Exercise: standing left trunk lateral flexion 2x10 reps seated green rep band trunk [id number], standing right hip SLR 2x10 standing right hip abduction 2x10 use of lacrosse ball for soft tissue stretching to quad and I-T bandregion x5 min while sitting hamstring stretch with foot on floor 30 sec x5 gentle prone prop lumbar x30 seconds prone lying x2 min with decreased pain in thigh standing step stretch for knee flexion 1x10 scifit stepper seat 11 partial range for 4 min, slow alysha Skilled Intervention: Patient was educated in proper exercise techniqueand purpose for exercises.Skilled judgment was provided in selection of appropriate interventions/advancement of exs.Provided verbal instruction for home exercise program to facilitate properperformance and compliance. Pt to increase leg lifts to 2x10, hipflexion and abduction, increase freq of prone lying, and add stepstretch for knee flexionCorrect performance of therapeutic exercises was facilitated with verbaland visual cuing.Educated patient on rationale for performing exercises in regards todecreasing painPost Treatment Pain/Symptom(s): a little more sore"ASSESSMENT: Pt continues to note some functional improvements andimproved mobility. Some soreness after therapy but tolerating home exs ok.Slightly increased knee ROM. Most relief with prone lying and leftsidebending to perform frequently during the day.PLAN: Follow up for two visit(s) per week for four weeks for Gait training, HEP, Manual therapy, Modalities, Therapeutic exercise and Traction . Mayconsider ultrasound to lumbar region or trial for belt tractionBilling:[facility]: Therapeutic Exercise ([id number]): 1:1 time: 40minutes (3 units: 38-52 mins)Total time: 40 minutesLUIS ANTONIO [facility] CNTHERAPYon 11-29-2016 CNTHERAPY OT/PT/Speech Visit (PTWS) -----MARIELENA LUTZ ([id number]) 1955 F CHTDate Time Provider Cjmymkozzb92/2/17 3:30 PM LOLIS HOOD (PT) PTWSEncounter Number: [id number] Time Provider Department Ektuzm8611/29/2016 3:30 PM [id number], LISA (PT) [facility]Reason for Visit: Physical Therapy [503]Primary Visit Diagnosis:Right leg pain [M79.604]Allergies As of Date: 11/29/2016 Noted Allergy ReactionRAGWEED 11/15/2016 9 - ItchingSULFA (SULFONAMIDE ANTIBIOTICS) 11/15/2016 4 - HivesDate Reviewed: 11/15/2016Reviewed by: Gregory Anton (Leti) SUMIT Luna - Fully AssessedPrescriptions as of 11/29/2016 Sig: ASPIRIN 81 MG TABLET,DELAYED * Take 81 mg by mouth once laila* METHYLPREDNISOLONE 4 MG TABLE* As Instructed per packageProgress Notes:Lolis Hood PT 11/30/2016 11:37 AM Signed[facility]PHYSICAL THERAPY TREATMENT NOTEGENERAL RECORD INFORMATIONCURRENT VISIT NUMBER: 2 of 9 visits per current plan of careONSET:fall in June 20161st:11/22/16Cert Date:NATHERAPISTS NAME: Lolis Hood PTINSURANCE TYPE: Payor: AULTCARE / Plan: AULTCARE / Product Type:Indemnity /REFERRING PROVIDER: Gregory Luna (Leti), *Relevant information: worse in August with pain in leg., in the car going forvacation sitting for 1 1/2 hours, could not get out of car entire leg from thighto calf area painful, unable to lift leg it was so painful . Fall involvedtwisting and hit right side. Has been walking without bending knee since thattimePLAN OF CARE: 11/22/2016Patient identified by name and date: YesSUBJECTIVE: Pt notes that she has a little less pain today. Is going to haveanother chiropractic treatment of stim to I-T band region. Able to bend andmove a little better and feels that exs have been helpfulPain/Symptom(s):Yes: Thigh right; Intensity:6.0/10. Pain is described as aching.Duration of pain is constant. some grabbing and sharpOBJECTIVE MEASURES WITH LEVEL OF FUNCTION: Pt continues to exhibit decreased knee flexion with gait. Decreased antalgictransfersTREATMENT: Therapeutic Exercise: standing left trunk lateral flexion 2x10 reps seated green rep band trunk extension 3x10, cues for form standing right hip SLR 2x10 standing right hip abduction 2x10 trial of hip extension standing, painful in hamstring so discontinued use of foam roller and lacrosse ball for soft tissue stretching to quad and I-Tband region x5 min while sitting hamstring stretch with foot on floor 30 sec x3 gentle prone prop lumbar x2 minutes attempts at heel slides but painful so discontinued attempt at prone knee extension stretch but painful so discontinued Skilled Intervention: Patient was educated in proper exercise technique andpurpose for exercises.Skilled judgment was provided in selection of appropriate interventions/advancement of exs.Provided written instruction for home exercise program to facilitate properperformance and compliance. Pt to add standing leg lifts , hip flexion andabduction, prone prop, and seated hamstring curlsCorrect performance of therapeutic exercises was facilitated with verbal andvisual cuing.Educated patient on rationale for performing exercises in regards to decreasingpainPost Treatment Pain/Symptom(s): a little more sore"ASSESSMENT: Pt with improved gait using st. cane and slightly decreased pain.Progressed exs. Pt with some relief with lumbar but still struggles with ROM andmobility of right knee and LE with pain. She remains motivated for therapyPLAN: Follow up for two visit(s) per week for four weeks for Gait training ,HEP, Manual therapy, Modalities, Therapeutic exercise and TractionBilling:[facility]: Therapeutic Exercise ([id number]): 1:1 time: 45 minutes (3units: 38-52 mins)Total time: 45 minutesLolis Hood PT - [facility] PROGRESSon 11-29-2016 PROGRESS HNO ID: [id number] thor: Lolis (Pt) Melodyervice: (none)Author Type: Physical TherapistType: Progress NotesFiled: 11/30/2016 11:37 AMNote Text:[facility] THERAP[facility]PHYSICAL THERAPY TREATMENT NOTEGENERAL RECORD INFORMATIONCURRENT VISIT NUMBER: 2 of 9 visits per current plan of careONSET:fall in June 20161st:11/22/16Cert Date:NATHERAPISTS NAME: Lolis Hood, PTINSURANCE TYPE: Payor: [facility] / Plan: AULTCARE / ProductType: Indemnity /REFERRING PROVIDER: Gregory Luna (Retail [employer]cer), *Relevant information: worse in August with pain in leg., in the car goingfor vacation sitting for 1 1/2 hours, could not get out of car entire legfrom thigh to calf area painful, unable to lift leg it was so painful .Fall involved twisting and hit right side. Has been walking withoutbending knee since that timePLAN OF CARE: 11/22/2016Patient identified by name and date: YesSUBJECTIVE: Pt notes that she has a little less pain today. Is going tohave another chiropractic treatment of stim to I-T band region. Able tobend and move a little better and feels that exs have been helpfulPain/Symptom(s):Yes: Thigh right; Intensity:6.0/10. Pain is described asaching. Duration of pain is constant. some grabbing and sharpOBJECTIVE MEASURES WITH LEVEL OF FUNCTION: Pt continues to exhibit decreased knee flexion with gait. Decreasedantalgic transfersTREATMENT: Therapeutic Exercise: standing left trunk lateral flexion 2x10 reps seated green rep band trunk extension 3x10, cues for form standing right hip SLR 2x10 standing right hip abduction 2x10 trial of hip extension standing, painful in hamstring so discontinued use of foam roller and lacrosse ball for soft tissue stretching to quadand I-T band region x5 min while sitting hamstring stretch with foot on floor 30 sec x3 gentle prone prop lumbar x2 minutes attempts at heel slides but painful so discontinued attempt at prone knee extension stretch but painful so discontinued Skilled Intervention: Patient was educated in proper exercise techniqueand purpose for exercises.Skilled judgment was provided in selection of appropriate interventions/advancement of exs.Provided written instruction for home exercise program to facilitateproper performance and compliance. Pt to add standing leg lifts , hipflexion and abduction, prone prop, and seated hamstring curlsCorrect performance of therapeutic exercises was facilitated with verbaland visual cuing.Educated patient on rationale for performing exercises in regards todecreasing painPost Treatment Pain/Symptom(s): " a little more sore"ASSESSMENT: Pt with improved gait using st. cane and slightly decreasedpain. Progressed exs. Pt with some relief with lumbar but still struggleswith ROM and mobility of right knee and LE with pain. She remainsmotivated for therapyPLAN: Follow up for two visit(s) per week for four weeks for Gait training, HEP, Manual therapy, Modalities, Therapeutic exercise and TractionBilling:[facility]: Therapeutic Exercise ([id number]): 1:1 time: 45minutes (3 units: 38-52 mins)Total time: 45 minutesLolis Hood PT [facility] CNTHERAPYon 11-22-2016 CNTHERAPY OT/PT/Speech Visit (PTWS) -----MARIELENA LUTZ ([id number]) 1955 F CHTDate Time Provider Department11/22/16 9:30 AM LOLIS HOOD (PT) PTWSEncounter Number: [id number] Time Provider Department [place]11/22/2016 9:30 AM [id number], LISA (PT) [facility]: PT Clyde [747] Patient Education [91]Primary Visit Diagnosis:Right leg pain [M79.604]Allergies As of Date: 11/22/2016 Noted Allergy ReactionRAGWEED 11/15/2016 9 - ItchingSULFA (SULFONAMIDE ANTIBIOTICS) 11/15/2016 4 - HivesDate Reviewed: 11/15/2016Reviewed by: Gregory Anton (Retail [employer]cer) SUMIT Luna - Fully AssessedPrescriptions as of 11/22/2016 Sig: ASPIRIN 81 MG TABLET,DELAYED * Take 81 mg by mouth once laila* METHYLPREDNISOLONE 4 MG TABLE* As Instructed per packageProgress Notes:Lolis Hood PT 11/22/2016 1:45 PM Signed[facility] THERAPYPHYSICAL THERAPY EXTREMITY EVALUATIONGENERAL RECORD INFORMATIONCURRENT VISIT NUMBER: 1 of 9 visits per current plan of careONSET:fall in June 20161st:11/22/16Cert Date:NATHERAPISTS NAME: Lolis Hood, PTINSURANCE TYPE: Payor: AULTCARE / Plan: AULTCARE / Product Type:Indemnity /REFERRING PROVIDER: Gregory Luna (Retail [employer]cer), *Relevant information: worse in August with pain in leg., in the car going forvacation sitting for 1 1/2 hours, could not get out of car entire leg from thighto calf area painful, unable to lift leg it was so painful . Fall involvedtwisting and hit right side. Has been walking without bending knee since thattimePLAN OF CARE: 11/22/2016Patient identified by name and date: YesSUBJECTIVE: Marielena Lutz is a 61 year old female seen today for pain inback of thigh and side to mid calf region .Pain/Symptoms: Yes: Thigh right; Intensity: 8.0/10. Pain is described as aching.Duration of pain is constant. 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 goes backwards down the stepsPatient Goals: return to prior level of functionPatient Reported Outcome Measures: See PT/OT Health Status belowIntake Information: Prescription present.Previous treatment: 2 chiropractic treatments, pressure points with somerelief.Falls Assessment: Fall with injury in the last year.Relevant medical history / Comorbidities: stroke 2 years ago Nov. affectedright side, 12 weeks of therapy., no other medical problems, sleep apneaOBJECTIVE MEASURES WITH LEVEL OF FUNCTION:Behavior: appropriateVital Signs: not taken d/t time constraintsPosture: Pt with increased lumbar lordosisAppearance/palpatio n: tenderness throughout lateral/ posterior thigh and calfregionROM:Lumbar: Flexion: Minimal limitationExtension: Moderate limitationSidebend Right: Minimal limitationSidebend Left: Minimal limitationKnee: Right: 15-73 degreesLeft: 0-120 degreesStrength:Hip: Right hip: flexion: 3-/5Left hip: flexion: 5/5Knee: Right knee: flexion: 3-/5 with painextension: /5Left knee: flexion: 5extension: /5Functional Strength: Pt unable to use right LE for stairs, difficulty in andout of car with pain trying to bend kneeBalance: not assessedFlexibility/Muscle Tightness: pt with firm end feel with knee flexion insupine, unable to assess hamstrings and quads todaySpecial Tests: stretching/ increased pain with end range trunk flexion instanding and sitting, slightly decreased with with extension in sitting. Leftlateral trunk flexion with slightly decreased pain. No change with isometricabdominals. Increased pain with attempt at hip and knee flexion during gait.Function/Gait: Pt ambulates with moderate gait deviation of no knee flexiondecreased swing on right, decreased stance time rightFunctional Performance Tests: None performedEducation:Learning preferences: Explanation, Demonstration, Performance and PrintedMaterialsBarriers: No barriersLearning/educationa l needs: Home Exercise ProgramPlan of careEducation Provided: See Treatment BelowAudience: PatientMethod of education: Explanation, Demonstration, Performance and PrintedMaterialsResponse: Applied knowledge, Demonstrated skill and Verbalized understandingTREATMENT:Eval uationTherapeutic Exercise: Pt was instructed in and completed exs of : seated and standing left trunk lateral flexion 5-10 reps seated green rep band trunk extension 1x[address] cane left hand 20'x1 with cues for proper form Skilled Intervention: Patient was educated in proper exercise technique andpurpose for exercises.Skilled judgment was provided in selection of appropriate interventions.Provided written instruction for home exercise program to facilitate properperformance and compliance.Correct performance of therapeutic exercises was facilitated with verbal andvisual cuing.Educated patient on rationale for performing exercises in regards to decreasingpainPost Treatment Pain/Symptoms: No changePLAN OF CARE:Assessment: Marielena Lutz presents with the chief complaint of right legpain. She presents with impairments of gait deviation, decreased hip and kneestrength d/t pain, decreased right knee ROM. She may benefit from skilledtherapy services to improve pain and functional deficits. Pain is widespreadwhich may indicate some lumbar/nerve involvment but may also have somelocalized knee. hip origin as well, which may either be primary or secondaryfrom compensation and gait deviation..Prognosis is Good due to current objective clinical presentation , but may takesome time to sort out true origin of painGoals for Episode of Care: created on 11/22/2016 through 01/21/2017Independence in home exercise program.Patient will decrease pain to 5/10 with functional activities to allow patientto improve ambulation and standing tolerance for ADLs.Patient will increase active ROM of right knee to 0-120 to allow pt toimproved performance of ADLs and to normalize gait mechanics / gait pattern .Patient will increase strength of right LE to 4+/5 to allow for return to priorfunctional status, normalized gait mechanics, perform ADLs and negotiate stairs.Normal gait.Reciprocal stair negotiation.Planned Interventions, Frequency, and Duration: Follow up for two visit(s) perweek for four weeks for Gait training , HEP, Manual therapy, Modalities,Therapeutic exercise and TractionPatient demonstrates good understanding of plan of care and treatment. Theabove goals and plan of care were discussed and agreed upon by patient/family.B[facility]: Evaluation - Moderate Complexity ([id number])Therapeutic Exercise ([id number]): 1:1 time: 20 minutes (1 unit: 8-22 mins)Total time: 40 minutesLolis Hood PT - [facility] PROGRESSon 11-22-2016 PROGRESS HNO ID: [id number] thor: Lolis (Pt) NavjotonService: (none)Author Type: Physical TherapistType: Progress NotesFiled: 11/22/2016 1:45 PMNote Text:[facility] THERAPYPHYSICAL THERAPY EXTREMITY EVALUATIONGENERAL RECORD INFORMATIONCURRENT VISIT NUMBER: 1 of 9 visits per current plan of careONSET:fall in June 20161st:11/22/16Cert Date:NATHERAPISTS NAME: Lolis Hood PTINSURANCE TYPE: Payor: [employer]ULTCARE / Plan: AULTCARE / ProductType: Indemnity /REFERRING PROVIDER: Gregory Luna (Retail Grocer), *Relevant information: worse in August with pain in leg., in the car goingfor vacation sitting for 1 1/2 hours, could not get out of car entire legfrom thigh to calf area painful, unable to lift leg it was so painful .Fall involved twisting and hit right side. Has been walking withoutbending knee since that timePLAN OF CARE: 11/22/2016Patient identified by name and date: YesSUBJECTIVE: Marielena Lutz is a 61 year old female seen today for painin back of thigh and side to mid calf region .Pain/Symptoms: Yes: Thigh right; Intensity: 8.0/10. Pain is described asaching. Duration of pain is constant. 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 goes backwards down the stepsPatient Goals: return to prior level of functionPatient Reported Outcome Measures: See PT/OT Health Status belowIntake Information: Prescription present.Previous treatment: 2 chiropractic treatments, pressure points with somerelief.Falls Assessment: Fall with injury in the last year.Relevant medical history / Comorbidities: stroke 2 years ago Nov.affected right side, 12 weeks of therapy., no other medical problems,sleep apneaOBJECTIVE MEASURES WITH LEVEL OF FUNCTION:Behavior: appropriateVital Signs: not taken d/t time constraintsPosture: Pt with increased lumbar lordosisAppearance/palpatio n: tenderness throughout lateral/ posterior thigh and calf regionROM:Lumbar: Flexion: Minimal limitationExtension: Moderate limitationSidebend Right: Minimal limitationSidebend Left: Minimal limitationKnee: Right: 15-73 degreesLeft: 0-120 degreesStrength:Hip: Right hip: flexion: 3-/5Left hip: flexion: 5/5Knee: Right knee: flexion: 3-/5 with painextension: 3/5Left knee: flexion: 5/5extension: 5/5Functional Strength: Pt unable to use right LE for stairs, difficulty inand out of car with pain trying to bend kneeBalance: not assessedFlexibility/Muscle Tightness: pt with firm end feel with knee flexionin supine, unable to assess hamstrings and quads todaySpecial Tests: stretching/ increased pain with end range trunk flexion instanding and sitting, slightly decreased with with extension in sitting.Left lateral trunk flexion with slightly decreased pain. No change withisometric abdominals. Increased pain with attempt at hip and knee flexionduring gait.Function/Gait: Pt ambulates with moderate gait deviation of no kneeflexion decreased swing on right, decreased stance time rightFunctional Performance Tests: None performedEducation:Learning preferences: Explanation, Demonstration, Performance and PrintedMaterialsBarriers: No barriersLearning/educationa l needs: Home Exercise ProgramPlan of careEducation Provided: See Treatment BelowAudience: PatientMethod of education: Explanation, Demonstration, Performance and PrintedMaterialsResponse: Applied knowledge, Demonstrated skill and VerbalizedunderstandingTREA TMENT:EvaluationTherapeutic Exercise: Pt was instructed in and completed exs of : seated and standing left trunk lateral flexion 5-10 reps seated green rep band trunk extension 1x[address] cane left hand 20'x1 with cues for proper form Skilled Intervention: Patient was educated in proper exercise techniqueand purpose for exercises.Skilled judgment was provided in selection of appropriate interventions.Provided written instruction for home exercise program to facilitateproper performance and compliance.Correct performance of therapeutic exercises was facilitated with verbaland visual cuing.Educated patient on rationale for performing exercises in regards todecreasing painPost Treatment Pain/Symptoms: No changePLAN OF CARE:Assessment: Marielena Lutz presents with the chief complaint of rightleg pain. She presents with impairments of gait deviation, decreasedhip and knee strength d/t pain, decreased right knee ROM. She may benefitfrom skilled therapy services to improve pain and functional deficits.Pain is widespread which may indicate some lumbar/nerve involvment butmay also have some localized knee. hip origin as well, which may either beprimary or secondary from compensation and gait deviation..Prognosis is Good due to current objective clinical presentation , but maytake some time to sort out true origin of painGoals for Episode of Care: created on 11/22/2016 through 01/21/2017Independence in home exercise program.Patient will decrease pain to 5/10 with functional activities to allowpatient to improve ambulation and standing tolerance for ADLs.Patient will increase active ROM of right knee to 0-120 to allow pt toimproved performance of ADLs and to normalize gait mechanics / gaitpattern .Patient will increase strength of right LE to 4+/5 to allow for return toprior functional status, normalized gait mechanics, perform ADLs andnegotiate stairs.Normal gait.Reciprocal stair negotiation.Planned Interventions, Frequency, and Duration: Follow up for two visit(s)per week for four weeks for Gait training , HEP, Manual therapy,Modalities, Therapeutic exercise and TractionPatient demonstrates good understanding of plan of care and treatment.The above goals and plan of care were discussed and agreed upon bypatient/family.Billing:Bertin [facility]: Evaluation - Moderate Complexity (83104)Therapeutic Exercise (67042): 1:1 time: 20 minutes (1 unit: 8-22 mins)Total time: 40 minutesLolis Hood PT [facility] CNOVon 11-15-2016 CNOV Office Visit ([facility]) -------MARIELENA LUTZ ([id number]) 1955 F TDa Time Provider Department11/15/16 10:15 AM GREGORY LUNA (POSTAL MAIL CARRIER) [facility]STR During your visit today, we recorded the following information about you: Temperature Pulse Respiration Blood pressure 98.7 degrees 60/minute 16/minute 120/80 Weight 113.9 kgGregory Luna CNP, SUMIT 11/15/2016 11:02 AM SignedHPIPatient presents with:Musculoskeletal Problem: right lower leg x5 months, getting worseStates has been evaluated by PCP numerous times but becoming frustrated withlack of answers and switching PCP. Pt states since August has had a venousdoppler of right lower ext, MRI of lower back and xray of lower leg withnegative results. These were all done at [facility] per pt.Pt states she has at chiropractor last week and pt states she was told she hada ANDquot;twisted muscleANDquot; in her right thigh.Analgesics otc with minimal relief.Requesting an MRI and PT.Has a pending appt with new PCP Dr. Sow but not til February.Review of SystemsMusculoskeletal: Negative for back pain. Right thigh, knee, and calf pain x 5 months, originally from [facility] other systems reviewed and are negative.No past medical history on file.No past surgical history on file.ALLERGIES Ragweed; Sulfa (Sulfonamide Antibiotics)MEDICATIONSaspi rin, enteric coated (ASPIRIN, ENTERIC COATED) 81 mg EC tablet Take 81 mg bymouth once daily.methylPREDNISolone (MEDROL, ISELA,) 4 mg Dose-Pack As Instructed per packageNo family history on file.Social HistorySubstance Use Topics- Smoking status: Never Smoker- Smokeless tobacco: Not on file- Alcohol use Not on filePhysical ExamMusculoskeletal: Right knee: She exhibits decreased range of motion. She exhibits noecchymosis, no deformity, no erythema and no bony tenderness. Tenderness found.Medial joint line, lateral joint line, MCL and LCL (greater than MCLtenderness) tenderness noted. No patellar tendon tenderness noted. Right ankle: Normal. Right upper leg: She exhibits tenderness (general TTP). She exhibits nobony tenderness and no deformity. Right lower leg: She exhibits tenderness (general +TTP) and swelling (b/llower leg edema, right mildly ANDgt;left). She exhibits no bony tenderness. Right foot: Normal.Nursing note and vitals reviewed.ASSESSMENT/PLAN:1. Right leg pain - ICD9: 729.5, ICD10: M79.604- Medrol dose pack- Reviewed red flags and when to seek care sooner.- CONSULT TO ORTHOPAEDICS- CONSULT TO PHYSICAL THERAPYPrescription instructions reviewed with patient as applicable. Patient advisedif symptoms do not improve or if symptoms worsen sooner, to contact theirprimary care physician. Potential red flag symptoms discussed with thepatient. Reviewed appropriate action plan to take if red flag symptoms occur.Patient agreeable to treatment plan.Gregory Luna CNPReferring Provider: SELF [200]Allergies As of Date: 11/15/2016 Noted Allergy ReactionRAGWEED 11/15/2016 9 - ItchingSULFA (SULFONAMIDE ANTIBIOTICS) 11/15/2016 4 - HivesDate Reviewed: 11/15/2016Reviewed by: Gregory Anton (Leti) SUMIT Luna - Fully AssessedReason for Visit: Musculoskeletal Problem [69] Cmt: x5 months, getting worsePrimary Visit Diagnosis:Right leg pain [M79.604]Order(s):CONSULT TO ORTHOPAEDICS [9065] Order #: [id number]: 1 methylPREDNISolone (MEDROL, ISELA,) 4 mg Dose-PackAs Instructed per packageDisp: 1 PackageRfl: 0 CONSULT TO PHYSICAL THERAPY [9059] Order #: [id number]: 1Prescriptions as of 11/15/2016 Sig: ASPIRIN 81 MG TABLET,DELAYED * Take 81 mg by mouth once laila* METHYLPREDNISOLONE 4 MG TABLE* As Instructed per packageProblem List As Of Date: 11/15/2016(None)Prescriptio ns ordered this encounter Disp Refills Start End METHYLPREDNISOLONE 4 MG TABLETS IN A* 1 Pa* 0 11/15/2016 Sig: As Instructed per packageDisposition: Return if symptoms worsen or fail to improve.Follow-up and Disposition History RecordedEncounter Number: [id number] Status:Closed by GREGORY LUNA on 11/15/16 [facility] PROGRESSon 11-15-2016 PROGRESS HNO ID: [id number] thor: Gregory Anton (Retail [employer]cer) SUMIT LunaService: (none)Author Type: Nurse PractitionerType: Progress NotesFiled: 11/15/2016 11:02 AMNote Text:HPIPatient presents with:Musculoskeletal Problem: right lower leg x5 months, getting worseStates has been evaluated by PCP numerous times but becoming frustratedwith lack of answers and switching PCP. Pt states since August has had avenous doppler of right lower ext, MRI of lower back and xray of lower legwith negative results. These were all done at [facility], [facility] per pt.Pt states she has at chiropractor last week and pt states she was told shehad a "twisted muscle" in her right thigh.Analgesics otc with minimal relief.Requesting an MRI and PT.Has a pending appt with new PCP Dr. Sow but not til February.Review of SystemsMusculoskeletal: Negative for back pain. Right thigh, knee, and calf pain x 5 months, [place] other systems reviewed and are negative.No past medical history on file.No past surgical history on file.ALLERGIES Ragweed; Sulfa (Sulfonamide Antibiotics)MEDICATIONSaspi rin, enteric coated (ASPIRIN, ENTERIC COATED) 81 mg EC tablet Take 81mg by mouth once daily.methylPREDNISolone (MEDROL, ISELA,) 4 mg Dose-Pack As Instructed per packageNo family history on file.Social HistorySubstance Use Topics- Smoking status: Never Smoker- Smokeless tobacco: Not on file- Alcohol use Not on filePhysical ExamMusculoskeletal: Right knee: She exhibits decreased range of motion. She exhibits noecchymosis, no deformity, no erythema and no bony tenderness. Tendernessfound. Medial joint line, lateral joint line, MCL and LCL (greater thanMCL tenderness) tenderness noted. No patellar tendon tenderness noted. Right ankle: Normal. Right upper leg: She exhibits tenderness (general TTP). She exhibitsno bony tenderness and no deformity. Right lower leg: She exhibits tenderness (general +TTP) and swelling(b/l lower leg edema, right mildly >left). She exhibits no bonytenderness. Right foot: Normal.Nursing note and vitals reviewed.ASSESSMENT/PLAN:1. Right leg pain - ICD9: 729.5, ICD10: M79.604- Medrol dose pack- Reviewed red flags and when to seek care sooner.- CONSULT TO ORTHOPAEDICS- CONSULT TO PHYSICAL THERAPYPrescription instructions reviewed with patient as applicable. Patientadvised if symptoms do not improve or if symptoms worsen sooner, tocontact their primary care physician. Potential red flag symptomsdiscussed with the patient. Reviewed appropriate action plan to take ifred flag symptoms occur. Patient agreeable to treatment plan.Gregory Luna CNP [facility] Vital Signs Date Time Vital Sign Value Performing Clinician Estrella craft 11-12-2024 08:190400 Body height 157.[address] Bernarda Mora MD Work Phone: [facility] 11-12-2024 08:19-0400 Body mass index (BMI) [Ratio] 42.6 kg/m2 Dr. Bernarda Mora MD Work Phone: [facility] 11-12-2024 08:19-0400 Body temperature 97.5 [degF] Dr. Bernarda Mora MD Work Phone: [facility] 11-12-2024 08:19-0400 Body weight 105.[address] Bernarda Mora MD Work Phone: [facility] 11-12-2024 08:19-0400 Diastolic blood pressure 81 mm[Hg] Dr. Bernarda Mora MD Work Phone: [facility] 11-12-2024 08:19-0400 Heart rate 62 /min Dr. Bernarda Mora MD Work Phone: [facility] 11-12-2024 08:19-0400 Respiratory rate 18 /min Dr. Bernarda Mora MD Work Phone: [facility] 11-12-2024 08:19-0400 SaO2% (BldA) [Mass fraction] 96 % Dr. Bernarda Mora MD Work Phone: [facility] 11-12-2024 08:19-0400 Systolic blood pressure 148 mm[Hg] Dr. Bernarda Mora MD Work Phone: [facility] 06-03-2022 08:05-0400 Body height 157.[address] Igor Velez Work Phone: [facility] 06-03-2022 08:05-0400 Body mass index (BMI) [Ratio] 46 kg/m2 Dr. Igor Velez Work Phone: [facility] 06-03-2022 08:05-0400 Body temperature 97.6 [degF] Dr. Igor Velez Work Phone: [facility] 06-03-2022 08:05-0400 Body weight 114.[address] Igor Velez Work Phone: [facility] 06-03-2022 08:05-0400 Diastolic blood pressure 76 mm[Hg] Dr. Igor Velez Work Phone: [facility] 06-03-2022 08:05-0400 Heart rate 83 /min Dr. Igor Velez Work Phone: [facility] 06-03-2022 08:05-0400 Respiratory rate 20 /min Dr. Igor Velez Work Phone: [facility] 06-03-2022 08:05-0400 SaO2% (BldA) [Mass fraction] 98 % Dr. Igor Velez Work Phone: [facility] 06-03-2022 08:05-0400 Systolic blood pressure 144 mm[Hg] Dr. Igor Velez Work Phone: [facility] 03-19-2022 12:29-0500 Body temperature 98 [degF] Dr. Igor Velez Work Phone: [facility] 03-19-2022 12:29-0500 Diastolic blood pressure 88 mm[Hg] Dr. Igor Velez Work Phone: [facility] 03-19-2022 12:29-0500 Heart rate 85 /min Dr. Igor Velez Work Phone: [facility] 03-19-2022 12:29-0500 Respiratory rate 18 /min Dr. Igor Velez Work Phone: [facility] 03-19-2022 12:29-0500 SaO2% (BldA) [Mass fraction] 99 % Dr. Igor Velez Work Phone: [facility] 03-19-2022 12:29-0500 Systolic blood pressure 142 mm[Hg] Dr. Igor Velez Work Phone: [facility] Encounters Encounter Date Encounter Type Care Provider Facility Start: 11-12-2024 End: 11-12-2024 Patient encounter procedure [facility] Work Phone: Start: 11-12-2024 End: 11-12-[address] Bernarda Mora MD Work Phone: -[facility] Start: 01-19-2024 End: 01-19-2024 ambulatory Bernarda Mora Facility:[facility] Start: 07-19-2022 End: 07-19-[address] Igor Velez Work Phone: [facility] Work Phone: Start: 07-19-2022 End: 07-19-[address] Igor Velez Work Phone: [facility] Start: 06-18-2022 End: 06-18-[address] Igor Velez Work Phone: [facility] Work Phone: Start: 06-18-2022 End: 06-18-[address] Igor Velez Work Phone: [facility] Start: 06-03-2022 End: 06-03-[address] [facility] Start: 03-19-2022 End: 03-19-[address] Igor Velez Work Phone: [facility] Start: 03-24-2017 End: 03-24-2017 Ambulatory Maxi WALTERS (SHARRI) [facility] Start: 03-16-2017 End: 03-16-2017 Ambulatory JACQUE SOW [facility] Start: 03-16-2017 End: 03-21-2017 Ambulatory JACQUE SOW [facility] Start: 03-15-2017 End: 03-17-2017 Ambulatory LOLIS (PT) [facility] Start: 03-04-2017 End: 03-08-2017 [facility]: 02-23-2017 End: 02-24-2017 Ambulatory LOLIS (PT) [facility] Start: 02-15-2017 End: 02-16-2017 Ambulatory LOLIS (PT) [facility] Start: 01-10-2017 End: 01-10-2017 Ambulatory LOLIS (PT) [facility] Start: 12-20-2016 End: 12-20-2016 Ambulatory LOLIS (PT) [facility] Start: 12-13-2016 End: 12-13-2016 Ambulatory LOLIS (PT) [facility] Start: 12-06-2016 End: 12-06-2016 Ambulatory LOLIS (PT) [facility] Start: 12-03-2016 End: 12-03-2016 Ambulatory LOLIS (PT) [facility] Start: 11-29-2016 End: 11-29-2016 Ambulatory LOLIS (PT) [facility] Start: 11-22-2016 End: 11-22-2016 Ambulatory LOLIS (PT) [facility] Start: 11-15-2016 End: 11-16-2016 Ambulatory INGLISH (ASPHALT ENGINEER) [facility] Plan of Treatment Date Care Activity Detail Author Electrocardiographic procedure [facility] Payers Date Payer Category Payer Private Health Insurance [id number] 2024 Self-pay [id number] 2023 Medicare [id number] 2023 Medicare [id number] Unknown [id number] Unknown [facility] PACKAGE PLAN [id number] Unknown [id number] Unknown [id number] Social History Date Type Detail Facility [facility]: [facility] Start: 1955 Sex Assigned At Female [facility] Start: 01-11-2023 [facility] Start: 01-18-2015 Alcohol Alcohol [facility] Start: 01-18-2015 Lives Lives [facility] Start: 01-17-2015 Tobacco Use Tobacco Use [facility] Medical Equipment Procedure Code Equipment Code Equipment Origin al Text Equipment Identifier Dates TUBE, EAR PARASOL.040 FDA Start: 06-23-2017 TUBE, EAR PARASOL.040 FDA Start: 06-23-2017 TUBE, EAR PARASOL.040 FDA Start: 06-23-2017 TUBE, EAR PARASOL.040 FDA Start: 06-23-2017 TUBE, EAR PARASOL.040 FDA Start: 06-23-2017 TUBE, EAR PARASOL.040 FDA Start: 06-23-2017 Evaluation note Note Date & Type Note Facility Evaluation note Diagnosis Onset Date Bilateral otitis externa acu te Irregular heart rhythm acute Morbid (severe) obesity due to excess calories acute Sleep apnea [facility] Work Phone: Evaluation note Note Date & Type Note Facility Evaluation note Diagnosis Onset Date Irregular heart rhythm acute Morbid (severe) obesity due to excess calories acute Sleep apnea [facility] Work Phone: Evaluation note Note Date & Type Note Facility Evaluation note No assessment information availa tian [facility] Work Phone: Reason for referral (narrative) Note Date & Type Note Facility Reason for referral (narrative) No reason for referral information available [facility] Work Phone: Summary Purpose Family History No Family History Records Found Relationship Condition Age at Onset Recorded Date/T liset Not Specified Diabetes mellitus Unknown Hypertension Unknown Advance Directives No Advanced Directives Records Found Advance Directive Response Recorded Date/ Time Advance Directives No December 6:42pm Living Will No July 26, 2021 1 1:43pm Power of Grounds Caretaker No July 26, 2021 11:43pm Advance Directive Response Recorded Date/ Time Living Will No July 26, 2021 1 1:43pm Do you have a Healthcare Power of Grounds Caretaker? No July 26, 2021 11:43pm Advance Directives No December 6:42pm Chief Complaint and Reason for Visit Chief Complaint EAR INFECTION BOTH S IDES Sleep apnea SLEEP APNEA UNSPECIFIED Reason for Visit Bilateral otitis ext johana Irregular heart rhythm Morbid (severe) obesity due to excess calories Sleep apnea Chief Complaint Sleep apnea SLEEP APNEA UNSPECIFIED MANI; CPAP *DEVICE TAGGED Reason for Visit Irregular heart rhyt hm Morbid (severe) obesity due to excess calories Sleep apnea Chief Complaint Admit Date 1 Y FU November 12, 2024 8:38am Additional Source Comments INFORMATION SOURCE (unrecogn ized section and content) DATE CREATED AUTHOR 08/19/2017 [facility] DATE CREATED AUTHOR AUTHOR'S ORGANIZ ATION 11/13/2024 [facility] Care Teams (unrecognized sec tion and content) Team Status: Active Member Role Status Dates Dr. Igor Velez MD Family Provider Active Dr. Igor Velez MD Primary Care Provider Activ e Team Status: Inactive Member Role Status Dates Dr. Igor Velez MD Primary Care Provider, Refe rring Provider Active Costa HARDIN PA Attending Provider Active Team Status: Inactive Member Role Status Dates Dr. Igor Velez MD Primary Care Provider, Refe rring Provider Active Marlene Bazan POSTAL MAIL CARRIER, POSTAL MAIL CARRIER-C Attending Provider Active Team Status: Inactive Member Role Status Dates Dr. Igor Velez MD Primary Care Provider Activ e Marlene Bazan POSTAL MAIL CARRIER, POSTAL MAIL CARRIER-C Attending Provider, [facility] Active Team Status: Active Member Role/Relationship Status Dates Dr. Haider Velez MD Family Provider Active Dr. Bernarda Mora MD Primary Care Provider Active Team Status: Inactive Member Role/Relationship Status Dates Dr. Bernarda Mora MD Primary Care Provider Active Start: November 12, 2024 End: November 12, 2024 Dr. Bernarda Mora MD Referring Provider Active Start: November 12, 2024 End: November 12, 2024 Marlene Bazan POSTAL MAIL CARRIER, POSTAL MAIL CARRIER-C Attending Provider Active Start: November 12, 2024 End: November 12, 2024 Goals (unrecognized section and content) Goals may be documented in a n alternate sectionGoals may be documented in an alternate sectionGoals may be documented in an alternate section FOR RECORDS PERTAINING TO PATIENTS WHO ARE OR HAVE BEEN ENROLLED IN A CHEMICAL DEPENDENCY/SUBSTANCEABUSE PROGRAM, SOME INFORMATION MAY BE OMITTED. This clinical summary was aggregated from multiple sources. Caution should be exercised in using it in the provision of clinical care. This summary normalizes information from multiple sources, and as a consequence, information in this document may materially change the coding, format and clinical context of patient data. In addition, data may be omitted in some cases. CLINICAL DECISIONS SHOULD BE BASED ON THE PRIMARY CLINICAL RECORDS. [facility] provides no warranty or guarantee of the accuracy or completeness of information in this document.
--- NOTE | 2025-01-12 10:54 | RAD_ITS ---
PROCEDURE: SHOULDER MIN 2 VIEWS; HAND MIN 3 VIEWS; ELBOW 2 VIEWS; FOREARM 2 VIEWS 01/12/2025 REASON FOR EXAM: FALL Pain. TECHNIQUE: Procedure Code: RADSH; KEVIN; RADEL2; RADFA Modality: DX Procedure: SHOULDER MIN 2 VIEWS; HAND MIN 3 VIEWS; ELBOW 2 VIEWS; FOREARM 2 VIEWS Laterality: Right COMPARISON: None available for review. FINDINGS: Radiographs of the right shoulder were acquired with radiographs of the right elbow as well as radiographs of the right forearm and right hand as separate examination is submitted for concurrent review. Right shoulder: Degenerative changes of the glenohumeral and acromioclavicular joint without acute fracture or subluxation. Imaged portions of the right lung are clear. Soft tissues are unremarkable. Right elbow/right forearm: Radial head dislocation with questionable fragmentation. The ulna may also be dislocated posteriorly. Small elbow effusion. Tiny right olecranon enthesophyte. The soft tissues are otherwise unremarkable. Right hand: Radiographs of the right hand demonstrate anatomic alignment without acute fracture or subluxation. Degenerative changes of the distal radioulnar joint as well as the 1st carpometacarpal joint and the distal 2nd through 5th interphalangeal joints. Fusiform soft tissue swelling of the 2nd and 3rd digits without radiopaque foreign body. RAD/Hand Min 3 Views IMPRESSION: 1. Posterior ulnar and radial head dislocation with questionable minimal fragm entation. 2. Degenerative changes of the right shoulder as well as the right hand. No f racture or subluxation. Reading Location: [id number]
--- NOTE | 2025-01-12 10:54 | RAD_ITS ---
PROCEDURE: KNEE 1 OR 2 VIEWS; FEMUR MIN 2 VIEWS 01/12/2025 REASON FOR EXAM: FALL Pain TECHNIQUE: Procedure Code: RADK; RADFEM Modality: DX Procedure: KNEE 1 OR 2 VIEWS; FEMUR MIN 2 VIEWS Laterality: Right COMPARISON: Hip radiographs from 09 September 2023 FINDINGS: Radiographs of the right femur were acquired with radiographs of the right hip as separate examination is submitted for concurrent review which demonstrate anatomic alignment without acute fracture or subluxation. Proliferative degenerative changes of the right hip as well as the right knee. Marginal patellar, femoral, and tibial osteophytes with small right knee effusion and medial compartmental joint space narrowing with subchondral sclerosis. Tiny right knee effusion. The soft tissues are otherwise unremarkable. RAD/Femur Min 2 Views IMPRESSION: Moderate tricompartmental osteoarthritic degenerative changes of the right knee with small right knee effusion in addition to mild degenerative changes of the right hip. No fracture or subluxation. Reading Location: [id number]
--- NOTE | 2025-01-12 10:54 | RAD_ITS ---
PROCEDURE: KNEE 1 OR 2 VIEWS; FEMUR MIN 2 VIEWS 01/12/2025 REASON FOR EXAM: FALL Pain TECHNIQUE: Procedure Code: RADK; RADFEM Modality: DX Procedure: KNEE 1 OR 2 VIEWS; FEMUR MIN 2 VIEWS Laterality: Right COMPARISON: Hip radiographs from 09 September 2023 FINDINGS: Radiographs of the right femur were acquired with radiographs of the right hip as separate examination is submitted for concurrent review which demonstrate anatomic alignment without acute fracture or subluxation. Proliferative degenerative changes of the right hip as well as the right knee. Marginal patellar, femoral, and tibial osteophytes with small right knee effusion and medial compartmental joint space narrowing with subchondral sclerosis. Tiny right knee effusion. The soft tissues are otherwise unremarkable. RAD/Knee 1 or 2 Views IMPRESSION: Moderate tricompartmental osteoarthritic degenerative changes of the right knee with small right knee effusion in addition to mild degenerative changes of the right hip. No fracture or subluxation. Reading Location: [id number]
--- NOTE | 2025-01-12 10:54 | RAD_ITS ---
PROCEDURE: SHOULDER MIN 2 VIEWS; HAND MIN 3 VIEWS; ELBOW 2 VIEWS; FOREARM 2 VIEWS 01/12/2025 REASON FOR EXAM: FALL Pain. TECHNIQUE: Procedure Code: RADSH; KEVIN; RADEL2; RADFA Modality: DX Procedure: SHOULDER MIN 2 VIEWS; HAND MIN 3 VIEWS; ELBOW 2 VIEWS; FOREARM 2 VIEWS Laterality: Right COMPARISON: None available for review. FINDINGS: Radiographs of the right shoulder were acquired with radiographs of the right elbow as well as radiographs of the right forearm and right hand as separate examination is submitted for concurrent review. Right shoulder: Degenerative changes of the glenohumeral and acromioclavicular joint without acute fracture or subluxation. Imaged portions of the right lung are clear. Soft tissues are unremarkable. Right elbow/right forearm: Radial head dislocation with questionable fragmentation. The ulna may also be dislocated posteriorly. Small elbow effusion. Tiny right olecranon enthesophyte. The soft tissues are otherwise unremarkable. Right hand: Radiographs of the right hand demonstrate anatomic alignment without acute fracture or subluxation. Degenerative changes of the distal radioulnar joint as well as the 1st carpometacarpal joint and the distal 2nd through 5th interphalangeal joints. Fusiform soft tissue swelling of the 2nd and 3rd digits without radiopaque foreign body. RAD/Shoulder min 2 Views IMPRESSION: 1. Posterior ulnar and radial head dislocation with questionable minimal fragm entation. 2. Degenerative changes of the right shoulder as well as the right hand. No f racture or subluxation. Reading Location: [id number]
[2025-01-12 11:32] LABS: Mucous, Urine 0 SEEN /hpf (<or=2+); Red Blood Cells-Urine 0 SEEN /hpf (0-5); Squamous Epithelial Cells - UA 0 SEEN /hpf (5-10)
[2025-01-12 11:36] LABS: Color, Urine Yellow (Yellow); Glucose, Dipstick 1000 mg/dl (Normal); Ketone-Dipstick 15 mg/dl (Negative); Leukocyte Esterase-Dipstick Negative /ul (Negative); Nitrite-Dipstick Negative (Negative); Occult Blood-Urine Negative /ul (Negative); Protein-Dipstick 15 mg/dl (Negative); Specific Gravity, Urine 1.005 (1.002-1.030); Urine Bilirubin Dipstick Negative (Negative)
--- NOTE | 2025-01-12 12:20 | RAD_ITS ---
PROCEDURE: ELBOW 2 VIEWS 01/12/2025 REASON FOR EXAM: Dislocated elbow TECHNIQUE: Procedure Code: RADEL2 Modality: DX Procedure: ELBOW 2 VIEWS Laterality: Right COMPARISON: Earlier today FINDINGS: Study is labeled as postreduction attempt 1. There is persistent dislocation of the ulna and radius relative to the distal humerus. The distal humerus is projected anteriorly relative to the proximal radius and ulna. No clearly demonstrated fracture but the distal humerus, proximal ulna and proximal radius are not well-visualized There is associated soft tissue swelling RAD/Elbow 2 Views IMPRESSION: Persistent dislocation of the elbow joints with soft tissue swelling and joint effusion No clearly demonstrated fracture Reading Location: [id number]
--- NOTE | 2025-01-12 12:25 | RAD_ITS ---
PROCEDURE: ELBOW 2 VIEWS 01/12/2025 REASON FOR EXAM: Dislocation TECHNIQUE: Procedure Code: RADEL2 Modality: DX Procedure: ELBOW 2 VIEWS Laterality: Right COMPARISON: Earlier today FINDINGS: This study is listed as postreduction 2. It is limited to a single lateral view. There is now near anatomic alignment of the radiocapitellar and ulnar trochlear joint spaces. There is persistent subluxation of the joint spaces and abnormal widening of the joint spaces with associated soft tissue swelling and joint effusion. This limited study shows cortical irregularity in the proximal radial head consistent with a minimally displaced osteochondral fracture. No demonstrated fracture in the distal humerus or proximal ulna There is a triceps insertion spur RAD/Elbow 2 Views IMPRESSION: Near anatomic alignment with persistent subluxation and widening of the radioca pitellar and ulnar trochlear joint spaces after a 2nd attempt at reduction. Acute minimally displaced osteochondral fracture of the radial head Triceps insertion spur Soft tissue swelling and joint effusion Study is limited, only 1 lateral view obtained Reading Location: [id number]
--- NOTE | 2025-01-12 12:55 | RAD_ITS ---
PROCEDURE: ELBOW MIN 3 VIEWS 01/12/2025 REASON FOR EXAM: Dislocation TECHNIQUE: Procedure Code: RONY Modality: DX Procedure: ELBOW MIN 3 VIEWS Laterality: Right COMPARISON: None FINDINGS: This film is labeled postreduction 3. Patient suffered a previously described a dislocated elbow joint. Limited study due to overlying casting material. There is anatomic alignment of the radiocapitellar and ulnar trochlear joint spaces but they are widened and there is cortical irregularity in the proximal radius suggesting a nondisplaced fracture is present. There is diffuse soft tissue swelling and joint effusion. RAD/Elbow min 3 Views IMPRESSION: Limited study shows anatomic alignment of the radiocapitellar and ulnar trochle ar joint spaces but they are abnormally widened. Cortical irregularity noted in the proximal radius suggesting a nondisplaced os teochondral fracture is present Soft tissue swelling and joint effusion Study limited by positioning, and overlapping casting material Reading Location: [id number]
[2025-01-12] MEDS: HYDROcodone Bitartrate/Apap 5/325 Tablet PO (15:41)
== END 2025-01-12 16:37 | disposition home or self-care (01) ==
PROVIDERS: Emergency Provider Emergency Medicine; PCP Family Medicine; Visit Provider Emergency Medicine
DX: S53.024A Posterior dislocation of right radial head, initial encounter (principal); E11.9 Type 2 diabetes mellitus without complications; N13.2 Hydronephrosis with renal and ureteral calculous obstruction; S05.11XA Contusion of eyeball and orbital tissues, right eye, initial encounter; S61.411A Laceration without foreign body of right hand, initial encounter; Z86.73 Personal history of transient ischemic attack (TIA), and cerebral infarction without residual deficits; S00.211A Abrasion of right eyelid and periocular area, initial encounter; S00.03XA Contusion of scalp, initial encounter; W19.XXXA Unspecified fall, initial encounter; Z23 Encounter for immunization
CPT/HCPCS: 24605; 12001; 24600; 70450; 70486; 71260; 72125; 73030; 73070; 73080; 73090; 73130; 73552; 73560; 74177; 80048; 80076; 81001; 82550; 85025; 85610; 85730; 90471; 90715; 93005; 96361; 96374; 96375; 96376; 99152; 99153; 99285; A4216; J2405